=== PATIENT | female | born 1990 | race Caucasian/White ===

== ENCOUNTER → 2024-03-31 10:33 | Outpatient (BNVA) | payer BC, SELFPAY | PROVIDERS: Visit Provider Surgery ==

== ENCOUNTER 2024-04-08 07:53 | Outpatient (AMB) | payer BC, SELFPAY ==
--- OUTSIDE RECORDS SUMMARY | 2024-04-08 07:55 | XMS_ITS | Continuity of Care Document ---
Author Organization [facility] [employer]. Address [address] [place] [address] Phone Allergies, Adverse Reactions, Alerts No known allergies Social History Smoking Status Status Start Date End Date Date of Observa tion Never smoked tobacco (finding) January 25, 2024 4:49pm Observation Status Observation Response Date of Response Patient Sex Female February 06, 2024 12:57pm Assigned Sex Female December 12 1 Status Not July 30, 024 Family History Relationship Condition Age at Onset Recorded Date/T jamilah Not Specified Arthritis Unknown Not Specified Anxiety Unknown Intellectual disability Unknown Asthma Unknown Malignant neoplasm of colon Unknown Not Specified Anxiety Unknown Asthma Unknown Not Specified Malignant neoplasm of breast Unknown Not Specified History of malignant neoplasm of cervix Unknown Problems Active Problems Medical Problem Onset Date Status Comments Obstructive sleep apnea syndrome Active Neoplasm of uncertain behavior of skin Ac tive Cervical dysplasia Active Flu-like symptoms Active Calculus of kidney Active x2 H/O LEEP Active Cervical high risk HPV (idris n papillomavirus) test positive Active Obesity Active Remove/insert IUD Active ParaGard Inactive/Resolved Problems Medical Problem Onset Date Status Comments Insomnia Resolved History of induced Resolved Encounter for insertion of m kalpesh IUD Resolved Fatigue Resolved Shortness of breath Resolved Irregular menstrual cycle Resolved Nervousness Resolved 3 Resolved Para 1, having 1 living children, aborta 1 including 1 miscarriage(s) and including 1 elective (s), vag, 9#1 Anxiety Resolved Depression Resolved Diarrhea Resolved Dysmenorrhea Resolved History of surgical removal of lesion Resolved History of third molar tooth extraction Resolved Menarche Resolved Age 12,periods ar irregular with Mirena, bleeding occurs after sexual intercourse, no vulvar itching or burning, no pain during intercourse, no vaginal discharge. Lesion of cervix Resolved Medications Medication Status Dose Units Route Directions Qty Days St art Date Stop Date End Date Instructions Fluoxetine 10 mg capsule Discont inued MG PO 0 2019 1:00am Julua ry 2023 3:41p m PROzac 10 MG Oral Capsule Hydrochlorot hiazide 25 mg tablet Active MG PO 0 2019 1:00am hydroCHLOROth iazide 25 MG Oral Tablet Cholecalcife rol (Vitamin D3) 4,000 unit capsule Discont inued 4000 UNIT PO daily 2019 1:00am 2023 3:41p m Bupropion Hcl 75 mg tablet Discont inued 75 MG PO twice a day Octobe r 2019 12:00a m Julua ry 2023 3:40p m Fluoxetine 20 mg tablet Discont inued 50 MG PO Aprobe r 2019 12:00a m ry 2023 3:41p m Doxycycline Hyclate 100 mg capsule Discont inued 100 MG PO twice a day Aprobe r 2019 12:00a m Octob er 2019 12:02 am Bupropion Hcl (Wellbutrin Xl) 300 mg tablet extended release 24 hr Discont inued 300 MG PO every morning December 10, 2023 12:00a m January 28, 2024 11:23 am Methylphenid ate Hcl (Ritalin) 20 mg tablet Discont inued 20 MG PO every morning December 10, 2023 12:00a m January 28, 2024 11:23 am Copper (Paragard T 380a) 380 square mm intrauterine device Active 1 DEVICE INTRAU JESUS once 2023 1:00am as a single dose Fluoxetine 40 mg capsule Active 40 MG PO daily January 28, 2024 12:00a m Methylphenid ate Hcl 40 mg capsule, ER biphasic 30-70 Active 40 MG PO daily January 28, 2024 12:00a m Ondansetron 4 mg tablet,disin tegrating Discont inued 4 MG PO every 8 hr (06,14,) as needed for nausea and vomiting December 22, 2023 12:00a m January 28, 2024 11:23 am Immunizations Immunization Event Date Not Given Reason Dose Number Hardening 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 Home Phone: Payer Policy Id Coverage Id Subscriber's Name Subscriber Id Effective Date Expiration Date Tu TOVAR [id number] Mannie Romero [id number] 2017
--- OUTSIDE RECORDS SUMMARY | 2024-04-08 07:55 | XMS_ITS | Continuity of Care Document ---
Author Organization [employer] Address [address] [place], [place] [address] [address] SOCIAL HISTORY Not on file MENTAL STATUS Not on file ENCOUNTERS Reason for Visit Encounter Type Attending Provider Locatio n Date Not Specified Not Specified Vesna Toth 12/29/2023 Not Specified Not Specified Janey, Vesna 01/12/2024 Not Specified Not Specified Toth, Vesna 01/26/2024 Not Specified Not Specified Toth, Vesna 01/05/2024 Not Specified Not Specified Toth, Vesna 02/09/2024 Not Specified Not Specified Toth, Vesna 03/01/2024 Not Specified Not Specified Toth, Vesna 03/17/2024 Not Specified Not Specified Janey, Vesna 03/23/2024 Not Specified Not Specified Janey, Vesna 03/24/2024 Not Specified Not Specified Toth, Vesna 04/01/2024 FAMILY HISTORY Not on file
--- NOTE | 2024-04-08 08:04 | A.OFFVIS_ITS ---
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 Allergies pollen extracts Allergy (Intermediate, Verified 04/08/24 08:05) Itchy Eyes Medication List - Last Reconciled 04/08/24 by Ralph Pinon MD cholecalciferol (vitamin D3) 250 mcg PO DAILY fluoxetine (Prozac) 60 mg PO DAILY hydrochlorothiazide 25 mg PO DAILY losartan 25 mg PO DAILY olanzapine 7.5 mg PO DAILY HPI 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 [employer]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: Details: Start time: 8.00am, End time: 8.37am ?I spent 32 minutes speaking with the patient on the phone plus an additional 5 minutes reviewing and updating records for a total of 37 minutes HPI Comments Details: Previous weight loss efforts: Keto diet, calorie counting, exercise Wakes up: 7am, Sleeps: 10pm Breakfast: 8am (protein bar) Lunch: 12pm (soup and crackers or pasta) Dinner: 6pm (pizza, chicken with pasta, mashed potatoes) Snacks: 3-4pm (nuts), 8pm (occ crackers) Exercise: Has treadmill and elliptical and Gym daily Fluids: Coffee: none, Hot tea: daily with sugar, soda: none, juice: occasionally, ETOH: rarely PFSH Medical History (Updated 04/08/24 @ 08:09 by Ralph Pinon MD) Back pain GERD (gastroesophageal reflux disease) Anxiety Depression Obstructive sleep apnea on CPAP Hypertension Morbid obesity Surgical History (Updated 03/31/24 @ 14:09 by Daysi Hawk CMA) History of elective Hx of wisdom tooth extraction Family History (Updated 03/31/24 @ 11:23 by Daysi Hawk CMA) Paternal Grandmother Colon cancer Maternal Grandmother Breast cancer Paternal Aunt Cervical cancer Paternal Grandfather Mesothelioma Social History (Updated 03/31/24 @ 11:18 by Daysi Hawk CMA) Alcohol intake: current Alcohol intake frequency: holidays/special occasions only Alcohol type: other Patient Tobacco Use Status: Never used Tobacco Telehealth Telehealth Telehealth Platform: Telephone Location of provider rendering services: practice address Location of patient: address on file Patient Identification confirmed using: Name, : Yes Telehealth method: voice only Patient verbally consented to treatment: Yes Patient verbally consented to billing insurance company: Yes Patient informed of any privacy concerns related to visit: Yes Minutes spent on Phone/Video with Pt.: 37 Assessment & Plan Assessment & Plan (1) Morbid obesity: Code(s): E66.01 - Morbid (severe) obesity due to excess calories Category: Medical Plan: 1.? Plan for lap sleeve gastrectomy. If diaphragmatic or ventral hernias are present at time of surgery, these will be repaired laparoscopically as well. Risks and complications include possible conversion to an open procedure, anastomotic leak, bleeding requiring transfusion, small bowel obstruction, , DVT and pulmonary embolism, cardiac, or pulmonary complications, as vermin exterminator complications such as anastomotic ulcer, insufficient weight loss and vitamin deficiencies. I emphasized the importance of close follow-up, adherence to instructions and good communication. 2. You will receive a link of our software emili to generate an individualized nutritional and exercise plan specific for you. Please send me a screenshot of the plans you will generate Meal to include lean meat (beef, fish, pork, turkey, chicken), or malagasy yogurt, or egg whites, or beans with a salad with olive oil and fruits (berries, pears, apples, kiwi). Avoid salt, breads, potatoes, rice, pasta, desserts. ?3. If you choose shakes, each shake would be drunk slowly, like coffee in a period of 2 hours. ?4. If you choose bars, cut each bar in 4 pieces and eat each piece in 30min ?to make each bar last 2 hours. ?5. I emphasized the importance of measuring accurately the food portion and measure it when serving the food in plate ?6. The meal portions include a specific number of forks of meat and salad. You always eat the meat portion but you can replace up to half of salad/vegetables portion with rice, potatoes or pasta, or a fruit ?if you like. The less you do it the better weight loss will be. ?7. One full-size fork is what it can be scooped on the fork without falling aside and not what can be bit with the fork. Use regular forks like those you find in a typical restaurant. ?8.? Please send me weight measurements as soon as possible and then once a week. Always include your diet and exercise plan. ?9.?It is important of avoiding and for at least 18 months postoperatively and has been discussed at the infosession. ?10. Goal is to lose at least 1.5-2lbs per week ?11. Goal to lose 10% of your weight before surgery, which is about 32lbs. Ultimate weight goal: 289lbs before surgery 12. Please follow the diet plan exactly without any change. If you don't like something about the plan or you feel hungry you need to communicate with me so I can help you revise the plan. You should not change the plan yourself. 13. To be scheduled for EGD due to assess the stomach's anatomy. The possibility of biopsies was discussed. Patient needs to avoid use of NSAIDs and aspirin for 1 week prior to EGD. Risks of perforation and bleeding was discussed with the patient. This will be an outpatient procedure with IV sedation. Orders: Orders Insulin Today E66.01 - Morbid (severe) obesity due to excess calories, G47.33 - Obstructive sleep apnea (adult) (pediatric), I10 - Essential (primary) hypertension, K21.9 - Gastro-esophageal reflux disease without esophagitis H Pylori Breath Test Today E66.01 - Morbid (severe) obesity due to excess calories, G47.33 - Obstructive sleep apnea (adult) (pediatric), I10 - Essential (primary) hypertension, K21.9 - Gastro-esophageal reflux disease without esophagitis Lipid Panel Today E66.01 - Morbid (severe) obesity due to excess calories, G47.33 - Obstructive sleep apnea (adult) (pediatric), I10 - Essential (primary) hypertension, K21.9 - Gastro-esophageal reflux disease without esophagitis IRON PROFILE Today E66.01 - Morbid (severe) obesity due to excess calories, G47.33 - Obstructive sleep apnea (adult) (pediatric), I10 - Essential (primary) hypertension, K21.9 - Gastro-esophageal reflux disease without esophagitis Zinc Today E66.01 - Morbid (severe) obesity due to excess calories, G47.33 - Obstructive sleep apnea (adult) (pediatric), I10 - Essential (primary) hypertension, K21.9 - Gastro-esophageal reflux disease without esophagitis Vitamin B1 Today E66.01 - Morbid (severe) obesity due to excess calories, G47.33 - Obstructive sleep apnea (adult) (pediatric), I10 - Essential (primary) hypertension, K21.9 - Gastro-esophageal reflux disease without esophagitis Vitamin A Today E66.01 - Morbid (severe) obesity due to excess calories, G47.33 - Obstructive sleep apnea (adult) (pediatric), I10 - Essential (primary) hypertension, K21.9 - Gastro-esophageal reflux disease without esophagitis Ferritin Today E66.01 - Morbid (severe) obesity due to excess calories, G47.33 - Obstructive sleep apnea (adult) (pediatric), I10 - Essential (primary) hypertension, K21.9 - Gastro-esophageal reflux disease without esophagitis US abdomen comp w elastography Today E66.01 - Morbid (severe) obesity due to excess calories, G47.33 - Obstructive sleep apnea (adult) (pediatric), I10 - Essential (primary) hypertension, K21.9 - Gastro-esophageal reflux disease without esophagitis XR chest 2V Today E66.01 - Morbid (severe) obesity due to excess calories, G47.33 - Obstructive sleep apnea (adult) (pediatric), I10 - Essential (primary) hypertension, K21.9 - Gastro-esophageal reflux disease without esophagitis FL upper GI w air Today E66.01 - Morbid (severe) obesity due to excess calories, G47.33 - Obstructive sleep apnea (adult) (pediatric), I10 - Essential (primary) hypertension, K21.9 - Gastro-esophageal reflux disease without esophagitis Hemoglobin A1c Today E66.01 - Morbid (severe) obesity due to excess calories, G47.33 - Obstructive sleep apnea (adult) (pediatric), I10 - Essential (primary) hypertension, K21.9 - Gastro-esophageal reflux disease without esophagitis Complete Blood Count Auto Diff Today E66.01 - Morbid (severe) obesity due to excess calories, G47.33 - Obstructive sleep apnea (adult) (pediatric), I10 - Essential (primary) hypertension, K21.9 - Gastro-esophageal reflux disease w ithout esophagitis Comprehensive Met. Panel Today E66.01 - Morbid (severe) obesity due to excess calories, G47.33 - Obstructive sleep apnea (adult) (pediatric), I10 - Essential (primary) hypertension, K21.9 - Gastro-esophageal reflux disease without esophagitis Vitamin B12 and Folate Today E66.01 - Morbid (severe) obesity due to excess calories, G47.33 - Obstructive sleep apnea (adult) (pediatric), I10 - Essential (primary) hypertension, K21.9 - Gastro-esophageal reflux disease without esophagitis C Reactive Protein Today E66.01 - Morbid (severe) obesity due to excess calories, G47.33 - Obstructive sleep apnea (adult) (pediatric), I10 - Essential (primary) hypertension, K21.9 - Gastro-esophageal reflux disease without esophagitis TSH reflex Free T4 Today E66.01 - Morbid (severe) obesity due to excess calories, G47.33 - Obstructive sleep apnea (adult) (pediatric), I10 - Essential (primary) hypertension, K21.9 - Gastro-esophageal reflux disease without esophagitis Vitamin D 25-OH Total Today E66.01 - Morbid (severe) obesity due to excess calories, G47.33 - Obstructive sleep apnea (adult) (pediatric), I10 - Essential (primary) hypertension, K21.9 - Gastro-esophageal reflux disease without esophagitis ECG 12 lead EKG Today E66.01 - Morbid (severe) obesity due to excess calories, G47.33 - Obstructive sleep apnea (adult) (pediatric), I10 - Essential (primary) hypertension, K21.9 - Gastro-esophageal reflux disease without esophagitis Referrals Behavioral Health Referral E66.01 - Morbid (severe) obesity due to excess calories, G47.33 - Obstructive sleep apnea (adult) (pediatric), I10 - Essential (primary) hypertension, K21.9 - Gastro-esophageal reflux disease without esophagitis Nutrition/Dietitian Referral E66.01 - Morbid (severe) obesity due to excess calories, G47.33 - Obstructive sleep apnea (adult) (pediatric), I10 - Essential (primary) hypertension, K21.9 - Gastro-esophageal reflux disease without esophagitis
[2024-04-08 08:15] VITALS: BMI 52.1
== END 2024-04-08 08:37 | disposition home or self-care (01) ==
LOC: HO.HBS 07:53
PROVIDERS: PCP Family Medicine; Visit Provider Surgery
DX: E66.01 Morbid (severe) obesity due to excess calories (principal); Z68.43 Body mass index [BMI] 50.0-59.9, adult
CPT/HCPCS: 99443

== ENCOUNTER → 2024-04-08 07:53 | Outpatient (BNVA) | payer BC, SELFPAY | PROVIDERS: PCP Family Medicine; Visit Provider Surgery ==

== ENCOUNTER 2024-04-14 11:18 | Outpatient (REF) | payer BC, SELFPAY ==
--- NOTE | ~2024-04-14 | XR_ITS ---
EXAMINATION: XR CHEST 3 VIEWS CLINICAL INFORMATION: Morbid (severe) obesity due to excess calories E66.01. Patient states no symptoms and part of the weight loss management program. COMPARISON: None available TECHNIQUE: 3 views of the chest were obtained. FINDINGS: No significant abnormality is noted involving the heart, lungs, mediastinum, bony thorax or soft tissues. XR/XR chest 2V IMPRESSION: Unremarkable examination. Electronically signed by: Elina Kahn MD 06/22/2024 03:13 PM MATHEW
--- NOTE | 2024-04-14 11:27 | ECG_ITS ---
Test Reason : E66.01 Blood Pressure : / mmHG Vent. Rate : 065 BPM Atrial Rate : 065 BPM P-R Int : 156 ms QRS Dur : 086 ms QT Int : 428 ms P-R-T Axes : 021 024 029 degrees QTc Int : 445 ms Normal sinus rhythm Normal ECG No previous ECGs available Referred By: Ralph Pinon Electronically Signed By:BULMARO DARNELL
[2024-04-14 11:47] LABS: MANUAL DIFF FLAG NO
[2024-04-14 11:59] LABS: Basophils Percent Auto 0.3 % (0-2); Eosinophils Absolute Auto 0.2 X10*3/uL (0.0-0.4); Eosinophils Percent Auto 2.4 % (0-4); Hematocrit 38.9 % (37.0-47.0); Hemoglobin 12.3 g/dl (12.0-16.0); Imm Gran Abs Auto 0.02 X10*3/uL (0.00-0.03); Imm Gran Pct Auto 0.2 % (0.0-0.4); Lymphocytes Absolute Auto 2.3 X10*3/uL (1.2-4.9); Lymphocytes Percent Auto 25.7 % (20-40); Mean Corpuscular HGB Conc 31.6 g/dl (31.0-35.0); Mean Corpuscular Hemoglobin 28.7 pg (27.0-33.0); Mean Corpuscular Volume 90.7 fL (80.0-98.0); Mean Platelet Volume 9.9 fL (9.4-12.3); Monocytes Absolute Auto 0.6 X10*3/uL (0.1-1.2); Monocytes Percent Auto 6.9 % (2-11); Neutrophils Absolute Auto 5.9 x10*3/uL (2.0-8.3); Neutrophils Percent Auto 64.5 % (45-73); Platelet Count 337 X10*3/uL (160-400); Red Blood Count 4.29 X10*6/uL (4.20-5.50); Red Cell Distribution Width 13.3 % (11.0-16.0); White Blood Count 9.1 X10*3/uL (4.8-10.8)
[2024-04-14 12:08] LABS: Estimated Average Glucose 97 mg/dL; Hemoglobin A1C 99.4183 umol/L; Total Hemoglobin (HGBA1C) 3172.9579 umol/L
[2024-04-14 12:30] LABS: Alanine Aminotransferase 23 U/L (0-31); Alkaline Phosphatase 90 U/L (39-117); Anion Gap 11 (12-20); Aspartate Amino Transferase 24 U/L (5-31); Bilirubin Total 0.6 mg/dL (0.0-1.0); Blood Urea Nitrogen 11 mg/dL (9-16); C Reactive Protein 1.46 mg/dL (< or = 0.50); Calcium 9.9 mg/dL (8.4-10.2); Carbon Dioxide 26 mmol/L (22-29); Chloride 106 mmol/L (96-108); Cholesterol 163 mg/dL (<200); Estimated Glomerular Filt Rate > 60; Glucose Random 90 mg/dL (60-115); HDL Cholesterol 54 mg/dL (>40); Iron 36 mcg/dL (30-160); LDL Cholesterol Calculated 96 mg/dL (<100); Percent Iron Saturation 13 % (15-50); Sodium 139 mmol/L (135-145); Total Iron Binding Capacity 276 mcg/dL (228-428); Total Protein 7.8 g/dL (6.5-8.0); Triglycerides 66 mg/dL (<150); Unsaturated Iron Binding 240 ug/dL
[2024-04-14 12:49] LABS: Ferritin 45 ng/mL (10-122); Insulin 7 uU/mL (2-29); TSH reflex Free T4 0.84 uIU/mL (0.32-4.0)
[2024-04-14 12:52] LABS: Folate 10.7 ng/mL (> or = 4.0); Vitamin B12 1025 pg/mL (200-900)
[2024-04-18 17:44] LABS: Zinc 103 mcg/dL (60-130)
[2024-04-19 22:59] LABS: Vitamin A 32 mcg/dL (38-98)
[2024-04-21 16:43] LABS: Vitamin B1 8 nmol/L (8-30)
== END 2024-04-14 11:19 | disposition home or self-care (01) ==
LOC: HO.LAB 11:18
PROVIDERS: Visit Provider Surgery
DX: E66.01 Morbid (severe) obesity due to excess calories (principal); I10 Essential (primary) hypertension; G47.33 Obstructive sleep apnea (adult) (pediatric); K21.9 Gastro-esophageal reflux disease without esophagitis
CPT/HCPCS: 36415; 71046; 80053; 80061; 82306; 82607; 82728; 82746; 83036; 83525; 83540; 84425; 84443; 84590; 84630; 85025; 86140; 93005

== ENCOUNTER → 2024-04-19 13:14 | Outpatient (BNVA) | payer BC, SELFPAY | PROVIDERS: Visit Provider Counselor Mental Health ==

== ENCOUNTER → 2024-04-19 13:14 | Outpatient (AMB) | payer BC, SELFPAY ==
--- NOTE | 2024-04-19 13:05 | A.OFFWM_ITS ---
Intake Intake Visit Reasons: VIDEO Intake Allergies pollen extracts Allergy (Intermediate, Verified 04/08/24 08:05) Itchy Eyes PFSH Medical History (Updated 04/08/24 @ 08:09 by Ralph Pionn MD) Back pain GERD (gastroesophageal reflux disease) Anxiety Depression Obstructive sleep apnea on CPAP Hypertension Morbid obesity Surgical History (Updated 03/31/24 @ 14:09 by Daysi Hawk CMA) History of elective Hx of wisdom tooth extraction Family History (Updated 03/31/24 @ 11:23 by Daysi Hawk CMA) Paternal Grandmother Colon cancer Maternal Grandmother Breast cancer Paternal Aunt Cervical cancer Paternal Grandfather Mesothelioma Social History (Updated 03/31/24 @ 11:18 by Daysi Hawk CMA) Alcohol intake: current Alcohol intake frequency: holidays/special occasions only Alcohol type: other Patient Tobacco Use Status: Never used Tobacco Behavioral Health Assessment Weight Management Therapy Therapy Notes Details PT is a 33 years old female, [facility]. Presenting Concerns Referral Source [facility] provider. Reason for referral Completion of behavioral health assessment as part of process for weight-loss surgery. Precipitating Event Obesity and other medical issues. Living Situation Current Living Situation Own At risk of losing current housing? No Satisfied with current living situation? Yes Comments PT lives with her , 12 y/o daughter and 4 pets (2 cats and 2 dogs) Food/Weight/Diet Expectations of change Initial Goal to lose 10% of her weight before surgery, which is about 32lbs. Ultimate weight goal: 289lbs before surgery PT wants to be at a point she won't need her HBP medications and CPAP machine. PT is implementing the following: Current meal plan: 2 shakes, 1 bar and 1 meal. Exercise plan: attending the gym daily day, burning 285 calories each day. she does the treadmill and step machine. History/Relationship with food PT reports food is linked to a way to connect family. There is a history of using food as a reward when having a good day or a bad day. Slovak fries when having a rough day. Growing up it was expected to have seconds for dinner. Considers a picky eater, have had issues with textures. Eating meat or some veggies causes her to gag and loss appetite. Example of meals before starting the program: Breakfast: Coffee or tea with sugar most of the time or a toast with peanut butter. Lunch: soup or rice Dinner: mash potatoes/pasta/pizza. Usually carb heavy. Dessert: a few times at week ice cream Snacks: mostly after dinner and would be chips, crackers, candy. Drinks/Liquids: 2 cups of Coffee, energy drinks every other day, half a littler of water at day. History/Relationship with weight PT reports she has been overweight since she can remember. And has been steadily increasing as she ages. Most of her family are big. In the last 10 years, the patient's Lowest weight was 260Lbs and highest 325Lbs History/Relationship with dieting Diet/exercise, Ketto diet, intermittent fast. Binge Eating Do you frequently eat large amounts of food in short periods of time, not feeling physically hungry? Yes Do you feel out of control when you eat a large amount of food in a short period of time? No Do you eat large amounts of food rapidly and typically alone? No Night Eating Do you wake up at least once during the night to eat? No If you wake up in the night, do you find that it is necessary to eat something in order to fall back asleep? No Do you have little or no appetite in the morning and feel very hungry in the evening, often overeating between dinner and when you go to bed? Yes Social History Family history and relationship PT has been for 9 years and has a daughter. She has 2 younger siblings, parents alive. She's close to her mother. PT reports she has ok family relationships but they're not that close. 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 Developmental history and status Currently diagnosed with ADD. Social support and daughter. 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 Anglican/Spirituality None. Cultural/Ethnic information . Legal Involvement and History Current or historical involvement with the legal system? None reported. Education Highest grade completed 2 Masters degree Preferred learning style Learn by doing Currently enrolled in educational program? Yes Interested in further educational program? Yes Educational Interests/Skills PT has a masters degree in Psychology and another in clinical psychology. Enrolled in a PHD program for clinical psychology. She is interested in neuropsychology. 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 ) Wants help to find employment? No Meaningful activities Reading, micro legos, family time. Financial Situation Describe current financial situation Comfortable Financial assistance? None Service Service? No Mental Health and Addiction Treatment Psychiatric history PT attends therapy on a weekly basis Suni Davis LCSW at [facility] [employer]. Diagnosed with ADHD, depression and anxiety. Pain Screening Current pain? No Pain in the last few months? Yes Comments Lower back and right knee pain. Medications Is the patient compliant with medications? Yes Does the patient have Christopher Guardian in place? Not applicable Does the patient use complimentary health approaches? Yes (Massages once in a while. ) Questionnaires PHQ-9 Over the last 2 weeks, how often have you been bothered by any of the following problems? 1. Little interest or pleasure in doing things: more than half the days 2. Feeling down, depressed, or hopeless: more than half the days 3. Trouble falling or staying asleep, or sleeping too much: nearly every day 4. Feeling tired or having little energy: nearly every day 5. Poor appetite or overeating: nearly every day 6. Feeling bad about yourself - or that you are a failure or have let yourself or your family down: several days 7. Trouble concentrating on things, such as reading the newspaper or watching television: nearly every day 8. Moving or speaking so slowly that other people could have noticed. Or the opposite - being so fidgety or restless that you have been moving around a lot more than usual: not at all 9. Thoughts that you would be better off or of hurting yourself in some way: several days Total score: 18 Depression Screening Interpretation: Positive Depression Screening Follow-up: Existing condition Depression Screening Done: Yes Source: Developed by Drs. Mannie Ny, Berenice Adams, Jose D Borrego and colleagues, with an educational usama from [employer]. Binge Eating Scale Group 1 A. I don't feel self-conscious about my wt. or body size when I'm with others. B. I feel concerned about how I look to others, but it normally does not make me fell disappointed with myself C. I do get self-conscious about my appearance and wt. which makes me feel disappointed in myself. D. I feel very self-conscious about my wt. and frequently I feel intense shame and disgust for myself. I try to avoid social contacts because of my self- consciousness. Response Group 1: D Group 2 A. I don't have any difficulty eating slowly in the proper manner. B. Although I seem to gobble down foods, I don't end up feeling stuffed because of eating to much. C. At times, I tend to eat quickly and then, I feel uncomfortably full afterwards. D. I have the habit of bolting down my food, without really chewing it. When this happens I usually feel uncomfortably stuffed because I've eaten to much. Response Group 2: B Group 3 A. I feel capable to control my eating urges when I want to. B. I feel like I have failed to control my eating more than the average person. C. I feel utterly helpless when it comes to feeling in control of my eating urges. D. Because I feel so helpless about controlling my eating I have become very desperate about trying to get control. Response Group 3: B Group 4 A. I don't have the habit of eating when I'm bored. B. I sometimes eat when I'm bored, but often I'm able to get busy and get my mind off food. C. I have a regular habit of eating when I'm bored, but occasionally, I can use some other activity to get my mind off eating. D. I have a strong habit of eating when I'm bored. Nothing seems to help me breath the habit. Response Group 4: C Group 5 A. I'm usually physically hungry when I eat something. B. Occasionally, I eat something on impulse even though I really am not hungry. C. I have the regular habit of eating foods, that I might not really enjoy, to satisfy a hungry feeling even though physically, I don't need the food. D. Although I'm not physically hungry, I get a hungry feeling in my mouth that only seems to be satisfied when I eat a food, like sandwich, that fills my mouth. Sometimes, when I eat the food to satisfy my mouth hunger, I then spit the food out so I won't gain weight. Response Group 5: C Group 6 A. I don't feel any guilt or self-hate after I overeat. B. After I overeat, occasionally I feel guilt or self-hate. C. Almost all the time I experience strong guilt or self-hate after I overeat. Response Group 6: C Group 7 A. I don't lose total control of my eating when dieting even after periods when I overeat. B. Sometimes when I eat a forbidden food on a diet, I feel like I blew it and eat even more. C. Frequently, I have the habit of saying to myself, I've blown it now, why not go all the way, when I overeat on a diet. When that happens I eat more. D. I have a regular habit of starting a strict diets for myself but I break the diets by going on an eating binge. My life seems to be either a feast or famine. Response Group 7: A Group 8 A. I rarely eat so much food that I feel uncomfortably stuffed afterwards. B. Usually about once a month, I each such a quantity of food, I end up feeling very stuffed. C. I have regular periods during the month when I eat large amounts of food, either at mealtime or at snacks. D. I eat so much food that I regularly feel quite uncomfortable after eating and sometimes a bit nauseous. Response Group 8: A Group 9 A. My level of calorie intake does not go up very high or go down very low on a regular basis. B. Sometimes after I overeat, I will try to reduce my caloric intake to almost nothing to compensate for the excess calories I've eaten. C. I have a regular habit of overeating during the night. It seems that my routine is not to be hungry in the morning but overeat in the evening. D. In my adult years, I have had week-long periods where I practically starve myself. This follows periods when I overeat. It seems I live a life of either feast or famine. Response Group 9: A Group 10 A. I usually am able to stop eating when I want to. I know when enough is enough. B. Every so often, I experience a compulsion to eat which I can't seem to control. C. Frequently, I experience strong urges to eat which I seem unable to control, but at other times I can control my eating urges. D. I feel incapable of controlling urges to eat. I have a fear of not being able to stop eating voluntarily. Response Group 10: C Group 11 A. I don't have any problem stopping eating when I feel full. B. I usually can stop eating when I feel full but occasionally overeat leaving me feeling uncomfortably stuffed. C. I have a problem stopping eating once I start and usually I feel uncomfortably stuffed after I eat a meal. D. Because I have a problem not being able to stop eating when I want, I sometimes have to induce vomiting to relieve my stuffed feeling. Response Group 11: B Group 12 A. I seem to eat just as much when I'm with others, Family social gatherings as when I'm by myself. B. Sometimes, when I'm with other persons, I don't eat as much as I want to eat because I'm self-conscious about my eating. C. Frequently, I eat only a small amount of food when others are present, because I'm very embarrassed about my eating. D. I feel so ashamed about overeating that I pick times to overeat when I know no one will see me. I feel like a closet eater. Response Group 12: A Group 13 A. I eat three meals a day with only an occasional between meal snack. B. I eat 3 meals a day, but I also normally snack between meals. C. When I am snacking heavily, I get in the habit of skipping regular meals. D. There are regular periods when I seem to be continually eating, with no planned meals. Response Group 13: B Group 14 A. I don't think much about trying to control unwanted eating urges. B. At least some of the time, I feel my thoughts are pre-occupied with trying to control my eating urges. C. I feel that frequently I spend much time thinking about how much I ate or about trying not to eat anymore. D. It seems to me that most of my waking hours are pre-occupied by thoughts about eating or not eating. I feel like I'm constantly struggling not to eat. Response Group 14: B Group 15 A. I don't think about food a great deal. B. I have strong craving for food but they last only for brief periods of time. C. I have days when I can't seem to think about anything else but food. D. Most of my days seem to be pre-occupied with thoughts about food. I feel like I live to eat. Response Group 15: B Group 16 A. I usually know whether or not I'm physically hungry. I take the right portion of food to satisfy me. B. Occasionally, I feel uncertain about knowing whether or not I'm physically hungry. A these times it's hard to know how much food I should take to satisfy me. C. Even though I might know how many calories I should eat, I don't have any idea what is a normal amount of food for me. Response Group 16: B Binge Eating Score: 18 Score less than 17 Minimal Risk Score between 18-26 Moderate Risk Score between 27-46 High Risk Assessment & Plan Assessment & Plan (1) Depression: Code(s): F32.A - Depression, unspecified (2) Anxiety: Code(s): F41.9 - Anxiety disorder, unspecified Plan PT not cleared today, will return on 05/10/24 to complete assessment. At next visit, PHQ-9 will be administered again. Coding Level of Care Code New Pt Tele Psy Diag [place] (63222) Patient Type New Diagnoses Depression F32.A Anxiety F41.9 Time Spent (min) 50
== END ==
LOC: HO.HBST 13:14
PROVIDERS: Visit Provider Counselor Mental Health
DX: F32.A Depression, unspecified (principal); F41.9 Anxiety disorder, unspecified
CPT/HCPCS: 90791

== ENCOUNTER 2024-04-20 08:40 | Outpatient (REF) | payer BC, SELFPAY ==
--- NOTE | ~2024-04-20 | US_ITS ---
EXAMINATION: US COMPLETE ABDOMEN WITH LIVER ELASTOGRAPHY CLINICAL INFORMATION: Morbid obesity. COMPARISON: None available. TECHNIQUE: Real-time imaging of the abdominal viscera. Noninvasive ultrasound liver fibrosis assessment is performed using Natasha ElastPQ point quantification shear wave elastography (pSWE) with a C5-2 MHz transducer. Multiple elastography samples are obtained. FINDINGS: PANCREAS: Normal. The visualized pancreatic head and body are normal in appearance. The remainder of the pancreas is obscured from visualization by the overlying bowel gas. ABDOMINAL AORTA: The proximal, middle, and distal aortic segments are normal in caliber. INFERIOR VENA CAVA: Visualized portions are normal. LIVER: The liver demonstrates normal size and contour but with increased echogenicity consistent with hepatic steatosis. No focal lesion or intrahepatic biliary duct dilatation. The right lobe measures 15.3 cm in length. The left lobe measures 10.5 cm in length. Portal flow is towards the liver (hepatopetal). Shear wave liver elastography median stiffness is 1.69 m/s (reference: normal median stiffness is 1.3 m/s or less). IQR/median stiffness to assess sampling precision is 0.12 (reference: good quality data set is IQR/median stiffness of 0.15 or less). GALLBLADDER: Normal. The gallbladder is physiologically distended without evidence of stones, sludge, polyps, wall thickening or pericholecystic fluid. COMMON BILE DUCT: Normal in caliber measuring 0.4 cm in diameter. RIGHT KIDNEY: Normal. No hydronephrosis. No renal calculi or focal parenchymal lesions. The kidney measures 12.3 cm in maximum dimension. LEFT KIDNEY: Normal. No hydronephrosis. No renal calculi or focal parenchymal lesions. The kidney measures 12.7 cm in maximum dimension. SPLEEN: The spleen measures 12.3 cm in maximum dimension. FREE FLUID: None. US/US abdomen comp w elastography IMPRESSION: 1. Hepatic steatosis. 2. Liver elastography: In the absence of other known clinical signs, measurements rule out compensated advanced chronic liver disease. If there are known clinical signs, further testing may be needed for confirmation. REFERENCE: Society of Radiologists in Ultrasound Liver Stiffness Thresholds (2020): LIVER STIFFNESS THRESHOLDS: *Liver Stiffness equal or less than 1.3 m/s: High probability of being normal. *Liver Stiffness less than 1.7 m/s: In the absence of other known clinical signs, rules out compensated advanced chronic liver disease. *Liver Stiffness 1.7-2.1 m/s: Suggestive of compensated advanced chronic liver disease but need further test for confirmation. *Liver Stiffness over 2.1 m/s: Rules in compensated advanced chronic liver disease. *Liver Stiffness over 2.4 m/s: Suggestive of clinically significant portal hypertension. QUALITY OF DATA SET: *IQR/Median value equal or less than 0.15 implies a quality data set. *IQR/Median value over 0.15 implies a poor quality data set. SIGNIFICANT CHANGE FROM PRIOR EXAM: Significant change if liver stiffness measurement is 10% or greater from prior exam. OTHER CONSIDERATIONS: The stage of liver fibrosis may be overestimated in the setting of acute hepatitis, liver inflammation, elevated liver function tests, hepatic vascular congestion, obstructive cholestasis, non-fasting state, and infiltrative diseases such as amyloidosis and lymphoma. In some patients with NAFLD, the liver stiffness thresholds for compensated advanced chronic liver disease may be lower. In causes other than viral hepatitis and NAFLD, liver stiffness thresholds are not well established. Electronically signed by: Candelario Sharma MD 06/23/2024 11:51 AM MATHEW
== END 2024-04-20 08:41 | disposition home or self-care (01) ==
LOC: HO.US 08:40
PROVIDERS: PCP Family Medicine; Visit Provider Surgery
DX: E66.01 Morbid (severe) obesity due to excess calories (principal); K21.9 Gastro-esophageal reflux disease without esophagitis; I10 Essential (primary) hypertension; G47.33 Obstructive sleep apnea (adult) (pediatric)
CPT/HCPCS: 76700; 76981

== ENCOUNTER 2024-05-04 08:43 | Day surgery (SDC) | payer BC, SELFPAY ==
[2024-05-02 13:22] VITALS: BMI 52.1
--- NOTE | 2024-05-03 08:29 | HO.ANESPROP2 ---
Documented by User: Melanie Crespo NP 05/03/24 08:29 HPI - Anesthesia Eval Consult details Narrative: 33yo F for Upper Endoscopy PMFSH Active Problems Active Problems: All Active Problems Vitamin A deficiency (Acute) Back pain (Acute) GERD (gastroesophageal reflux disease) (Acute) Anxiety (Acute) Depression (Acute) Obstructive sleep apnea on CPAP (Acute) Hypertension (Acute) Morbid obesity (Acute) Past Medical History Medical History Back pain GERD (gastroesophageal reflux disease) Anxiety Depression Obstructive sleep apnea on CPAP Hypertension Morbid obesity Family History Family History Paternal Grandmother Colon cancer Maternal Grandmother Breast cancer Paternal Aunt Cervical cancer Paternal Grandfather Mesothelioma Surgical History Surgical History History of elective Hx of wisdom tooth extraction Social History Social History Alcohol intake: current Alcohol intake frequency: holidays/special occasions only Alcohol type: other Patient Tobacco Use Status: Never used Tobacco Meds Allergies Allergy/AdvReac Type Severity Reaction Status Date / Time pollen extracts Allergy Intermediate Itchy Eyes Verified 05/04/24 09:10 Home Medications ?Medication ?Instructions ?Recorded ?Confirmed ?Last Taken ?Type fluoxetine 20 mg capsule (Prozac) 60 mg PO DAILY 03/31/24 05/04/24 Unknown History hydrochlorothiazide 25 mg tablet 25 mg PO DAILY 03/31/24 05/04/24 Unknown History losartan 25 mg tablet 25 mg PO DAILY 03/31/24 05/04/24 Unknown History olanzapine 7.5 mg tablet 7.5 mg PO DAILY 03/31/24 05/04/24 Unknown History cholecalciferol (vitamin D3) 250 250 mcg PO DAILY 04/08/24 05/04/24 Unknown History mcg (10,000 unit) capsule Exam Height,Weight and Vital Signs: Height 5 ft 6 in Weight 146.51 kg Assessment and Plan Assessment Anesthesia Assessment: Chart Reviewed Documented by User: Rosaline Arredondo MD 05/04/24 12:08 [facility] Past Medical History Medical History Back pain GERD (gastroesophageal reflux disease) Anxiety Depression Obstructive sleep apnea on CPAP Hypertension Morbid obesity Family History Family History Paternal Grandmother Colon cancer Maternal Grandmother Breast cancer Paternal Aunt Cervical cancer Paternal Grandfather Mesothelioma Family history of problems with anesthesia: No Surgical History Surgical History History of elective Hx of wisdom tooth extraction History of Problems with Anesthesia: No Social History Social History Alcohol intake: current Alcohol intake frequency: holidays/special occasions only Alcohol type: other Patient Tobacco Use Status: Never used Tobacco Meds Allergies Allergy/AdvReac Type Severity Reaction Status Date / Time pollen extracts Allergy Intermediate Itchy Eyes Verified 05/04/24 09:10 Home Medications ?Medication ?Instructions ?Recorded ?Confirmed ?Last Taken ?Type fluoxetine 20 mg capsule (Prozac) 60 mg PO DAILY 03/31/24 05/04/24 Unknown History hydrochlorothiazide 25 mg tablet 25 mg PO DAILY 03/31/24 05/04/24 Unknown History losartan 25 mg tablet 25 mg PO DAILY 03/31/24 05/04/24 Unknown History olanzapine 7.5 mg tablet 7.5 mg PO DAILY 03/31/24 05/04/24 Unknown History cholecalciferol (vitamin D3) 250 250 mcg PO DAILY 04/08/24 05/04/24 Unknown History mcg (10,000 unit) capsule Exam Height,Weight and Vital Signs: Height 5 ft 6 in Weight 146.51 kg Vital Signs Temp Pulse Resp BP Pulse Ox O2 Del Method 98.0 F 70 16 141/94 H 96 Room Air 05/04/24 09:25 05/04/24 09:25 05/04/24 09:25 05/04/24 09:25 05/04/24 09:25 05/04/24 09:25 Pertinent Lab Results Pertinent Lab Results: Lab Results 05/04/24 Range/Units 09:05 Urine Test NEGATIVE (NEGATIVE) Airway Mallampati Class: II TM Dist: >3cm Neck ROM: Full Loose/Missing/Broken Teeth: No Heart: RRR Lungs: CTAB Assessment and Plan Assessment Anesthesia Assessment: Anesthesia Plan Discussed and Chart Reviewed Final Anesthetic Review Family History of Problems with Anesthesia: No History of Problems with Anesthesia: No NPO: Yes ASA Class: III Final Preanesthetic Review: No Changes in Pt Med Stat, Meds/Allgs Chart Reviewed, Consent Obtained/Reviewed and Anes Risks/Benef Reviewed Patient Risk: Intermediate Procedure Risk: Low Assessment/Block/Sedation in SS: Assess/Block/Sedation-SS Anesthetic Plan Anesthetic Plan: TIVA Disposition: Standard PACU
[2024-05-04 09:13] VITALS: BMI 49.2
[2024-05-04 09:22] LABS: UPreg QC Valid YES; Urine Pregnancy NEGATIVE (NEGATIVE)
[2024-05-04 09:25] VITALS: BP 141/94; PULSE 70; RESP 16; TEMP 36.7; O2SAT 96
[2024-05-04] MEDS: Lactated Ringers 1,000 ML 80 ML IVCONT (09:38)
--- NOTE | 2024-05-04 10:39 | P.HPSUR_ITS ---
Pre-Procedural Eval Section A - 24 Hr Update-Section A only Date of Service: 05/04/24 The patient is an INPATIENT: No The patient has been examined within 24 hours of the surgical procedure. The History & Physical has been completed within 30 days and I have reviewed it.: Yes Section B - Complete if H&P > 30 days Chief Complaint: Morbid (severe) obesity due to excess calories Details of Present Illness: GERD Relevant Family History (Specify if Yes): No Relevant Social History: None Present Medications: None Medical History: No relevant PMH History of Previous Operations: No relevant previous surgery Allergies: Allergies Allergy/AdvReac Type Severity Reaction Status Date / Time pollen extracts Allergy Intermediate Itchy Eyes Verified 05/04/24 09:10 Review of Systems Sugical H&P ROS: Negative: Constitution, Cardiovascular, Respiratory, Neurological, Psychiatric, Hem-Onc, Allergic/Immunologic, Gastrointestinal, Genitourinary, Musculoskeletal, Integumentary, Endocrine and Eyes/E ars/Nose/Throat Exam Surgical H&P Exam: Normal: HEENT, Normal: Heart, Normal: Lungs, Normal: Extremities, Normal: Abdomen, Normal: Skin and Normal: Neurological Plan Diagnosis/Plan: Unchanged (EGD to assess etiology of GERD. Risks of bleeding and perforation were discussed with the patient and she is in agreement with the plan.) I have reviewed the history and physical and performed a pertinent physical examination on my patient. No changes have occurred unless specified. Time Spent With Patient Time: Total time managing care of this patient today ____ minutes.
--- NOTE | 2024-05-04 11:21 | P.BOP_ITS ---
Brief Operative Note Date of Service: 05/04/24 Pre-op diagnosis: GERD Post-op diagnosis: same (Inability to advance the scope to distal esophagus) Procedure: PROCEDURE DATE: 05/04/2024 PREOPERATIVE DIAGNOSIS: GERD POSTOPERATIVE DIAGNOSIS: ?Same as above. 1) Inability to advance the scope to distal esophagus PROCEDURE: Esophagoscopy Surgeon: ?Norbert Pinon M.D.. Ph.D. Wool Fleece Sorter: None ? Anesthesia: IV sedation Estimated blood loss: ?Minimal FINDINGS AND PROCEDURE: ? OPERATIVE INDICATIONS: ?The patient is a 33 year old female known to me who is interested in bariatric surgery. The patient has GERD. Based on this information I recommended an upper endoscopy to evaluate the patient's symptoms. Risks and complications of the surgery were discussed with the patient in advance particularly the possibility of perforation or bleeding that may require surgical intervention. The patient understood the risks and was in agreement with the plan. ? PROCEDURE: After informed consent was obtained by the patient, the patient was ?transferred to the Operating Room and was placed in the supine position.? After successful induction of IV sedation, a mouth block was inserted and the patient was placed in the left lateral decubitus position. An upper endoscopy was performed next, the oropharynx and the upper esophagus appeared within the normal limits. However 2-3 inches after getting into the esophagus, the scope could not be advanced distally. I tried several times and adding more lubrication to the scope but it could not be advanced. Therefore the distal esophagus, stomach and duodenum could not be examined. Before further attempts with a smaller caliber scope, I will perform the UGI first. At that point the esophagus was decompressed and the scope was withdrawn from the patient's mouth. The patient extubated and was transferred in stable condition to the Recovery Room for further care. I was present and performed all steps of the procedure. There were no residents to assist with this case. Norbert Pinon M.D., Ph.D. Surgeon: Ralph Pinon MD Anesthesia: MAC Was an Wool Fleece Sorter used for this Procedure?: No Estimated blood loss (mL): 0 IV fluids (mL): 400 Urine output (mL): 0 (No Velazquez to record output) Pathology: none sent Condition: stable Disposition: PACU
[2024-05-04 12:05] VITALS: BP 111/69; PULSE 63; RESP 16; TEMP 36.6; O2SAT 98
[2024-05-04 12:20] VITALS: BP 133/80; PULSE 70; RESP 16; TEMP 36.3; O2SAT 98
== END 2024-05-04 12:40 | disposition home or self-care (01) ==
PROVIDERS: Nurse Practitioner; PCP Family Medicine; Visit Provider Surgery
PROC: 0DJ08ZZ Inspection of Upper Intestinal Tract, Via Natural or Artificial Opening Endoscopic (ICD-10-PCS; CPT 43235; principal; 2024-05-04 11:20)
DX: K21.9 Gastro-esophageal reflux disease without esophagitis (principal); E66.01 Morbid (severe) obesity due to excess calories; Z68.43 Body mass index [BMI] 50.0-59.9, adult; I10 Essential (primary) hypertension; F32.A Depression, unspecified; F41.9 Anxiety disorder, unspecified; G47.33 Obstructive sleep apnea (adult) (pediatric); Z99.89 Dependence on other enabling machines and devices; Z79.899 Other long term (current) drug therapy; Z98.890 Other specified postprocedural states
CPT/HCPCS: 43200; 81025; J1596; J2003; J2704

== ENCOUNTER → 2024-05-04 08:43 | Outpatient (BNV) | payer BC, SELFPAY | PROVIDERS: PCP Family Medicine; Visit Provider Surgery | DX: K21.9 Gastro-esophageal reflux disease without esophagitis (principal) | CPT/HCPCS: 43235 ==

== ENCOUNTER 2024-05-10 12:13 | Outpatient (AMB) | payer BC, SELFPAY ==
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
== END 2024-05-10 13:00 | disposition home or self-care (01) ==
LOC: HO.HBST 12:13
PROVIDERS: PCP Family Medicine; Visit Provider Counselor Mental Health
DX: F32.A Depression, unspecified (principal); F41.9 Anxiety disorder, unspecified
CPT/HCPCS: 90837

== ENCOUNTER → 2024-05-10 12:13 | Outpatient (BNVA) | payer BC, SELFPAY | PROVIDERS: PCP Family Medicine; Visit Provider Counselor Mental Health ==

== ENCOUNTER 2024-05-19 08:37 | Outpatient (REF) | payer BC, SELFPAY ==
--- NOTE | ~2024-05-19 | FL_ITS ---
EXAMINATION: XR FLUOROSCOPY UPPER GI WITH AIR CLINICAL INFORMATION: Preoperative evaluation prior to bariatric surgery . COMPARISON: None TECHNIQUE: Fluoroscopic air contrast upper GI examination was performed utilizing standard techniques with thin and thick barium and effervescent granules. Numerous spot images were obtained. FINDINGS: Dual and single contrast images of the esophagus demonstrate normal caliber, contour, and mucosal pattern. 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 No evidence of stricture, mass, or ulcerations identified. Esophageal peristalsis was normal. No evidence of hiatus hernia identified. No significant gastroesophageal reflux was seen during the course of the examination and on reflux views. Dual contrast and single contrast images of the stomach demonstrated normal contour and mucosal pattern without evidence of mass, ulceration, or other abnormality. Contrast freely passed into the gastric antrum and duodenal bulb without delay. Single and air-contrast images of the duodenal bulb demonstrate no abnormality. The duodenal sweep has a normal appearance, course, and mucosal fold appearance. The imaged proximal jejunum has a normal fold pattern and caliber. FLUOROSCOPY TIME: 3 minutes 27 seconds Number of Spot Images: 6 Number of Cine: 10 DOSE AREA PRODUCT: 2909 uGy-m2 (microgray-meter squared) FL/FL upper GI w air IMPRESSION: 1. 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 2. Otherwise normal exam. This procedure was performed by Toro Orellana PA-C, and supervised by Dr. Craig Electronically signed by: Garo Craig MD 05/20/2024 05:03 PM [facility]
== END 2024-05-19 08:38 | disposition home or self-care (01) ==
LOC: HO.XRAY 08:37
PROVIDERS: PCP Family Medicine; Visit Provider Surgery
DX: E66.01 Morbid (severe) obesity due to excess calories (principal); I10 Essential (primary) hypertension; G47.33 Obstructive sleep apnea (adult) (pediatric); K21.9 Gastro-esophageal reflux disease without esophagitis
CPT/HCPCS: 74246

== ENCOUNTER → 2024-05-19 08:38 | Outpatient (BNV) | payer BC, SELFPAY | PROVIDERS: PCP Family Medicine; Visit Provider Physician Assistant Surgical | DX: E66.01 Morbid (severe) obesity due to excess calories (principal); Z01.818 Encounter for other preprocedural examination | CPT/HCPCS: 74246 ==

== ENCOUNTER → 2024-05-24 08:12 | Outpatient (AMB) | payer BC, SELFPAY ==
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
== END ==
LOC: HO.HBST 08:12
PROVIDERS: PCP Family Medicine; Visit Provider Counselor Mental Health
DX: F31.81 Bipolar II disorder (principal)
CPT/HCPCS: 90837

== ENCOUNTER 2024-09-08 10:08 | Day surgery (SDC) | payer BC, SELFPAY ==
--- NOTE | 2024-09-07 13:36 | P.CONAN_ITS ---
Documented by User: Melanie Crespo NP 09/07/24 13:36 HPI - Anesthesia Eval Consult details Narrative: 33yo F for ?Upper Endoscopy with Dilitation PMFSH Active Problems Active Problems: All Active Problems Esophageal web (Acute) Vitamin A deficiency (Acute) Back pain (Acute) GERD (gastroesophageal reflux disease) (Acute) Anxiety (Acute) Depression (Acute) Obstructive sleep apnea on CPAP (Acute) Hypertension (Acute) Morbid obesity (Acute) Past Medical History Medical History Back pain GERD (gastroesophageal reflux disease) Anxiety Depression Obstructive sleep apnea on CPAP Hypertension Morbid obesity Family History Family History Paternal Grandmother Colon cancer Maternal Grandmother Breast cancer Paternal Aunt Cervical cancer Paternal Grandfather Mesothelioma Family history of problems with anesthesia: No Surgical History Surgical History History of elective Hx of wisdom tooth extraction History of Problems with Anesthesia: No Social History Social History Are you a primary personal care assistant to a significant other at home: No Do you presently have visiting nurse or other home services: No Alcohol intake: current Alcohol intake frequency: holidays/special occasions only Alcohol type: other Patient Tobacco Use Status: Never used Tobacco Use of substances other than those prescribed or required for medical reasons: No Have you been hit, kicked, punched, or otherwise hurt by someone within the past year? If so, by whom?: No Are you DNR?: No Advance Directives: No Advance Directives Information Provided: Yes Advance Directives on File: No Recently lost weight without trying: No Nutrition Risks: No Nutritional Risk Patient : No FDLMP: 08/20/2024 Meds Allergies Allergy/AdvReac Type Severity Reaction Status Date / Time pollen extracts Allergy Intermediate Itchy Eyes Verified 09/08/24 10:29 Home Medications ?Medication ?Instructions ?Recorded ?Confirmed ?Last Taken ?Type fluoxetine 20 mg capsule (Prozac) 80 mg PO DAILY 03/31/24 05/04/24 09/07/24 History hydrochlorothiazide 25 mg tablet 25 mg PO DAILY 03/31/24 05/04/24 09/07/24 History losartan 25 mg tablet 25 mg PO DAILY 03/31/24 05/04/24 09/07/24 History cholecalciferol (vitamin D3) 250 250 mcg PO DAILY 04/08/24 05/04/24 09/07/24 History mcg (10,000 unit) capsule atomoxetine 18 mg capsule 36 mg PO DAILY 09/08/24 09/08/24 09/07/24 History lurasidone 40 mg tablet 40 mg PO DAILY 09/08/24 09/08/24 09/07/24 History trazodone 50 mg tablet 50 mg PO BEDTIME PRN insomnia 09/08/24 09/08/24 Unknown History Assessment and Plan Assessment Anesthesia Assessment: Chart Reviewed Final Anesthetic Review Family History of Problems with Anesthesia: No History of Problems with Anesthesia: No Documented by User: Lavinia Rausch MD 09/08/24 11:40 [facility] Past Medical History Medical History Back pain GERD (gastroesophageal reflux disease) Anxiety Depression Obstructive sleep apnea on CPAP Hypertension Morbid obesity Family History Family History Paternal Grandmother Colon cancer Maternal Grandmother Breast cancer Paternal Aunt Cervical cancer Paternal Grandfather Mesothelioma Surgical History Surgical History History of elective Hx of wisdom tooth extraction Social History Social History Are you a primary personal care assistant to a significant other at home: No Do you presently have visiting nurse or other home services: No Alcohol intake: current Alcohol intake frequency: holidays/special occasions only Alcohol type: other Patient Tobacco Use Status: Never used Tobacco Use of substances other than those prescribed or required for medical reasons: No Have you been hit, kicked, punched, or otherwise hurt by someone within the past year? If so, by whom?: No Are you DNR?: No Advance Directives: No Advance Directives Information Provided: Yes Advance Directives on File: No Recently lost weight without trying: No Nutrition Risks: No Nutritional Risk Patient : No FDLMP: 08/20/2024 Meds Allergies Allergy/AdvReac Type Severity Reaction Status Date / Time pollen extracts Allergy Intermediate Itchy Eyes Verified 09/08/24 10:29 Home Medications ?Medication ?Instructions ?Recorded ?Confirmed ?Last Taken ?Type fluoxetine 20 mg capsule (Prozac) 80 mg PO DAILY 03/31/24 05/04/24 09/07/24 History hydrochlorothiazide 25 mg tablet 25 mg PO DAILY 03/31/24 05/04/24 09/07/24 History losartan 25 mg tablet 25 mg PO DAILY 03/31/24 05/04/24 09/07/24 History cholecalciferol (vitamin D3) 250 250 mcg PO DAILY 04/08/24 05/04/24 09/07/24 History mcg (10,000 unit) capsule atomoxetine 18 mg capsule 36 mg PO DAILY 09/08/24 09/08/24 09/07/24 History lurasidone 40 mg tablet 40 mg PO DAILY 09/08/24 09/08/24 09/07/24 History trazodone 50 mg tablet 50 mg PO BEDTIME PRN insomnia 09/08/24 09/08/24 Unknown History Exam Airway Mallampati Class: II TM Dist: >3cm Neck ROM: Full Heart: rrrcta Assessment and Plan Assessment Anesthesia Assessment: Anesthesia Plan Discussed Final Anesthetic Review NPO: Yes ASA Class: III Final Preanesthetic Review: No Changes in Pt Med Stat, Meds/Allgs Chart Reviewed, Consent Obtained/Reviewed and Anes Risks/Benef Reviewed Patient Risk: Intermediate Procedure Risk: Low Anesthetic Plan Anesthetic Plan: MAC: Disposition: Standard PACU
[2024-09-08 10:42] VITALS: BP 126/83; PULSE 71; RESP 14; TEMP 36.4; O2SAT 98; BMI 39.5
[2024-09-08 10:42] LABS: UPreg QC Valid YES; Urine Pregnancy NEGATIVE (NEGATIVE)
[2024-09-08] MEDS: Lactated Ringers 1,000 ML 100 ML IVCONT (10:54)
--- NOTE | 2024-09-08 11:37 | MHC.SHP ---
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 Here for luminal evaluation and possible dilation. PMH: Back pain GERD (gastroesophageal reflux disease) Anxiety Depression Obstructive sleep apnea on CPAP Hypertension Morbid obesity Present Medications: see Short Stay Collaborative assessment Allergies: Allergies Allergy/AdvReac Type Severity Reaction Status Date / Time pollen extracts Allergy Intermediate Itchy Eyes Verified 09/08/24 10:29 Review of Systems Review of Systems Comment: Ten point ROS negative Exam Exam Comment: Gen appear: No acute distress HEENT: no icterus Chest: No overt resp distress Abd: soft, nontender, nondistended Psych: Stable affect, answering questions appropriately Neuro: A/Ox3 noted to move all extremities spontaneously Ext: no peripheral edema Plan Diagnosis/Plan: Unchanged I have reviewed the history and physical and performed a pertinent physical examination on my patient. No changes have occurred unless specified. Time Spent With Patient Time: Total time managing care of this patient today ____ minutes.
--- NOTE | 2024-09-08 11:38 | P.OP_ITS ---
Operative Note Operative Note Date of Service: 09/08/24 Narrative: Procedure: Esophagogastroduodenoscopy Endoscopist: Martina Garibay MD Indication: Dysphagia, esophageal web Anesthesia Provider: Lavinia Daniel MD Anesthesia Type: MAC Equipment: [id number] ?? EGD Procedure:?? The procedure, indications, preparation and potential complications were reviewed with the patient, who indicated understanding and gave written informed consent to proceed. A physical exam was performed. The endoscope was introduced through the mouth, and advanced to the second part of duodenum. The mucosa was carefully examined on slow withdrawal of the endoscope. The patient tolerated the procedure well. There were no immediate complications.? ? EGD Findings:? * Esophagus:? 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 Normal mucosa noted in the entire esophagus. The Z line was at 40 cm. * Stomach:? Linear ulcer noted in the antrum at 5 o clock position. Pediatric cold forceps biopsies were taken from the edge of the ulcer for histology. Retroflexion was performed in the cardia. * Duodenum:? Erythema and edema noted in the bulb of the duodenum. Normal mucosa noted in the remaining duodenum. Pediatric cold forceps biopsies were taken from the duodenal bulb and second portion of the duodenum to r/o celiac sprue. Additional intervention: Soft tipped Savary wire was introduced through the biopsy channel of the gastroscope and advanced to the antrum. The gastroscope was then backed out. Savary Floyd bougie was advanced over the guidewire and the esophagus was incrementally dilated from 8 mm to 11 mm. On relook, the web appeared disrupted with scant heme confirming successful dilation. ? ? EGD Impressions:? * Esophageal web (dilation) * Healing gastric ulcer (biopsy) * Bulbar duodenitis (biopsy) ?? Recommendations:?? * Follow biopsy results. Our office will call or send a letter with results within 7-10 days. * Swish and swallow magic mouth wash TID x 2-3 days for discomfort if needed * If H pylori +, patient will be prescribed eradication therapy followed by test of cure. * Avoid NSAIDs. * Repeat EGD for updilation to be booked in a few weeks Above has been reviewed with the patient.
[2024-09-08 12:24] VITALS: BP 110/63; PULSE 89; RESP 12; TEMP 36.4; O2SAT 95
[2024-09-08] MEDS: Mag&Al/Sim/Diphenhyd/Lidocaine 10 ML ORAL.SUSP PO (12:39)
[2024-09-08 12:40] VITALS: BP 140/89; PULSE 71; RESP 16; O2SAT 98
[2024-09-08 12:58] VITALS: BP 134/80; PULSE 65; RESP 16; TEMP 36.3; O2SAT 99
== END 2024-09-08 13:59 | disposition home or self-care (01) ==
PROVIDERS: Nurse Practitioner; PCP Family Medicine; Visit Provider Internal Medicine
PROC: (CPT 43248; principal; 2024-09-08 11:50)
DX: K25.9 Gastric ulcer, unspecified as acute or chronic, without hemorrhage or perforation (principal); K29.80 Duodenitis without bleeding; K31.A0 Gastric intestinal metaplasia, unspecified; Q39.4 Esophageal web; K21.9 Gastro-esophageal reflux disease without esophagitis; I10 Essential (primary) hypertension; E66.01 Morbid (severe) obesity due to excess calories; Z68.43 Body mass index [BMI] 50.0-59.9, adult; G47.33 Obstructive sleep apnea (adult) (pediatric); Z99.89 Dependence on other enabling machines and devices; Z79.899 Other long term (current) drug therapy
CPT/HCPCS: 43248; 43239; 81025; 88305; 88313; 88342; C1769; J1100; J2003; J2250; J2704; J3010

== ENCOUNTER → 2024-09-08 10:08 | Outpatient (BNV) | payer BC, SELFPAY | PROVIDERS: PCP Family Medicine; Visit Provider Internal Medicine | DX: R13.10 Dysphagia, unspecified (principal); Q39.4 Esophageal web; K25.9 Gastric ulcer, unspecified as acute or chronic, without hemorrhage or perforation; K29.80 Duodenitis without bleeding | CPT/HCPCS: 43239; 43248 ==

== ENCOUNTER 2024-10-13 10:42 | Day surgery (SDC) | payer BC, SELFPAY ==
[2024-10-11 14:50] VITALS: BMI 39.5
--- NOTE | 2024-10-12 08:35 | P.CONAN_ITS ---
Documented by User: Melanie Crespo NP 10/12/24 08:35 HPI - Anesthesia Eval Consult details Narrative: 33yo F for ?Upper Endoscopy with Dilitation s/p same 08/2024 with TIVA PMFSH Active Problems Active Problems: All Active Problems Esophageal web (Acute) Vitamin A deficiency (Acute) Back pain (Acute) GERD (gastroesophageal reflux disease) (Acute) Anxiety (Acute) Depression (Acute) Obstructive sleep apnea on CPAP (Acute) Hypertension (Acute) Morbid obesity (Acute) Past Medical History Medical History Back pain GERD (gastroesophageal reflux disease) Anxiety Depression Obstructive sleep apnea on CPAP Hypertension Morbid obesity Family History Family History Paternal Grandmother Colon cancer Maternal Grandmother Breast cancer Paternal Aunt Cervical cancer Paternal Grandfather Mesothelioma Family history of problems with anesthesia: No Surgical History Surgical History History of esophagogastroduodenoscopy (EGD) History of elective Hx of wisdom tooth extraction History of Problems with Anesthesia: No Social History Social History Are you a primary home care and home health aides teacher to a significant other at home: No Do you presently have visiting nurse or other home services: No Alcohol intake: current Alcohol intake frequency: holidays/special occasions only Alcohol type: other Patient Tobacco Use Status: Never used Tobacco Use of substances other than those prescribed or required for medical reasons: No Are you DNR?: No Advance Directives: No Advance Directives Information Provided: Yes Meds Allergies Allergy/AdvReac Type Severity Reaction Status Date / Time pollen extracts Allergy Intermediate Itchy Eyes Verified 10/13/24 10:52 Home Medications ?Medication ?Instructions ?Recorded ?Confirmed ?Last Taken ?Type fluoxetine 20 mg capsule (Prozac) 80 mg PO DAILY 03/31/24 10/13/24 09/07/24 History hydrochlorothiazide 25 mg tablet 25 mg PO DAILY 03/31/24 10/13/24 09/07/24 History losartan 25 mg tablet 25 mg PO DAILY 03/31/24 10/13/24 09/07/24 History cholecalciferol (vitamin D3) 250 250 mcg PO DAILY 04/08/24 10/13/24 09/07/24 History mcg (10,000 unit) capsule atomoxetine 18 mg capsule 36 mg PO DAILY 09/08/24 10/13/24 09/07/24 History lurasidone 40 mg tablet 40 mg PO DAILY 09/08/24 10/13/24 09/07/24 History trazodone 50 mg tablet 75 mg PO BEDTIME PRN insomnia 10/13/24 10/13/24 Unknown History Exam Height,Weight and Vital Signs: Height 5 ft 6 in Weight 111 kg Assessment and Plan Assessment Anesthesia Assessment: Chart Reviewed Final Anesthetic Review Family History of Problems with Anesthesia: No History of Problems with Anesthesia: No Documented by User: Juan Albert MD 10/13/24 12:08 [facility] Past Medical History Medical History Back pain GERD (gastroesophageal reflux disease) Anxiety Depression Obstructive sleep apnea on CPAP Hypertension Morbid obesity Family History Family History Paternal Grandmother Colon cancer Maternal Grandmother Breast cancer Paternal Aunt Cervical cancer Paternal Grandfather Mesothelioma Surgical History Surgical History History of esophagogastroduodenoscopy (EGD) History of elective Hx of wisdom tooth extraction Social History Social History Are you a primary home care and home health aides teacher to a significant other at home: No Do you presently have visiting nurse or other home services: No Alcohol intake: current Alcohol intake frequency: holidays/special occasions only Alcohol type: other Patient Tobacco Use Status: Never used Tobacco Use of substances other than those prescribed or required for medical reasons: No Are you DNR?: No Advance Directives: No Advance Directives Information Provided: Yes Meds Allergies Allergy/AdvReac Type Severity Reaction Status Date / Time pollen extracts Allergy Intermediate Itchy Eyes Verified 10/13/24 10:52 Home Medications ?Medication ?Instructions ?Recorded ?Confirmed ?Last Taken ?Type fluoxetine 20 mg capsule (Prozac) 80 mg PO DAILY 03/31/24 10/13/24 09/07/24 History hydrochlorothiazide 25 mg tablet 25 mg PO DAILY 03/31/24 10/13/24 09/07/24 History losartan 25 mg tablet 25 mg PO DAILY 03/31/24 10/13/24 09/07/24 History cholecalciferol (vitamin D3) 250 250 mcg PO DAILY 04/08/24 10/13/24 09/07/24 History mcg (10,000 unit) capsule atomoxetine 18 mg capsule 36 mg PO DAILY 09/08/24 10/13/24 09/07/24 History lurasidone 40 mg tablet 40 mg PO DAILY 09/08/24 10/13/24 09/07/24 History trazodone 50 mg tablet 75 mg PO BEDTIME PRN insomnia 10/13/24 10/13/24 Unknown History Exam Airway Mallampati Class: II TM Dist: >3cm Neck ROM: Full Assessment and Plan Assessment Anesthesia Assessment: Anesthesia Plan Discussed Final Anesthetic Review NPO: Yes ASA Class: III Final Preanesthetic Review: No Changes in Pt Med Stat, Meds/Allgs Chart Reviewed, Consent Obtained/Reviewed and Anes Risks/Benef Reviewed Patient Risk: Intermediate Procedure Risk: Low Anesthetic Plan Anesthetic Plan: TIVA Disposition: Standard PACU
[2024-10-13 10:52] VITALS: BMI 36.8
--- NOTE | 2024-10-13 10:52 | MHC.SHP ---
Pre-Procedural Eval Section A - 24 Hr Update-Section A only Date of Service: 10/13/24 Section B - Complete if H&P > 30 days Chief Complaint: Esophageal web, dysphagia Details of Present Illness: Reports marked improvement in swallowing after last EGD. PMH: Back pain GERD (gastroesophageal reflux disease) Anxiety Depression Obstructive sleep apnea on CPAP Hypertension Morbid obesity Present Medications: see Short Stay Collaborative assessment Allergies: Allergies Allergy/AdvReac Type Severity Reaction Status Date / Time pollen extracts Allergy Intermediate Itchy Eyes Verified 10/13/24 10:52 Review of Systems Review of Systems Comment: Ten point ROS negative Exam Exam Comment: Gen appear: No acute distress HEENT: no icterus Chest: No overt resp distress Abd: soft, nontender, nondistended Psych: Stable affect, answering questions appropriately Neuro: A/Ox3 noted to move all extremities spontaneously Ext: no peripheral edema Plan Diagnosis/Plan: Unchanged I have reviewed the history and physical and performed a pertinent physical examination on my patient. No changes have occurred unless specified. Time Spent With Patient Time: Total time managing care of this patient today ____ minutes.
[2024-10-13 11:08] LABS: UPreg QC Valid YES; Urine Pregnancy NEGATIVE (NEGATIVE)
[2024-10-13 11:20] VITALS: BP 126/85; PULSE 80; RESP 15; TEMP 36.5; O2SAT 97
[2024-10-13] MEDS: Lactated Ringers 1,000 ML 100 ML IVCONT (11:21)
--- NOTE | 2024-10-13 12:04 | P.OP_ITS ---
Operative Note Operative Note Date of Service: 10/13/24 Narrative: Procedure: Esophagogastroduodenoscopy Endoscopist: Martina Garibay MD Indication: Dysphagia, esophageal web Anesthesia Provider: Dr Juan Albert Anesthesia Type: MAC Equipment: [id number] ?? EGD Procedure:?? The procedure, indications, preparation and potential complications were reviewed with the patient, who indicated understanding and gave written informed consent to proceed. A physical exam was performed. The endoscope was introduced through the mouth, and advanced to the second part of duodenum. The mucosa was carefully examined on slow withdrawal of the endoscope. The patient tolerated the procedure well. There were no immediate complications.? ? EGD Findings:? * Esophagus:? There was a partial web at the level of cricopharyngeus at 16 cm from the incisors. The gastroscope easily traversed past this. Normal mucosa noted in the entire esophagus. The Z line was at 39 cm. * Stomach:? Mild erythema noted in the fundus of the stomach. Biopsies were recently done, therefore not repeated today. Retroflexion was performed in the cardia. * Duodenum:? Normal mucosa noted in the duodenum. Additional intervention: Soft tipped Savary wire was introduced through the biopsy channel of the gastroscope and advanced to the antrum. The gastroscope was then backed out. Savary Floyd bougie was advanced over the guidewire and the esophagus was incrementally dilated from 12.8 mm to 15 mm. On relook, the web was disrupted with superficial tear and scant heme confirming successful dilation. ? ? EGD Impressions:? * Esophageal web (dilation) * Gastritis * Normal duodenum ?? Recommendations:?? * Swish and swallow magic mouth wash TID x 2-3 days for discomfort if needed * Use of omeprazole again reinforced with the pt * Avoid NSAIDs. * Repeat EGD for up-dilation to goal 18 mm be booked in 4-8 weeks Above has been reviewed with the patient.
[2024-10-13 12:34] VITALS: BP 119/76; PULSE 66; RESP 15; TEMP 36.2; O2SAT 98
[2024-10-13] MEDS: Mag&Al/Sim/Diphenhyd/Lidocaine 10 ML ORAL.SUSP PO (12:46)
[2024-10-13 12:49] VITALS: BP 140/88; PULSE 64; RESP 16; O2SAT 99
[2024-10-13 13:02] VITALS: BP 140/88; PULSE 61; RESP 16; TEMP 36.2; O2SAT 99
== END 2024-10-13 13:12 | disposition home or self-care (01) ==
PROVIDERS: Nurse Practitioner; PCP Family Medicine; Visit Provider Internal Medicine
PROC: (CPT 43248; principal; 2024-10-13 13:00)
DX: Q39.4 Esophageal web (principal); K29.70 Gastritis, unspecified, without bleeding; K21.9 Gastro-esophageal reflux disease without esophagitis; R13.10 Dysphagia, unspecified; E66.01 Morbid (severe) obesity due to excess calories; Z68.43 Body mass index [BMI] 50.0-59.9, adult; I10 Essential (primary) hypertension; G47.33 Obstructive sleep apnea (adult) (pediatric); Z99.89 Dependence on other enabling machines and devices; Z79.899 Other long term (current) drug therapy
CPT/HCPCS: 43248; 81025; C1769; J2003; J2704

== ENCOUNTER → 2024-10-13 10:42 | Outpatient (BNV) | payer BC, SELFPAY | PROVIDERS: PCP Family Medicine; Visit Provider Internal Medicine | DX: R13.10 Dysphagia, unspecified (principal); Q39.4 Esophageal web; K29.70 Gastritis, unspecified, without bleeding | CPT/HCPCS: 43248 ==

== ENCOUNTER 2024-10-28 08:10 | Outpatient (AMB) | payer BC, SELFPAY ==
--- OUTSIDE RECORDS SUMMARY | 2024-10-28 08:30 | XMS_ITS | Data Portability ---
Author Organization [facility], DOT Address [address] [place] [address] Assessment No assessment recorded. Plan of Treatment Reminders Order Date Submit Date Provider Last Modified By Organization Details Last Modified Time Details Appointments FOLLOW UP 15 2024 08:30A M Gavin Thomson MD Not available Not available Not available Lab None recorded. Referral None recorded. Procedures None recorded. Surgeries None recorded. Imaging None recorded. Medication Orders Zepbound 2.5 mg/0.5 mL subcutane ous pen injector 2024 025 [facility], [address] [place], [address], 08/30/2024 14:55:27 losartan 25 mg tablet 2023 024 [facility], [address] [place] [address], [address], 02/23/2024 09:15:15 Patient TargetsNo targets recorded. Patient InstructionsNo instructions recorded. Reason for Referral None Reported. Results Created Date Observation Date Name Description Value Unit Range Abnormal Flag Note LastModifiedBy Organization Detail LastModifiedTime 02/02/20 24 02/02/2024 COMPL ETE BLOOD COUNT W/ DIFF white blood count 12.4 K/mm3 4.0-11 .0 high Not Available [facility] [address] [place], [address], 02/02/2024 11:27:43 02/02/20 24 02/02/2024 COMPL ETE BLOOD COUNT W/ DIFF red blood count 4.76 M/uL 4.00-5 .50 normal Not Available [address], [address], 02/02/2024 11:27:43 02/02/20 24 02/02/2024 COMPL ETE BLOOD COUNT W/ DIFF hemoglobin 13.6 gm/dL 12.0-1 6.0 normal Not Available [address], [address], 02/02/2024 11:27:43 02/02/20 24 02/02/2024 COMPL ETE BLOOD COUNT W/ DIFF hematocrit 43.8 % 37.0-4 7.0 normal Not Available [address], [address], 02/02/2024 11:27:43 02/02/20 24 02/02/2024 COMPL ETE BLOOD COUNT W/ DIFF mean corpuscular volume 92.0 fL 80.0-1 00.0 normal Not Available [address], [address], 02/02/2024 11:27:43 02/02/20 24 02/02/2024 COMPL ETE BLOOD COUNT W/ DIFF MCHC 31.1 % 32-37 low Not Available [address], [address], 02/02/2024 11:27:43 02/02/20 24 02/02/2024 COMPL ETE BLOOD COUNT W/ DIFF red cell distribution width 13.6 % 11.5-1 6.0 normal Not Available [address], [address], 02/02/2024 11:27:43 02/02/20 24 02/02/2024 COMPL ETE BLOOD COUNT W/ DIFF platelet count 398 K/uL 140-40 0 normal Not Available [address], [address], 02/02/2024 11:27:43 02/02/20 24 02/02/2024 COMPL ETE BLOOD COUNT W/ DIFF mean platelet volume 10.1 fL 8.6-12 .5 normal Not Available [address], [address], 02/02/2024 11:27:43 02/02/20 24 02/02/2024 COMPL ETE BLOOD COUNT W/ DIFF %nucleated RBC auto 0.0 % 0.0-0. 7 normal Not Available [address], [address], 02/02/2024 11:27:43 02/02/20 24 02/02/2024 COMPL ETE BLOOD COUNT W/ DIFF %neutrophils auto 65.3 % Not Available [address], [address], 02/02/2024 11:27:43 02/02/20 24 02/02/2024 COMPL ETE BLOOD COUNT W/ DIFF %lymphocytes auto 27.6 % Not Available [address], [address], 02/02/2024 11:27:43 02/02/20 24 02/02/2024 COMPL ETE BLOOD COUNT W/ DIFF %monocytes auto 5.1 % Not Available [address], [address], 02/02/2024 11:27:43 02/02/20 24 02/02/2024 COMPL ETE BLOOD COUNT W/ DIFF %eosinophils auto 1.4 % Not Available [address], [address], 02/02/2024 11:27:43 02/02/20 24 02/02/2024 COMPL ETE BLOOD COUNT W/ DIFF %basophils auto 0.3 % Not Available [address], [address], 02/02/2024 11:27:43 02/02/20 24 02/02/2024 COMPL ETE BLOOD COUNT W/ DIFF %immature granulocytes auto 0.3 % Not Available [address], [address], 02/02/2024 11:27:43 02/02/20 24 02/02/2024 COMPL ETE BLOOD COUNT W/ DIFF #neutrophils auto 8.11 K/uL 1.50-7 .50 high Not Available [address], [address], 02/02/2024 11:27:43 02/02/20 24 02/02/2024 COMPL ETE BLOOD COUNT W/ DIFF #lymphocytes auto 3.42 K/uL 1.00-4 .50 normal Not Available [address], [address], 02/02/2024 11:27:43 02/02/20 24 02/02/2024 COMPL ETE BLOOD COUNT W/ DIFF #monocytes auto 0.63 K/uL 0.00-0 .80 normal Not Available [address], [address], 02/02/2024 11:27:43 02/02/20 24 02/02/2024 COMPL ETE BLOOD COUNT W/ DIFF #eosinophils auto 0.17 K/uL 0.00-0 .40 normal Not Available [address], [address], 02/02/2024 11:27:43 02/02/20 24 02/02/2024 COMPL ETE BLOOD COUNT W/ DIFF #basophils auto 0.04 K/uL 0.00-0 .20 normal Not Available [address], [address], 02/02/2024 11:27:43 02/02/20 24 02/02/2024 COMPL ETE BLOOD COUNT W/ DIFF #immature granulocytes auto 0.04 K/uL 0.00-0 .10 normal Not Available [address], [address], 02/02/2024 11:27:43 02/02/20 24 02/02/2024 COMPR EHENS JAMILAH METAB OLIC PANEL sodium 139 mEq/L 133-14 5 normal Not Available [address], [address], 02/02/2024 12:33:35 02/02/20 24 02/02/2024 COMPR EHENS JAMILAH METAB OLIC PANEL potassium 4.5 mEq/L 3.5-5. 1 normal Not Available [address], [address], 02/02/2024 12:33:35 02/02/20 24 02/02/2024 COMPR EHENS JAMILAH METAB OLIC PANEL chloride 104 mEq/L 98-112 normal Pleas e note new refer ence range . Not Available [address], [address], 02/02/2024 12:33:35 02/02/20 24 02/02/2024 COMPR EHENS JAMILAH METAB OLIC PANEL carbon dioxide 27 mEq/L 22-31 normal Not Available [address], [address], 02/02/2024 12:33:35 02/02/20 24 02/02/2024 COMPR EHENS JAMILAH METAB OLIC PANEL anion gap 8 mEq/L 5-15 normal Not Available [address], [address], 02/02/2024 12:33:35 02/02/20 24 02/02/2024 COMPR EHENS JAMILAH METAB OLIC PANEL blood urea nitrogen (BUN) 8 mg/dL 7-19 normal Not Available [address], [address], 02/02/2024 12:33:35 02/02/20 24 02/02/2024 COMPR EHENS JAMILAH METAB OLIC PANEL creatinine 0.84 mg/dL 0.50-1 .02 normal Not Available [address], [address], 02/02/2024 12:33:35 02/02/20 24 02/02/2024 COMPR EHENS JAMILAH METAB OLIC PANEL est.glomerul ar filtration rate > 60 Units : mL/mi n/1.7 3 m2 Estim ated GFR (eGFR ) shoul d not be used for patie nts with acute kidne y injur y or ESRD (crea tinin e shoul d be at stead y state and stabl e to use). eGFR is calcu lated using the Natio nal Kidne y Found ation 2020 CKD-E PI creat inine equat ion, which is now the recom brandon d equat ion to estim ate GFR based on creat inine per lates t KDIGO (Kidn ey Disea se Impro ving Globa l Outco mes) Guide lines . KDIGO recom mends CKD now be class ified based on cause , GFR categ ory, and album inuri a categ ory. GFR categ ories will not be repor anthony by the lab for G1 or G2 (eGFR >60). GFR categ ories shoul d be assig renea as: eGFR 45-59 = G3a (mild ly to moder ately decre ased) , eGFR 30-44 = G3b (mode ratel y to sever berlin decre ased) , eGFR 15-29 G4 (rancho rely decre ased) , eGFR< 15 G5 (kidn ey failu re). Not Available [address], [address], 02/02/2024 12:33:35 02/02/20 24 02/02/2024 COMPR EHENS JAMILAH METAB OLIC PANEL glucose 82 mg/dL 70-100 normal Fasti ng Refer ence Inter norma: 70-10 0mg/d L Non-f astin g Refer ence Inter norma: 70-14 0mg/d L Not Available [address], [address], 02/02/2024 12:33:35 02/02/20 24 02/02/2024 COMPR EHENS JAMILAH METAB OLIC PANEL calcium 9.2 mg/dL 8.4-10 .4 normal Not Available [address], [address], 02/02/2024 12:33:35 02/02/20 24 02/02/2024 COMPR EHENS JAMILAH METAB OLIC PANEL bilirubin total 0.8 mg/dL 0.2-1. 2 normal Not Available [address], [address], 02/02/2024 12:33:35 02/02/20 24 02/02/2024 COMPR EHENS JAMILAH METAB OLIC PANEL aspartate amino transferase 22 IU/L 5-34 normal Not Available [address], [address], 02/02/2024 12:33:35 02/02/20 24 02/02/2024 COMPR EHENS JAMILAH METAB OLIC PANEL alanine aminotransfe rase 26 IU/L 0-55 normal Not Available [address], [address], 02/02/2024 12:33:35 02/02/20 24 02/02/2024 COMPR EHENS JAMILAH METAB OLIC PANEL total protein 7.2 g/dL 6.0-8. 3 normal Not Available [address], [address], 02/02/2024 12:33:35 02/02/20 24 02/02/2024 COMPR EHENS JAMILAH METAB OLIC PANEL albumin 3.3 g/dL 2.8-5. 4 normal Not Available [address], [address], 02/02/2024 12:33:35 02/02/20 24 02/02/2024 COMPR EHENS JAMILAH METAB OLIC PANEL alkaline phosphatase 105 IU/L 40-150 normal Not Available [address], [address], 02/02/2024 12:33:35 02/02/20 24 02/02/2024 LIPID PANEL triglyceride s 77 mg/dL normal Debra l <=150 Debra l 150-1 99 Borde rline High 200-4 99 High >=500 Very High Not Available [address], [address], 02/02/2024 12:33:35 02/02/20 24 02/02/2024 LIPID PANEL cholesterol 168 mg/dL normal Edu able <200 Edu able 200-2 39 Borde rline High >=240 High Not Available [address], [address], 02/02/2024 12:33:35 02/02/20 24 02/02/2024 LIPID PANEL LDL cholesterol calculated 106 mg/dL normal Near Optim al <100 Optim al 100-1 29 Near optim al 130-1 59 Borde rline High 160-1 89 High >=190 Very High Not Available [address], [address], 02/02/2024 12:33:35 02/02/20 24 02/02/2024 LIPID PANEL HDL cholesterol 47 mg/dL 40- Not Available [address], [address], 02/02/2024 12:33:35 02/02/20 24 02/02/2024 THYRO ID STIMU LATIN G HORMO NE thyroid stimulating hormone 1.58 uIU/m L 0.35-4 .94 normal Not Available [address], [address], 02/02/2024 12:33:36 Result Notes None recorded. Problems Name Problem SNOMED Code Status Onset Date Resolution Date Notes Provider Name and Address Organization Details Recorded Time Allergic rhinitis 18715278 Active 2019 Gavin Thomson MD [address] [place] [address], [place], [address], [place] - P[facility]/WIP 0 12:02:22 Obesity 519845457 Active 2022 Gavin Thomson MD [address] [place] [address], [place], [address], [place] [facility] 3 09:03:19 Attention deficit hyperactivity disorder 483820248 Active 2023 Gavin Thomson MD [address] [place] [address], [place], [address], [place] [facility]IP 4 11:08:11 Essential hypertension 70303582 Active 2018 Gavin Thomson MD [address] [place] [address], [facility] [address], [place], [address], [place] - PMA/WIP 9 14:42:20 Depressive disorder 81503150 Active 2018 Gavin Thomson MD [address] [place] [address], [place], [address], [place] [facility]IP 9 14:42:45 Anxiety 54889093 Active 2018 Gavin Thomson MD [address] [place] [address], [place], [address], [place] [facility]IP 9 14:42:52 Vitamin D deficiency 41638147 Active 2018 Gavin Thomson MD [address] [place] [address], [place], [address], [place] [facility]IP 9 14:43:13 Obstructive sleep apnea syndrome 75265297 Active 2018 on CPAP Gavin Thomson MD [address] [place] [address], [place], [address], [place] P[facility]/WIP 9 14:43:42 Notes:Some problems listed i n Document: #[id number] could not be added to this patient's chart. Please review this document and add these problems to the patient's chart manually as needed. Problem Notes None recorded. Medical Equipment None Reported. Allergies No known drug allergies Medications Name Sig Start Date Stop Date Status Note LastModified by Organization Details LastModified Time contrave starter kit Contrave Starter Kit 08/09 completed Not Available Not Available Not Available fluoxetine 40 mg capsule TAKE 2 CAPSULES BY MOUTH ONCE DAILY active Not Available Not Available No t Available amoxicillin 500 mg capsule 08/30 completed Not Available Not Available Not Available medroxyprog esterone 10 mg tablet TAKE 1 TABLET BY MOUTH ONCE DAILY FOR 10 DAYS 08/30 completed Not Available Not Available Not Available trazodone 50 mg tablet TAKE 1 & 1/2 (ONE & ONE-HALF) TABLETS BY MOUTH ONCE DAILY AT NIGHT AT BEDTIME NEEDED FOR SLEEP active Not Available Not Available No t Available methylpheni date 10 mg tablet 08/09 completed Not Available Not Available Not Available methylpheni date 20 mg tablet 08/30 completed Not Available Not Available Not Available dextroamphe tamine-amph etamine 10 mg tablet TAKE 1 & 1/2 (ONE & ONE-HALF) TABLETS BY MOUTH ONCE DAILY NEEDED FOR ADHD 08/09 completed Not Available Not Available Not Available spironolact one 100 mg tablet TAKE 1 TABLET BY MOUTH ONCE DAILY 12/05 completed Not Available Not Available Not Available olanzapine 5 mg tablet 08/09 completed Not Available Not Available Not Available Wellbutrin SR 150 mg tablet, 12 hr sustained-r elease Take 1 tablet every day by oral route. 08/19 completed Not Available Not Available Not Available olanzapine 10 mg tablet 08/09 completed Not Available Not Available Not Available tretinoin 0.05 % topical cream APPLY A THIN FILM TOPICALLY TO AFFECTED AREA ONCE DAILY IN THE EVENING active Not Available Not Available No t Available amoxicillin 500 mg tablet TAKE 1 TABLET BY MOUTH EVERY 8 HOURS FOR 7 DAYS 02/03 completed Not Available Not Available Not Available dexmethylph enidate 10 mg tablet TAKE 1 & 1/2 (ONE & ONE-HALF) TABLETS BY MOUTH TWICE DAILY NEEDED FOR ADHD 08/09 completed Not Available Not Available Not Available bupropion HCl 100 mg tablet 02/03 completed Not Available Not Available Not Available propranolol 10 mg tablet active Not Available Not Available Not Available fluoxetine 20 mg tablet TAKE 2 & 1/2 (TWO & ONE-HALF) TABLETS BY MOUTH AT BEDTIME TOTAL DOSE 50 MG 08/09 completed Not Available Not Available Not Available losartan 25 mg tablet TAKE 1 TABLET BY MOUTH ONCE DAILY active Not Available Not Available No t Available bupropion HCl 75 mg tablet TAKE 1 TABLET BY MOUTH TWICE DAILY 02/03 completed Not Available Not Available Not Available hydrochloro thiazide 25 mg tablet TAKE 1 TABLET BY MOUTH ONCE DAILY active Not Available Not Available No t Available Prozac 10 mg tablet Take 40 mg every day by oral route. 08/30 completed Not Available Not Available Not Available ondansetron 4 mg disintegrat ing tablet DISSOLVE 1 TABLET IN MOUTH EVERY 8 HOURS NEEDED FOR NAUSEA AND VOMITING 08/30 completed Not Available Not Available Not Available fluoxetine 20 mg capsule 08/09 completed Not Available Not Available Not Available spironolact one 50 mg tablet TAKE 1 TABLET BY MOUTH TWICE DAILY 12/05 completed Not Available Not Available Not Available atomoxetine 18 mg capsule TAKE 1 CAPSULE BY MOUTH ONCE DAILY active Not Available Not Available No t Available atomoxetine 60 mg capsule TAKE 1 CAPSULE BY MOUTH ONCE DAILY active Not Available Not Available No t Available lisdexamfet amine 30 mg capsule TAKE 1 CAPSULE BY MOUTH ONCE DAILY 08/30 completed Not Available Not Available Not Available lurasidone 40 mg tablet TAKE 1 TABLET BY MOUTH ONCE DAILY TAKE WITH [address] active Not Available Not Available No t Available Contrave 8 mg-90 mg tablet,exte nded release Take 1 tablet by mouth daily for 1 week then 1 tablet by mouth twice daily for 1 week then 2 tablets by mouth every morning and 1 tablet every evening 08/09 completed Not Available Not Available Not Available methylpheni date 08/09 completed Not Available Not Available Not Available Zepbound 2.5 mg/0.5 mL subcutaneou s pen injector Inject 2.5 mg every week by subcutane ous route for 28 days. active Not Available Not Available No t Available Vitals Date Recorded Body weight Oxygen saturation Oxygen saturation in Arterial blood by Pulse oximetry Heart rate Systolic blood pressure Diastolic blood pressure Provider Name and Address Organization Details Last Updated DateTime 4 909822. 52 g 97 % 97 % 102 /min 150 mm[Hg] 100 mm[Hg] Celeste Ojeda [facility] - PMA/WIP 4 10:32:20 Date Recorded Body weight Oxygen saturation Oxygen saturation in Arterial blood by Pulse oximetry Heart rate Systolic blood pressure Diastolic blood pressure Provider Name and Address Organization Details Last Updated DateTime 4 042238. 01 g 98 % 98 % 87 /min 150 mm[Hg] 102 mm[Hg] Celeste Ojeda [facility] [place] - PMA/WIP 4 08:54:31 Date Recorded Body weight Oxygen saturation Oxygen saturation in Arterial blood by Pulse oximetry Heart rate Systolic blood pressure Diastolic blood pressure Provider Name and Address Organization Details Last Updated DateTime 4 599783. 11 g 98 % 98 % 73 /min 146 mm[Hg] 92 mm[Hg] Celeste Ojeda [facility]/WIP 4 10:09:27 Date Recorded Systolic blood pressure Diastolic blood pressure Provider Name and Address Organization Details Last Updated DateTime 03/24/2024 132 mm[Hg] 80 mm[Hg] Gavin Thomson MD [address] [place] [address], [address], [place], [address], [facility] PMA/WIP 03/24/2024 10:28:47 Date Recorded Body weight Oxygen saturation Oxygen saturation in Arterial blood by Pulse oximetry Heart rate Systolic blood pressure Diastolic blood pressure Provider Name and Address Organization Details Last Updated DateTime 5 159406. 2 g 98 % 98 % 96 /min 120 mm[Hg] 80 mm[Hg] Celeste Ojeda [facility]/WIP 5 14:47:36 Date Recorded Body weight Oxygen saturation Oxygen saturation in Arterial blood by Pulse oximetry Heart rate Systolic blood pressure Diastolic blood pressure Provider Name and Address Organization Details Last Updated DateTime 5 517687. 05 g 95 % 95 % 82 /min 130 mm[Hg] 80 mm[Hg] [facility] 14:36:13 Social History Question Answer Notes LastModified by Organizat ion Details LastModified Time Tobacco Smoking Status Never Smoker Not Available [facility] 04/26/2020 03:13:01 What Is Your Level Of Alcohol Consumption? None [email or web address] Information not available 12/05/2022 What Was The Date Of Your Most Recent Tobacco Screening? 01/18/2019 [id number] Information not available 04/26/2020 Sex: Female Functional Status None recorded. Mental Status None recorded. Family History Relationship Description Onset Age of this Age Resolved Age Notes LastModified by Organization Details LastModified Time Father Arthritis [email or web address] Not availabl e 01/18/2019 14:44:14 Mother Lupus erythematosu s [email or web address] Not available 2018 14:44:38 Medical History No medical history recorded. Gynecological HistoryNo gynecological history recorded. Obstetrics History GPAL:G 0 P 0 0 0 0 Immunizations Vaccine Type Date Status Note Provider Nam e and Address Organization Details Recorded Time COVID-19, mRNA, LNP-S, PF, 100 mcg/0.5mL dose or 50 mcg/0.25mL dose 2 completed Gavin Thmoson MD [address] [place] [address], [address], [place] - [facility]/WIP 12/05/2022 08:17:49 COVID-19, mRNA, LNP-S, PF, 30 mcg/0.3 mL dose 1 completed Gavin Thomson MD [address] [place] [address], [address], [place] - [facility]/WIP 12/05/2022 08:17:49 COVID-19, mRNA, LNP-S, PF, 30 mcg/0.3 mL dose 1 completed Gavin Thomson MD [address] [place] [address], [place], [address], [place] - [facility]/WIP 12/05/2022 08:17:49 Influenza, split virus, quadrivalent, preservative 9 completed Elvia vásquez, [place] - PMA/WIP 05/30/2019 09:12:53 Past Encounters Encounter ID Performer Location Encounter Start Date Encounter Closed Date Diagnosis/Indication Diagnosis SNOMED-CT Code Diagnosis ICD10 Code Diagnosis Note [id number] MD Evelia Kochbelkys [place] [address] [place] [address] 01/18/2019 14:34:53 01/19/2019 08:15:20 Body mass index 30+ - obesity 796594085 Z68.42 diet reviewed; discussed weight loss sugery Essential hypertension 89169306 I10 hctz, diet Obstructiv e sleep apnea syndrome 37333131 G47.33 CPAP [id number] MD Sola Koch [address] [address] [place] [address] 05/30/2019 08:47:16 05/31/2019 07:30:50 Obstructive sleep apnea syndrome 54777512 G47.33 CPAP Depressive disorder 3548 9007 F32.9 f/u psych; fluoxetine Anxiety 26017488 F41.9 f/u psych; fluoxetine Essential hypertension 44948964 I10 hctz; low salt Vitamin D deficiency 347 [address]5915 E55.9 check level [id number] Gavin Thomson MD [facility] [place] [address] [place] [address] 11/24/2019 10:13:22 11/24/2019 12:59:09 Depressive disorder 48231838 F32.9 f/u psych; fluoxetine Anxiety 52228715 F41.9 f/u psych; fluoxetine Obstructiv e sleep apnea syndrome 39243030 G47.33 CPAP Essential hypertension 49058472 I10 hctz; low salt Body mass index 30+ - obesity 038686566 Z68.42 diet reviewed; discussed weight loss sugery Exposure t o SARS-CoV-2 371218689 Z20.828 [id number] Gavin Thomson MD [address] [address] 04/10/2020 07:58:12 04/11/2020 14:33:04 Obstructive sleep apnea syndrome 63701968 G47.33 CPAP Anxiety 68174018 F41.9 f/u psych; fluoxetine Depressive disorder 8 9007 F32.9 f/u psych; fluoxetine ; now with wellbutrin Essential hypertension 37043237 I10 hctz; low salt; check labs; Vitamin D deficiency 347 62352 E55.9 check level Body mass index 30+ - obesity 851847024 Z68.42 diet reviewed; discussed weight loss surgery Exposure t o SARS-CoV-2 563863169 Z20.828 [id number] Gavin Thomson MD [facility] [place] [address] [place] [address] 10/04/2020 07:53:36 10/04/2020 10:08:31 Obstructive sleep apnea syndrome 60945749 G47.33 CPAP Vitamin D deficiency 347 89691 E55.9 check level Anxiety 51359503 F41.9 f/u psych; fluoxetine Essential hypertension 00650851 I10 hctz; low salt; check labs; Depressive disorder 3548 9007 F32.9 f/u psych; fluoxetine ; now with wellbutrin Body mass index 30+ - obesity 847036367 Z68.42 diet reviewed; discussed weight loss surgery [id number] Gavin Thomson MD [address] [address] 08/19/2021 09:03:00 08/19/2021 10:18:49 Obstructive sleep apnea syndrome 61304482 G47.33 CPAP Vitamin D deficiency 347 54758 E55.9 check level Anxiety 09236777 F41.9 f/u psych; fluoxetine Depressive disorder 3548 9007 F32.9 f/u psych; fluoxetine ; now with wellbutrin Essential hypertension 77402798 I10 hctz; low salt; check labs; Allergic rhinitis 656806 04 J30.9 Impaired f asting glycemia 846841633 R73.01 [id number] Gavin Thomson MD [address] [address] 12/05/2022 08:11:00 12/05/2022 09:07:09 Obstructive sleep apnea syndrome 86732900 G47.33 CPAP Anxiety 42276338 F41.9 f/u psych; fluoxetine Depressive disorder 3548 9007 F32.9 f/u psych; fluoxetine ; now with wellbutrin Essential hypertension 23006246 I10 hctz; low salt; check labs; Vitamin D deficiency 347 47791 E55.9 check level History an d physical examination, school 81149623 Z02.0 needs he;p B SABneeds viral titres orderednee ds IGRAobes Obesity 576633802 E66.9 diet discussed [id number] Gavin Thomson MD [address] [address] 02/04/2024 10:28:43 02/04/2024 12:15:32 Obesity 807974948 E66.9 diet discussed Obstructiv e sleep apnea syndrome 14306470 G47.33 CPAP Allergic rhinitis 061551 04 J30.9 Anxiety 78434803 F41.9 f/u psych; fluoxetine Essential hypertension 25124327 I10 hctz; low salt; check labs;bp checks on methylphen idate call with results Depressive disorder 3548 9007 F32.9 f/u psych; fluoxetine ; Attention deficit hyperactivity disorder 755491157 F90.9 continue psych therapy [id number] [facility] [address] [place] [address] 02/23/2024 08:52:23 02/23/2024 09:19:34 Attention deficit hyperactivity disorder 397703674 F90.9 continue psych therapy Obstructiv e sleep apnea syndrome 82020052 G47.33 CPAP Depressive disorder 3548 9007 F32.9 f/u psych; fluoxetine ; Essential hypertension 74522200 I10 add losartan 25 mgreduce to 12.5 mg prior: hctz; low salt; check labs;bp checks on methylphen idate call with results [id number] MD Sola Koch [address] [address] [place] [address] 03/24/2024 10:05:45 03/24/2024 10:30:54 Attention deficit hyperactivity disorder 207251083 F90.9 continue psych therapy Obesity 902856922 E66.9 diet discussed Obstructiv e sleep apnea syndrome 31495636 G47.33 CPAP Anxiety 77986003 F41.9 f/u psych; fluoxetine Essential hypertension 18745611 I10 add losartan 25 mgcontinue hctz at 25 mg prior: hctz; low salt; check labs;bp checks on methylphen idate call with results [id number] MD Sola Koch [address] [address] [place] [address] 08/09/2024 14:44:59 08/11/2024 08:04:12 Attention deficit hyperactivity disorder 437825658 F90.9 continue psych therapy Obesity 187484830 E66.9 diet discussed Obstructiv e sleep apnea syndrome 78204610 G47.33 CPAP Depressive disorder 3548 9007 F32.9 f/u psych; fluoxetine ; Essential hypertension 20267721 I10 add losartan 25 mgcontinue hctz at 25 mg prior: hctz; low salt; check labs;bp checks on methylphen idate call with results [id number] MD Sola Koch [address] [place] [address] 08/30/2024 14:16:44 09/01/2024 13:10:38 Attention deficit hyperactivity disorder 009275632 F90.9 continue psych therapy Obesity 463938864 E66.9 diet discussed Obstructiv e sleep apnea syndrome 94634548 G47.33 CPAP Anxiety [id number] F41.9 f/u psych; fluoxetine Depressive disorder 3548 9007 F32.9 f/u psych; fluoxetine ; Essential hypertension [id number] I10 add losartan 25 mgcontinue hctz at 25 mg prior: hctz; low salt; check labs;bp checks on methylphen idate call with results Health Concerns Section Related Observation LastModified by Organization Detai ls LastModified Time None Recorded Concern Status LastModified by Organization Details LastModified Time None Recorded Advance Directives Directive None Recorded Payers Encounter Date Sequence Insurance Name Policy Number Policy Grewal Covered Member ID Grewal Member ID Guarantor Name 02/04/2024 1 [place] [id number] Mannie Mayo Beron [id number] Beckie Edouard 02/23/2024 1 [place] [id number] Mannie V Beron [id number] Beckie Edouard 03/24/2024 1 [place] [id number] Mannie V Beron [id number] Beckie Edouard 08/09/2024 1 [place] [id number] Mannie V Beron [id number] Beckie Edouard 08/30/2024 1 [place] [id number] Mannie V Beron [id number] Beckie Edouard 08/30/2024 2 [place] [facility] ([facility] [place] [id number] Beckie Edouard [id number] Beckie Edouard Notes Date Note Type Note Provider Name and Address Organization Details Recorded Time 02/04/2024 text/html doing well;no pr ob with meds;now on prozac 40 mg and 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 [facility];virtual psychstill on HCTZbp 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 128/70sometimes left flank pain with standing for a long time Gavin Thomson MD [address] [place] [address], [place] [address], [place], [address], [place] P[place]/W[place] 02/04/2024 11:09:16 02/23/2024 text/html was doing well; but bp has been up;140's /90used to be lower;stopped taking 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;mood is better on lexapro;on hctz 25; Gavin Thomson MD [address] [place] [address], [place], [address], [place] 02/23/2024 09:16:00 03/24/2024 text/html doing well; no p razia with meds;on losartan 25 mg hctz 25 mgbp at home 125/72now on zyprexa 7.5fluoxetine 60 mg Gavin Thomson MD [address] [place] [address], [place], [address], [place] 03/24/2024 10:29:10 08/09/2024 text/html doing ok2 pets d ied this month;tried concerta but choked on tabletsaw gi and had endoscopy for esophageal webbiopsy will have dilation done;had LEEP procedure done;start strattera tomorrow Gavin Thomson MD [address] [place] [address], [place], [address], [place]/WIP 08/09/2024 15:18:49 08/30/2024 text/html wanting to lose weighthas been prescribed zepbound before but too expensivenow has new insuranceis considering bariatric surgeryhas lost 76 lbs through diet and exercise but weight loss has stopped Gavin Thomson MD [address] [place] [address], [facility], [place], [address], [place] 09/01/2024 13:06:39 OBGyn Episode No OBEpisode recorded.
--- NOTE | 2024-10-28 08:33 | A.OFFVIS_ITS ---
VS Expanded 10/28/24 08:43 Height 5 ft 6 in Weight 224 lb 9 oz BMI 36.2 Body Fat % 452 Body Fat Mass 101.6 Fat Free Mass 123.1 Visceral Fat Rating 17 Body Water % 37.5 Body Water Mass 84.3 Basal Metabolic Rate/Score 1,762 Intake Visit Reasons: TV Pre Op LSG 11/10/24 Allergies pollen extracts Allergy (Intermediate, Verified 10/28/24 08:33) Itchy Eyes Medication List - Last Reconciled 10/28/24 by Ralph Pinon MD atomoxetine 60 mg PO DAILY cholecalciferol (vitamin D3) 250 mcg PO DAILY fluoxetine (Prozac) 80 mg PO BEDTIME hydrochlorothiazide 12.5 mg PO DAILY losartan 25 mg PO DAILY lurasidone 40 mg PO BEDTIME omeprazole 20 mg PO BID 90 days ondansetron 4 mg PO Q12H pantoprazole 40 mg PO DAILY polyethylene glycol 3350 17 grams PO DAILY propranolol 10 mg PO TID PRN sucralfate 10 mL PO BID trazodone 75 mg PO BEDTIME PRN HPI HPI TV Pre Op LSG 11/10/24: Details: Start time: 8.23am, End time: 8.53am ?I spent 25 minutes speaking with the patient on the phone plus an additional 5 minutes reviewing and updating records for a total of 30 minutes HPI Comments Details: Overall weight loss:98.1lbs, or 30.4% TBWL Is doing 2 30gr Atkins Plus shakes and 3 16gr Atkins shakes per day Exercise: Gym daily doing treadmill for 1000 calories PFS Medical History (Updated 10/28/24 @ 08:39 by Ralph Pinon MD) Gastritis Bipolar 1 disorder Kidney stone Peptic ulcer Back pain GERD (gastroesophageal reflux disease) Anxiety Depression Obstructive sleep apnea on CPAP Hypertension Morbid obesity Surgical History (Updated 10/27/24 @ 12:14 by Deena Orta RN) History of esophagogastroduodenoscopy (EGD) History of elective Hx of wisdom tooth extraction Family History Paternal Grandmother Colon cancer Maternal Grandmother Breast cancer Paternal Aunt Cervical cancer Paternal Grandfather Mesothelioma Social History Are you a primary childcare worker to a significant other at home: No Do you presently have visiting nurse or other home services: No Alcohol intake: current Alcohol intake frequency: holidays/special occasions only Alcohol type: other Patient Tobacco Use Status: Never used Tobacco Telehealth Telehealth Telehealth Platform: Telephone Location of provider rendering services: practice address Location of patient: address on file Patient Identification confirmed using: Name, : Yes Telehealth method: voice only Patient verbally consented to treatment: Yes Patient verbally consented to billing insurance company: Yes Patient informed of any privacy concerns related to visit: Yes Minutes spent on Phone/Video with Pt.: 30 Assessment & Plan Assessment & Plan (1) Obesity: Code(s): E66.9 - Obesity, unspecified Category: Medical Qualifiers: Obesity type: due to excess calories Obesity classification: adult class 2 (BMI 35 - 39.9) Serious obesity comorbidity presence: with serious comorbidity Body mass index: BMI 36.0-36.9 Qualified Code(s): E66.812 - Obesity, class 2; E66.01 - Morbid (severe) obesity due to excess calories; Z68.36 - Body mass index [BMI] 36.0-36.9, adult Plan: 1. Plan for lap sleeve gastrectomy including upper GI endoscopy. All tests has been completed and reviewed and the patient is cleared for the surgery. ?If diaphragmatic or ventral hernias are present at time of surgery, these will be repaired laparoscopically as well. Risks and complications were discussed in detail including possible conversion to an open procedure, anastomotic leak, bleeding requiring transfusion, small bowel obstruction, , DVT and pulmonary embolism, cardiac, or pulmonary complications, as half-way complications such as anastomotic ulcer, insufficient weight loss and vitamin deficiencies. I emphasized the importance of close follow-up, adherence to instructions and good communication. So far she has proven to be an excellent communicator and very compliant with all our directions accomplishing a great weight loss. I believe that she is an excellent candidate and she is ready. 2. Preop prescriptions were provided and explained the purpose of each one. Need to be purchased preop. Start Pantoprazole now as you get it from the pharmacy, 1 pill per day. Sucralfate and Zofran are for after surgery as needed. 3. Bowel prep: please do 7 packets ?of Miralax mixing each one with a an 8oz glass of water, crystal light, gatorade zero, or propel ?on 11/07/24 and the same amount on 11/09/24. The Miralax you begin with one packet at a time in 8oz water or crystal light, gatorade zero, or propel ?as early in the day as you can and you do them back to back until you finish them. Continue the protein shakes during ?the bowel prep. 4. Needs to purchase 1oz medicine cups . 5. Needs to purchase Children's liquid Tylenol for postop pain control. 6. She needs to stop the Propranolol as of today 10/28/24. Avoid aspirin, motrin, Advil, Aleve, Meloxicam, Excedrin, Ibuprofen, Naproxyn. Tylenol is OK. 7. She needs to purchase the Celebrate multivitamins from the hospital's gift shop, chewable or pills whatever you prefer. 8. Will do basic preop blood work-up any day between Thursday10/31/24 and Thursday11/04/24 fasting for 12 hours and is scheduled to see the Anesthesiologist prior to the day of surgery. 9. Importance of adherence to postop folllow-up and recommendations was underscored and she understands that. 10. Continue to avoid food and bars and continue with 4 Atkins premade protein shakes at 6am-8am, 9am-11am, 12pm-2pm, and 3pm-5pm and one more Atkins PLUS premade protein shake at 6pm-8pm 11. No soups, broths or V8 12. The patient's?medical?history has been reviewed and they are considered low risk for post op DVT and therefore DVT prophylaxis is not considered necessary. Travel after surgery was reviewed. The patient has not disclosed any travel plans during the first 30 days after surgery and they have been advised that within the first 30 days after surgery any bus, plane, train or car travel over 2 hours in duration is contraindicated due to the possibility of developing blood clots from immobility. Any travel, needs to include periods of ambulation of 10 minutes in duration every 2 hours.? Patient was instructed to discuss any plans for travel during this period with their bariatric surgeon.? 13. Use your CPAP daily and bring it to the hospital with your mask 14. As of tomorrow, please check your blood pressure daily in the morning. If your blood pressure is: Below 120/70: do not take the Losartan or Hydrochlorothiazide 121/71 to 135/85: take HALF Losartan and HALF pill Hydrochlorothiazide Over 136/86: take the whole Losartan and the whole pill Hydrochlorothiazide 15. Please take at the day of surgery the following medications: ONLY the Losartan if the blood pressure that day is high enough to justify it based on the parameters at the previous bullet point. 16. Stop any control pills and don't use them for one month after surgery 17. Absolutely no smoking or vaping, or marijuana until the surgery and for at least the first 4 weeks. Only nicotine patches are allowed. 18. Send me weight measurements on Thursday11/04/24 and then on 11/10/24, the day of surgery before you go to the hospital. 19. Avoid any steroids by mouth for any reason. Let me know if someone prescribes them to you 20. These instructions supersede anything else you read in the handbook, anything you watched in videos or classes or you were told by any other provider. If there is any conflict, you follow the above instructions and nothing else. Orders: Orders Comprehensive Met. Panel Today E66.9 - Obesity, unspecified, I10 - Essential (primary) hypertension, Z68.36 - Body mass index [BMI] 36.0-36.9, adult Type and Screen Today E66.9 - Obesity, unspecified, I10 - Essential (primary) hypertension, Z68.36 - Body mass index [BMI] 36.0-36.9, adult Lipid Panel Today E66.9 - Obesity, unspecified, I10 - Essential (primary) hypertension, Z68.36 - Body mass index [BMI] 36.0-36.9, adult TSH reflex Free T4 Today E66.9 - Obesity, unspecified, I10 - Essential (primary) hypertension, Z68.36 - Body mass index [BMI] 36.0-36.9, adult Prothrombin Time INR Today E66.9 - Obesity, unspecified, I10 - Essential (primary) hypertension, Z68.36 - Body mass index [BMI] 36.0-36.9, adult Partial Thromboplastin Time Today E66.9 - Obesity, unspecified, I10 - Essential (primary) hypertension, Z68.36 - Body mass index [BMI] 36.0-36.9, adult C Reactive Protein Today E66.9 - Obesity, unspecified, I10 - Essential (primary) hypertension, Z68.36 - Body mass index [BMI] 36.0-36.9, adult Hemoglobin A1c Today E66.9 - Obesity, unspecified, I10 - Essential (primary) hypertension, Z68.36 - Body mass index [BMI] 36.0-36.9, adult Complete Blood Count Auto Diff Today E66.9 - Obesity, unspecified, I10 - Essential (primary) hypertension, Z68.36 - Body mass index [BMI] 36.0-36.9, adult Insulin Today E66.9 - Obesity, unspecified, I10 - Essential (primary) hypertension, Z68.36 - Body mass index [BMI] 36.0-36.9, adult Medications: New pantoprazole 40 mg PO DAILY 90 tabs 0RF K21.9 - Gastro-esophageal reflux disease without esophagitis sucralfate 10 mL PO BID 600 mL 2RF K21.9 - Gastro-esophageal reflux disease without esophagitis ondansetron Only take one every 12 hours as needed if you have nausea 4 mg PO Q12H 20 tabs 0RF nausea and vomiting R11.0 - Nausea polyethylene glycol 3350 Mix each measuring cup with 8oz of water, Crystal light, or Gatorade zero, or Propel and do 7 measuring cups on 11/08/24 and another 7 measuring cups on 11/09/24 17 grams PO DAILY 238 grams 0RF Z01.818 - Encounter for other preprocedural examination
[2024-10-28 08:43] VITALS: BMI 36.2
== END 2024-10-28 08:54 | disposition home or self-care (01) ==
LOC: HO.HBS 08:10
PROVIDERS: PCP Family Medicine; Visit Provider Surgery
DX: E66.01 Morbid (severe) obesity due to excess calories (principal); E66.812 Obesity, class 2; Z68.36 Body mass index [BMI] 36.0-36.9, adult
CPT/HCPCS: 99499

== ENCOUNTER → 2024-10-28 08:10 | Outpatient (BNVA) | payer BC, SELFPAY | PROVIDERS: PCP Family Medicine; Visit Provider Surgery ==

== ENCOUNTER 2024-11-10 07:03 | Inpatient (IN) | payer BC, SELFPAY ==
[2024-10-27 12:20] VITALS: BMI 36.3
[2024-11-02 08:59] LABS: MANUAL DIFF FLAG NO
[2024-11-02 09:45] LABS: Basophils Percent Auto 0.3 % (0-2); Eosinophils Absolute Auto 0.1 X10*3/uL (0.0-0.4); Eosinophils Percent Auto 1.5 % (0-4); Hematocrit 40.8 % (37.0-47.0); Hemoglobin 13.3 g/dl (12.0-16.0); Imm Gran Abs Auto 0.02 X10*3/uL (0.00-0.03); Imm Gran Pct Auto 0.3 % (0.0-0.4); Lymphocytes Absolute Auto 2.2 X10*3/uL (1.2-4.9); Lymphocytes Percent Auto 30.3 % (20-40); Mean Corpuscular HGB Conc 32.6 g/dl (31.0-35.0); Mean Corpuscular Hemoglobin 29.8 pg (27.0-33.0); Mean Corpuscular Volume 91.5 fL (80.0-98.0); Mean Platelet Volume 11.1 fL (9.4-12.3); Monocytes Absolute Auto 0.4 X10*3/uL (0.1-1.2); Monocytes Percent Auto 5.3 % (2-11); Neutrophils Absolute Auto 4.5 x10*3/uL (2.0-8.3); Neutrophils Percent Auto 62.3 % (45-73); Platelet Count 285 X10*3/uL (160-400); Red Blood Count 4.46 X10*6/uL (4.20-5.50); Red Cell Distribution Width 14.4 % (11.0-16.0); White Blood Count 7.1 X10*3/uL (4.8-10.8)
[2024-11-02 09:53] LABS: INTERNATIONAL NORM RATIO 1.1 (0.9-1.1); Prothrombin Time 12.9 SEC (10.9-12.4)
[2024-11-02 10:26] LABS: Anion Gap 14 (12-20)
[2024-11-02 10:32] LABS: Alanine Aminotransferase 14 U/L (0-31); Aspartate Amino Transferase 17 U/L (5-31); Bilirubin Total 0.7 mg/dL (0.0-1.0); Blood Urea Nitrogen 12 mg/dL (9-16); C Reactive Protein 0.62 mg/dL (< or = 0.50); Calcium 9.5 mg/dL (8.4-10.2); Carbon Dioxide 23 mmol/L (22-29); Chloride 106 mmol/L (96-108); Cholesterol 153 mg/dL (<200); Creatinine Clr Calc Pharmacy 146.2; Estimated Glomerular Filt Rate > 60; Glucose Random 73 mg/dL (60-115); HDL Cholesterol 42 mg/dL (>40); LDL Cholesterol Calculated 100 mg/dL (<100); Potassium 3.8 mmol/L (3.3-5.1); Sodium 139 mmol/L (135-145); Total Protein 7.4 g/dL (6.5-8.0); Triglycerides 59 mg/dL (<150)
[2024-11-02 10:49] LABS: Alkaline Phosphatase 81 U/L (39-117)
[2024-11-02 10:51] LABS: Insulin 4 uU/mL (2-29); TSH reflex Free T4 0.97 uIU/mL (0.32-4.0)
[2024-11-02 11:02] LABS: Estimated Average Glucose 97 mg/dL; Hemoglobin A1C 109.7811 umol/L; Total Hemoglobin (HGBA1C) 3546.3048 umol/L
--- NOTE | 2024-11-08 13:56 | P.CONAN_ITS ---
Documented by User: Melanie Crespo NP 11/08/24 13:58 HPI - Anesthesia Eval Consult details Narrative: 33yo F for Gastrectomy Sleeve - EGD, possible diaphragmatic hernia, possible ventral hernia, possible open PMFSH Active Problems Active Problems: All Active Problems BMI 36.0-36.9,adult (Acute) Obesity (Acute) Esophageal web (Acute) Vitamin A deficiency (Acute) Back pain (Acute) GERD (gastroesophageal reflux disease) (Acute) Anxiety (Acute) Depression (Acute) Obstructive sleep apnea on CPAP (Acute) Hypertension (Acute) Morbid obesity (Acute) Past Medical History Medical History Gastritis Bipolar 1 disorder Kidney stone Peptic ulcer Back pain GERD (gastroesophageal reflux disease) Anxiety Depression Obstructive sleep apnea on CPAP Hypertension Morbid obesity Family History Family History Paternal Grandmother Colon cancer Maternal Grandmother Breast cancer Paternal Aunt Cervical cancer Paternal Grandfather Mesothelioma Family history of problems with anesthesia: No Surgical History Surgical History History of esophagogastroduodenoscopy (EGD) History of elective Hx of wisdom tooth extraction History of Problems with Anesthesia: No Social History Social History Are you a primary property caretaker to a significant other at home: No Do you presently have visiting nurse or other home services: No Alcohol intake: current Alcohol intake frequency: holidays/special occasions only Alcohol type: other Patient Tobacco Use Status: Never used Tobacco Use of substances other than those prescribed or required for medical reasons: No Have you been hit, kicked, punched, or otherwise hurt by someone within the past year? If so, by whom?: No Are you DNR?: No Advance Directives: No Advance Directives Information Provided: Yes Advance Directives on File: No Patient : No : No Poor oral hygiene: Yes Meds Allergies Allergy/AdvReac Type Severity Reaction Status Date / Time pollen extracts Allergy Intermediate Itchy Eyes Verified 11/10/24 06:15 Home Medications ?Medication ?Instructions ?Recorded ?Confirmed ?Last Taken ?Type fluoxetine 20 mg capsule (Prozac) 80 mg PO BEDTIME 03/31/24 10/28/24 11/09/24 History hydrochlorothiazide 25 mg tablet 12.5 mg PO DAILY 03/31/24 10/28/24 11/08/24 History losartan 25 mg tablet 25 mg PO DAILY 03/31/24 10/28/24 11/08/24 History cholecalciferol (vitamin D3) 250 250 mcg PO DAILY 04/08/24 10/28/24 11/09/24 History mcg (10,000 unit) capsule lurasidone 40 mg tablet 40 mg PO BEDTIME 09/08/24 10/28/24 11/09/24 History trazodone 50 mg tablet 75 mg PO BEDTIME PRN insomnia 10/13/24 10/28/24 11/09/24 History atomoxetine 60 mg capsule 60 mg PO DAILY 10/27/24 10/28/24 11/09/24 History propranolol 10 mg tablet 10 mg PO TID PRN Anxiety 10/27/24 10/28/24 Unknown History Exam Height,Weight and Vital Signs: Height 5 ft 6 in Weight 102.058 kg Pertinent Lab Results Pertinent Lab Results: Laboratory Tests 11/02/24 11/02/24 08:55 08:57 WBC 7.1 RBC 4.46 Hgb 13.3 Hct 40.8 MCV 91.5 MCH 29.8 MCHC 32.6 RDW 14.4 Plt Count 285 MPV 11.1 Immature Gran % (Auto) 0.3 Neut % (Auto) 62.3 Lymph % (Auto) 30.3 [place] % (Auto) 5.3 Eos % (Auto) 1.5 Baso % (Auto) 0.3 Lymph # (Auto) 2.2 [place] # (Auto) 0.4 Eos # (Auto) 0.1 Baso # (Auto) 0.0 Abs Immat Gran (auto) 0.02 Absolute Neuts (auto) 4.5 Absolute Nucleated RBC 0.000 Nucleated RBC % (auto) 0.0 PT 12.9 H INR 1.1 APTT 36.0 Sodium 139 Potassium 3.8 Chloride 106 Carbon Dioxide 23 Anion Gap 14 BUN 12 Creatinine 0.66 Estim Creat Clear Calc 146.2 Estimated GFR > 60 Random Glucose 73 Estimat Average Glucose 97 Hemoglobin A1c % 5.0 Insulin Level 4 Calcium 9.5 Total Bilirubin 0.7 AST 17 ALT 14 Alkaline Phosphatase 81 C-Reactive Protein 0.62 H Total Protein 7.4 Albumin 4.0 Triglycerides 59 Cholesterol 153 LDL Cholesterol, Calc 100 H HDL Cholesterol 42 TSH 0.97 Blood Type A Positive Antibody Screen NEGATIVE Narrative Narrative: EKG 2023 Vent. Rate : 065 BPM Atrial Rate : 065 BPM P-R Int : 156 ms QRS Dur : 086 ms QT Int : 428 ms P-R-T Axes : 021 024 029 degrees QTc Int : 445 ms Normal sinus rhythm Normal ECG No previous ECGs available Assessment and Plan Assessment Anesthesia Assessment: Chart Reviewed Final Anesthetic Review Family History of Problems with Anesthesia: No History of Problems with Anesthesia: No Documented by User: Rosaline Arredondo MD 11/10/24 08:44 HPI - Anesthesia Eval Consult details Narrative: 33yo F for EGD, Laparoscopic Sleeve Gastrectomy, possible diaphragmatic hernia repair, possible ventral hernia repair, possible open PMFSH Active Problems Active Problems: All Active Problems BMI 36.0-36.9,adult (Acute) Obesity (Acute) Esophageal web (Acute) Vitamin A deficiency (Acute) Back pain (Acute) GERD (gastroesophageal reflux disease) (Acute) Anxiety (Acute) Depression (Acute) Obstructive sleep apnea on CPAP (Acute) Hypertension (Acute)- uses anti-hypertensives intermittently - only as needed Morbid obesity (Acute) BMI 36.3 Past Medical History Medical History Gastritis Bipolar 1 disorder Kidney stone Peptic ulcer Back pain GERD (gastroesophageal reflux disease) Anxiety Depression Obstructive sleep apnea on CPAP Hypertension Morbid obesity Family History Family History Paternal Grandmother Colon cancer Maternal Grandmother Breast cancer Paternal Aunt Cervical cancer Paternal Grandfather Mesothelioma Family history of problems with anesthesia: No Surgical History Surgical History History of esophagogastroduodenoscopy (EGD) History of elective Hx of wisdom tooth extraction History of Problems with Anesthesia: No Social History Social History Are you a primary property caretaker to a significant other at home: No Do you presently have visiting nurse or other home services: No Alcohol intake: current Alcohol intake frequency: holidays/special occasions only Alcohol type: other Patient Tobacco Use Status: Never used Tobacco Use of substances other than those prescribed or required for medical reasons: No Have you been hit, kicked, punched, or otherwise hurt by someone within the past year? If so, by whom?: No Are you DNR?: No Advance Directives: No Advance Directives Information Provided: Yes Advance Directives on File: No Patient : No : No Poor oral hygiene: Yes Meds Allergies Allergy/AdvReac Type Severity Reaction Status Date / Time pollen extracts Allergy Intermediate Itchy Eyes Verified 11/10/24 06:15 Home Medications ?Medication ?Instructions ?Recorded ?Confirmed ?Last Taken ?Type fluoxetine 20 mg capsule (Prozac) 80 mg PO BEDTIME 03/31/24 10/28/24 11/09/24 History hydrochlorothiazide 25 mg tablet 12.5 mg PO DAILY 03/31/24 10/28/24 11/08/24 History losartan 25 mg tablet 25 mg PO DAILY 03/31/24 10/28/24 11/08/24 History cholecalciferol (vitamin D3) 250 250 mcg PO DAILY 04/08/24 10/28/24 11/09/24 History mcg (10,000 unit) capsule lurasidone 40 mg tablet 40 mg PO BEDTIME 09/08/24 10/28/24 11/09/24 History trazodone 50 mg tablet 75 mg PO BEDTIME PRN insomnia 10/13/24 10/28/24 11/09/24 History atomoxetine 60 mg capsule 60 mg PO DAILY 10/27/24 10/28/24 11/09/24 History propranolol 10 mg tablet 10 mg PO TID PRN Anxiety 10/27/24 10/28/24 Unknown History Exam Height,Weight and Vital Signs: Height 5 ft 6 in Weight 102.058 kg Vital Signs Temp Pulse Resp BP Pulse Ox O2 Del Method 11/10/24 06:41 97.5 F 74 15 139/93 H 98 Room Air Pertinent Lab Results Pertinent Lab Results: Laboratory Tests 11/02/24 11/02/24 08:55 08:57 WBC 7.1 RBC 4.46 Hgb 13.3 Hct 40.8 MCV 91.5 MCH 29.8 MCHC 32.6 RDW 14.4 Plt Count 285 MPV 11.1 Immature Gran % (Auto) 0.3 Neut % (Auto) 62.3 Lymph % (Auto) 30.3 [place] % (Auto) 5.3 Eos % (Auto) 1.5 Baso % (Auto) 0.3 Lymph # (Auto) 2.2 [place] # (Auto) 0.4 Eos # (Auto) 0.1 Baso # (Auto) 0.0 Abs Immat Gran (auto) 0.02 Absolute Neuts (auto) 4.5 Absolute Nucleated RBC 0.000 Nucleated RBC % (auto) 0.0 PT 12.9 H INR 1.1 APTT 36.0 Sodium 139 Potassium 3.8 Chloride 106 Carbon Dioxide 23 Anion Gap 14 BUN 12 Creatinine 0.66 Estim Creat Clear Calc 146.2 Estimated GFR > 60 Random Glucose 73 Estimat Average Glucose 97 Hemoglobin A1c % 5.0 Insulin Level 4 Calcium 9.5 Total Bilirubin 0.7 AST 17 ALT 14 Alkaline Phosphatase 81 C-Reactive Protein 0.62 H Total Protein 7.4 Albumin 4.0 Triglycerides 59 Cholesterol 153 LDL Cholesterol, Calc 100 H HDL Cholesterol 42 TSH 0.97 Blood Type A Positive Antibody Screen NEGATIVE Laboratory Results - last 24 hr 11/10/24 06:15 Urine Test NEGATIVE Airway Mallampati Class: II TM Dist: >3cm Neck ROM: Full Loose/Missing/Broken Teeth: Yes ([place] teeth extracted. Denies broken or loose teeth) Heart: RRR Lungs: CTAB Assessment and Plan Assessment Anesthesia Assessment: Anesthesia Plan Discussed and Chart Reviewed Final Anesthetic Review Family History of Problems with Anesthesia: No History of Problems with Anesthesia: No NPO: Yes ASA Class: III Final Preanesthetic Review: No Changes in Pt Med Stat, Meds/Allgs Chart Reviewed, Consent Obtained/Reviewed and Anes Risks/Benef Reviewed Patient Risk: Intermediate Procedure Risk: Intermediate Assessment/Block/Sedation in SS: Assess/Block/Sedation- Anesthetic Plan Anesthetic Plan: GA Disposition: Standard PACU and Inp. Admit - Standard Bed
[2024-11-10] VITALS (10 sets, daily range): BP systolic 118–143; BP diastolic 70–93; PULSE 59–92; RESP 12–18; TEMP 35.7–36.7; O2SAT 95–98
[2024-11-10 06:33] LABS: UPreg QC Valid YES; Urine Pregnancy NEGATIVE (NEGATIVE)
[2024-11-10] MEDS: Lactated Ringers 1,000 ML 999 ML IV (06:50)
[2024-11-10] MEDS: Aprepitant 32 MG/4.4 ML VIAL IVPUSH (06:51)
--- OUTSIDE RECORDS SUMMARY | 2024-11-10 07:07 | XMS_ITS | Data Portability ---
Author Organization CATHERINE BUSBY/SHASHANK, DOT Address [address] [place] [address] Assessment No assessment recorded. Plan of Treatment [...] mL subcutane ous pen injector 2024 025 [facility], [address] [place], [address], 08/30/2024 14:55:27 losartan 25 mg tablet 2023 024 [facility] [address], [address] [place] [address], [address], 02/23/2024 09:15:15 Patient TargetsNo targets recorded. Patient InstructionsNo instructions recorded. Reason for Referral None Reported. Results Created Date Observation Date Name Description Value Unit Range Abnormal Flag Note LastModifiedBy Organization Detail LastModifiedTime 02/02/20 24 02/02/2024 COMPL ETE BLOOD COUNT W/ DIFF white blood count 12.4 K/mm3 4.0-11 .0 high Not Available [facility] [address] [place], [address], 02/02/2024 11:27:43 02/02/20 24 02/02/2024 COMPL ETE BLOOD COUNT W/ DIFF red blood count 4.76 M/uL 4.00-5 .50 normal Not Available [address], [address], 02/02/2024 11:27:43 02/02/20 24 02/02/2024 COMPL ETE BLOOD COUNT W/ DIFF hemoglobin 13.6 gm/dL 12.0-1 6.0 normal Not Available [address], [address], 02/02/2024 11:27:43 02/02/20 24 02/02/2024 COMPL ETE BLOOD COUNT W/ DIFF hematocrit 43.8 % 37.0-4 7.0 normal Not Available [address], [address], 02/02/2024 11:27:43 02/02/20 24 02/02/2024 COMPL ETE BLOOD COUNT W/ DIFF mean corpuscular volume 92.0 fL 80.0-1 00.0 normal Not Available [address], [address], 02/02/2024 11:27:43 02/02/20 24 02/02/2024 COMPL ETE BLOOD COUNT W/ DIFF MCHC 31.1 % 32-37 low Not Available [address], [address], 02/02/2024 11:27:43 02/02/20 24 02/02/2024 COMPL ETE BLOOD COUNT W/ DIFF red cell distribution width 13.6 % 11.5-1 6.0 normal Not Available [address], [address], 02/02/2024 11:27:43 02/02/20 24 02/02/2024 COMPL ETE BLOOD COUNT W/ DIFF platelet count 398 K/uL 140-40 0 normal Not Available [address], [address], 02/02/2024 11:27:43 02/02/20 24 02/02/2024 COMPL ETE BLOOD COUNT W/ DIFF mean platelet volume 10.1 fL 8.6-12 .5 normal Not Available [address], [address], 02/02/2024 11:27:43 02/02/20 24 02/02/2024 COMPL ETE BLOOD COUNT W/ DIFF %nucleated RBC auto 0.0 % 0.0-0. 7 normal Not Available [address], [address], 02/02/2024 11:27:43 02/02/20 24 02/02/2024 COMPL ETE BLOOD COUNT W/ DIFF %neutrophils auto 65.3 % Not Available [address], [address], 02/02/2024 11:27:43 02/02/20 24 02/02/2024 COMPL ETE BLOOD COUNT W/ DIFF %lymphocytes auto 27.6 % Not Available [address], [address], 02/02/2024 11:27:43 02/02/20 24 02/02/2024 COMPL ETE BLOOD COUNT W/ DIFF %monocytes auto 5.1 % Not Available [address], [address], 02/02/2024 11:27:43 02/02/20 24 02/02/2024 COMPL ETE BLOOD COUNT W/ DIFF %eosinophils auto 1.4 % Not Available [address], [address], 02/02/2024 11:27:43 02/02/20 24 02/02/2024 COMPL ETE BLOOD COUNT W/ DIFF %basophils auto 0.3 % Not Available [address], [address], 02/02/2024 11:27:43 02/02/20 24 02/02/2024 COMPL ETE BLOOD COUNT W/ DIFF %immature granulocytes auto 0.3 % Not Available [address], [address], 02/02/2024 11:27:43 02/02/20 24 02/02/2024 COMPL ETE BLOOD COUNT W/ DIFF #neutrophils auto 8.11 K/uL 1.50-7 .50 high Not Available [address], [address], 02/02/2024 11:27:43 02/02/20 24 02/02/2024 COMPL ETE BLOOD COUNT W/ DIFF #lymphocytes auto 3.42 K/uL 1.00-4 .50 normal Not Available [address], [address], 02/02/2024 11:27:43 02/02/20 24 02/02/2024 COMPL ETE BLOOD COUNT W/ DIFF #monocytes auto 0.63 K/uL 0.00-0 .80 normal Not Available [address], [address], 02/02/2024 11:27:43 02/02/20 24 02/02/2024 COMPL ETE BLOOD COUNT W/ DIFF #eosinophils auto 0.17 K/uL 0.00-0 .40 normal Not Available [address], [address], 02/02/2024 11:27:43 02/02/20 24 02/02/2024 COMPL ETE BLOOD COUNT W/ DIFF #basophils auto 0.04 K/uL 0.00-0 .20 normal Not Available [address], [address], 02/02/2024 11:27:43 02/02/20 24 02/02/2024 COMPL ETE BLOOD COUNT W/ DIFF #immature granulocytes auto 0.04 K/uL 0.00-0 .10 normal Not Available [address], [address], 02/02/2024 11:27:43 02/02/20 24 02/02/2024 COMPR EHENS JAMILAH METAB OLIC PANEL sodium 139 mEq/L 133-14 5 normal Not Available [address], [address], 02/02/2024 12:33:35 02/02/20 24 02/02/2024 COMPR EHENS JAMILAH METAB OLIC PANEL potassium 4.5 mEq/L 3.5-5. 1 normal Not Available [address], [address], 02/02/2024 12:33:35 02/02/20 24 02/02/2024 COMPR EHENS JAMILAH METAB OLIC PANEL chloride 104 mEq/L 98-112 normal Pleas e note new refer ence range . Not Available [address], [address], 02/02/2024 12:33:35 02/02/20 24 02/02/2024 COMPR EHENS JAMILAH METAB OLIC PANEL carbon dioxide 27 mEq/L 22-31 normal Not Available [address], [address], 02/02/2024 12:33:35 02/02/20 24 02/02/2024 COMPR EHENS JAMILAH METAB OLIC PANEL anion gap 8 mEq/L 5-15 normal Not Available [address], [address], 02/02/2024 12:33:35 02/02/20 24 02/02/2024 COMPR EHENS JAMILAH METAB OLIC PANEL blood urea nitrogen (BUN) 8 mg/dL 7-19 normal Not Available [address], [address], 02/02/2024 12:33:35 02/02/20 24 02/02/2024 COMPR EHENS JAMILAH METAB OLIC PANEL creatinine 0.84 mg/dL 0.50-1 .02 normal Not Available [address], [address], 02/02/2024 12:33:35 02/02/20 24 02/02/2024 COMPR EHENS [...] G5 (kidn ey failu re). Not Available [address], [address], 02/02/2024 12:33:35 02/02/20 24 02/02/2024 COMPR EHENS JAMILAH METAB OLIC PANEL glucose 82 mg/dL 70-100 normal Fasti ng Refer ence Inter norma: 70-10 0mg/d L Non-f astin g Refer ence Inter norma: 70-14 0mg/d L Not Available [address], [address], 02/02/2024 12:33:35 02/02/20 24 02/02/2024 COMPR EHENS JAMILAH METAB OLIC PANEL calcium 9.2 mg/dL 8.4-10 .4 normal Not Available [address], [address], 02/02/2024 12:33:35 02/02/20 24 02/02/2024 COMPR EHENS JAMILAH METAB OLIC PANEL bilirubin total 0.8 mg/dL 0.2-1. 2 normal Not Available [address], [address], 02/02/2024 12:33:35 02/02/20 24 02/02/2024 COMPR EHENS JAMILAH METAB OLIC PANEL aspartate amino transferase 22 IU/L 5-34 normal Not Available [address], [address], 02/02/2024 12:33:35 02/02/20 24 02/02/2024 COMPR EHENS JAMILAH METAB OLIC PANEL alanine aminotransfe rase 26 IU/L 0-55 normal Not Available [address], [address], 02/02/2024 12:33:35 02/02/20 24 02/02/2024 COMPR EHENS JAMILAH METAB OLIC PANEL total protein 7.2 g/dL 6.0-8. 3 normal Not Available [address], [address], 02/02/2024 12:33:35 02/02/20 24 02/02/2024 COMPR EHENS JAMILAH METAB OLIC PANEL albumin 3.3 g/dL 2.8-5. 4 normal Not Available [address], [address], 02/02/2024 12:33:35 02/02/20 24 02/02/2024 COMPR EHENS JAMILAH METAB OLIC PANEL alkaline phosphatase 105 IU/L 40-150 normal Not Available [address], [address], 02/02/2024 12:33:35 02/02/20 24 02/02/2024 LIPID PANEL triglyceride s 77 mg/dL normal Debra l <=150 Debra l 150-1 99 Borde rline High 200-4 99 High >=500 Very High Not Available [address], [address], 02/02/2024 12:33:35 02/02/20 24 02/02/2024 LIPID PANEL cholesterol 168 mg/dL normal Edu able <200 Edu able 200-2 39 Borde rline High >=240 High Not Available [address], [address], 02/02/2024 12:33:35 02/02/20 24 02/02/2024 LIPID PANEL LDL cholesterol calculated 106 mg/dL normal Near Optim al <100 Optim al 100-1 29 Near optim al 130-1 59 Borde rline High 160-1 89 High >=190 Very High Not Available [address], [address], 02/02/2024 12:33:35 02/02/20 24 02/02/2024 LIPID PANEL HDL cholesterol 47 mg/dL 40- Not Available [address], [address], 02/02/2024 12:33:35 02/02/20 24 02/02/2024 THYRO ID STIMU LATIN G HORMO NE thyroid stimulating hormone 1.58 uIU/m L 0.35-4 .94 normal Not Available [address], [address], 02/02/2024 12:33:36 Result Notes None recorded. Problems Name Problem SNOMED Code Status Onset Date Resolution Date Notes Provider Name and Address Organization Details Recorded Time Allergic rhinitis 71045361 Active 2019 Gavin Thomson MD [address] [place] [address], [place], [address], [place] - PMA/WIP 0 12:02:22 Obesity 249594555 Active 2022 Gavin Thomson MD [address] [place] [address], [place], [address], [place] - PMA/WIP 3 09:03:19 Attention deficit hyperactivity disorder 482210008 Active 2023 Gavin Thomson MD [address] [place] [address], [place], [address], [place] PMA/WIP 4 11:08:11 Essential hypertension 54249579 Active 2018 Gavin Thomson MD [address] [place] [address], [facility] [address], [place], [address], [place] - PMA/WIP 9 14:42:20 Depressive disorder 58845755 Active 2018 Gavin Thomson MD [address] [place] [address], [place], [address], [place] - PMA/WIP 9 14:42:45 Anxiety 14923998 Active 2018 Gavin Thomson MD [address] [place] [address], [place], [address], [place] - PMA/WIP 9 14:42:52 Vitamin D deficiency 92928502 Active 2018 Gavin Thomson MD [address] [place] [address], [place], [address], [place] PMA/WIP 9 14:43:13 Obstructive sleep apnea syndrome 08029779 Active 2018 on CPAP Gavin Thomson MD [address] [place] [address], [place], [address], [place] - PMA/WIP 9 14:43:42 Notes:Some problems listed i n Document: #[id number] could not be added to this patient's [...] Address Organization Details Last Updated DateTime 4 771084. 52 g 97 % 97 % 102 /min 150 mm[Hg] 100 mm[Hg] Celeste Ojeda [facility] - PMA/WIP 4 10:32:20 Date Recorded Body weight Oxygen saturation Oxygen saturation in Arterial blood by Pulse oximetry Heart rate Systolic blood pressure Diastolic blood pressure Provider Name and Address Organization Details Last Updated DateTime 4 496402. 01 g 98 % 98 % 87 /min 150 mm[Hg] 102 mm[Hg] Celeste Ojeda [facility] [place] - PMA/WIP 4 08:54:31 Date Recorded Body weight Oxygen saturation Oxygen saturation in Arterial blood by Pulse oximetry Heart rate Systolic blood pressure Diastolic blood pressure Provider Name and Address Organization Details Last Updated DateTime 4 884050. 11 g 98 % 98 % 73 /min 146 mm[Hg] 92 mm[Hg] Celeste Ojeda [facility]/WIP 4 10:09:27 Date Recorded Systolic blood pressure Diastolic blood pressure Provider Name and Address Organization Details Last Updated DateTime 03/24/2024 132 mm[Hg] 80 mm[Hg] Gavin Thomson MD [address] [place] [address], [address], [place], [address], [facility] PMA/WIP 03/24/2024 10:28:47 Date Recorded Body weight Oxygen saturation Oxygen saturation in Arterial blood by Pulse oximetry Heart rate Systolic blood pressure Diastolic blood pressure Provider Name and Address Organization Details Last Updated DateTime 5 007396. 2 g 98 % 98 % 96 /min 120 mm[Hg] 80 mm[Hg] Celeste Ojeda [facility]/WIP 5 14:47:36 Date Recorded Body weight Oxygen saturation Oxygen saturation in Arterial blood by Pulse oximetry Heart rate Systolic blood pressure Diastolic blood pressure Provider Name and Address Organization Details Last Updated DateTime 5 103013. 05 g 95 % 95 % 82 /min 130 mm[Hg] 80 mm[Hg] [facility] 14:36:13 Social History Question Answer Notes LastModified by Organizat ion Details LastModified Time Tobacco Smoking Status Never Smoker Not Available [facility] 04/26/2020 03:13:01 What Is Your Level Of Alcohol Consumption? None [email or web address] Information not available 12/05/2022 What Was The Date Of Your Most Recent Tobacco Screening? 01/18/2019 [id number] Information not available 04/26/2020 Sex: Female Functional [...] or 50 mcg/0.25mL dose 2 completed Gavin Thomson MD [address] [place] [address], [address], [place] - PMA/WIP 12/05/2022 08:17:49 COVID-19, mRNA, LNP-S, PF, 30 mcg/0.3 mL dose 1 completed Gavin Thomson MD [address] [place] [address], [address], [place] - PMA/WIP 12/05/2022 08:17:49 COVID-19, mRNA, LNP-S, PF, 30 mcg/0.3 mL dose 1 completed Gavin Thomson MD [address] [place] [address], [place], [address], [place] - PMA/WIP 12/05/2022 08:17:49 Influenza, split virus, quadrivalent, preservative 9 completed Elvia vásquez, [place] - PMA/WIP 05/30/2019 09:12:53 Past Encounters Encounter ID Performer Location Encounter Start Date Encounter Closed Date Diagnosis/Indication Diagnosis SNOMED-CT Code Diagnosis ICD10 Code Diagnosis Note [id number] MD Evelia Kochbelkys [place] [address] [place] [address] 01/18/2019 14:34:53 01/19/2019 08:15:20 Body mass index 30+ - obesity 866965635 Z68.42 diet reviewed; discussed weight loss sugery Essential hypertension 95909709 I10 hctz, diet Obstructiv e sleep apnea syndrome 16442796 G47.33 CPAP [id number] MD Sola Koch [place] [address] [place] [address] 05/30/2019 08:47:16 05/31/2019 07:30:50 Obstructive sleep apnea syndrome 17069854 G47.33 CPAP Depressive disorder 3548 9007 F32.9 f/u psych; fluoxetine Anxiety 13027615 F41.9 f/u psych; fluoxetine Essential hypertension 10695978 I10 hctz; low salt Vitamin D deficiency 347 63007 E55.9 check level [id number] Gavin Thomson MD [facility] [place] [address] [place] [address] 11/24/2019 10:13:22 11/24/2019 12:59:09 Depressive disorder 36704902 F32.9 f/u psych; fluoxetine Anxiety 51684003 F41.9 f/u psych; fluoxetine Obstructiv e sleep apnea syndrome 49634072 G47.33 CPAP Essential hypertension 81619787 I10 hctz; low salt Body mass index 30+ - obesity 764310831 Z68.42 diet reviewed; discussed weight loss sugery Exposure t o SARS-CoV-2 222626300 Z20.828 [id number] Gavin Thomson MD [address] [address] 04/10/2020 07:58:12 04/11/2020 14:33:04 Obstructive sleep apnea syndrome 67828089 G47.33 CPAP Anxiety 96833872 F41.9 f/u psych; fluoxetine Depressive disorder 8 9007 F32.9 f/u psych; fluoxetine ; now with wellbutrin Essential hypertension 48285407 I10 hctz; low salt; check labs; Vitamin D deficiency 347 62988 E55.9 check level Body mass index 30+ - obesity 379811073 Z68.42 diet reviewed; discussed weight loss surgery Exposure t o SARS-CoV-2 447012263 Z20.828 [id number] Gavin Thomson MD [facility] [place] [address] [place] [address] 10/04/2020 07:53:36 10/04/2020 10:08:31 Obstructive sleep apnea syndrome 63724553 G47.33 CPAP Vitamin D deficiency 347 18291 E55.9 check level Anxiety 84887050 F41.9 f/u psych; fluoxetine Essential hypertension 08477322 I10 hctz; low salt; check labs; Depressive disorder 3548 9007 F32.9 f/u psych; fluoxetine ; now with wellbutrin Body mass index 30+ - obesity 630089390 Z68.42 diet reviewed; discussed weight loss surgery [id number] Gavin Thomson MD [address] [address] 08/19/2021 09:03:00 08/19/2021 10:18:49 Obstructive sleep apnea syndrome 35369797 G47.33 CPAP Vitamin D deficiency 347 16090 E55.9 check level Anxiety 67920598 F41.9 f/u psych; fluoxetine Depressive disorder 3548 9007 F32.9 f/u psych; fluoxetine ; now with wellbutrin Essential hypertension 27583413 I10 hctz; low salt; check labs; Allergic rhinitis 940200 04 J30.9 Impaired f asting glycemia 650243592 R73.01 [id number] Gavin Thomson MD [address] [address] 12/05/2022 08:11:00 12/05/2022 09:07:09 Obstructive sleep apnea syndrome 67327819 G47.33 CPAP Anxiety 83196362 F41.9 f/u psych; fluoxetine Depressive disorder 3548 9007 F32.9 f/u psych; fluoxetine ; now with wellbutrin Essential hypertension 67972585 I10 hctz; low salt; check labs; Vitamin D deficiency 347 78554 E55.9 check level History an d physical examination, school 79661639 Z02.0 needs he;p B SABneeds viral titres orderednee ds IGRAobes Obesity 871531177 E66.9 diet discussed [id number] Gavin Thomson MD [address] [address] 02/04/2024 10:28:43 02/04/2024 12:15:32 Obesity 023623736 E66.9 diet discussed Obstructiv e sleep apnea syndrome 20963964 G47.33 CPAP Allergic rhinitis 424746 04 J30.9 Anxiety 83335560 F41.9 f/u psych; fluoxetine Essential hypertension 81660265 I10 hctz; low salt; check labs;bp checks on methylphen idate call with results Depressive disorder 3548 9007 F32.9 f/u psych; fluoxetine ; Attention deficit hyperactivity disorder 011224083 F90.9 continue psych therapy [id number] [facility] [place] [address] 02/23/2024 08:52:23 02/23/2024 09:19:34 Attention deficit hyperactivity disorder 038681753 F90.9 continue psych therapy Obstructiv e sleep apnea syndrome 93553566 G47.33 CPAP Depressive disorder 3548 9007 F32.9 f/u psych; fluoxetine ; Essential hypertension 39942264 I10 add losartan 25 mgreduce to 12.5 mg prior: hctz; low salt; check labs;bp checks on methylphen idate call with results [id number] MD Sola Koch [address] [address] [place] [address] 03/24/2024 10:05:45 03/24/2024 10:30:54 Attention deficit hyperactivity disorder 005375009 F90.9 continue psych therapy Obesity 282469361 E66.9 diet discussed Obstructiv e sleep apnea syndrome 57066682 G47.33 CPAP Anxiety 01316052 F41.9 f/u psych; fluoxetine Essential hypertension 05935723 I10 add losartan 25 mgcontinue hctz at 25 mg prior: hctz; low salt; check labs;bp checks on methylphen idate call with results [id number] MD Sola Koch [address] [address] [place] [address] 08/09/2024 14:44:59 08/11/2024 08:04:12 Attention deficit hyperactivity disorder 673701666 F90.9 continue psych therapy Obesity 222016792 E66.9 diet discussed Obstructiv e sleep apnea syndrome 75031405 G47.33 CPAP Depressive disorder 3548 9007 F32.9 f/u psych; fluoxetine ; Essential hypertension 82062798 I10 add losartan 25 mgcontinue hctz at 25 mg prior: hctz; low salt; check labs;bp checks on methylphen idate call with results [id number] MD Sola Koch [address] [place] [address] 08/30/2024 14:16:44 09/01/2024 13:10:38 Attention deficit hyperactivity disorder 924148489 F90.9 continue psych therapy Obesity 941449418 E66.9 diet discussed Obstructiv e sleep apnea syndrome 48628153 G47.33 CPAP Anxiety 75289913 F41.9 f/u psych; fluoxetine Depressive disorder 3548 9007 F32.9 f/u psych; fluoxetine ; Essential hypertension 69603532 I10 add losartan 25 mgcontinue hctz at [...] Name 02/04/2024 1 [place] [id number] Mannie Mayo [place] [id number] 837 Beckie Edouard 02/23/2024 1 [place] [id number] Mannie V Beron [id number] 837 Beckie Edouard 03/24/2024 1 [place] [id number] Mannie V Beron [id number] 837 Beckie Edouard 08/09/2024 1 [place] [id number] Mannie V Beron [id number] 837 Beckie Edouard 08/30/2024 1 [place] [id number] Mannie V [place] [id number] 837 Beckie Edouard 08/30/2024 2 [place] [facility] [place] [id number] Beckie Edouard [id number] 962 Beckie Edouard Notes Date Note Type Note Provider Name and Address Organization Details Recorded Time 02/04/2024 text/html doing well;no pr ob with meds;now on prozac 40 mg and 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 [facility];virtual psychstill on HCTZbp 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 128/70sometimes left flank pain with standing for a long time Gavin Thomson MD [address] [place] [address], [place] [address], [place], [address], [place] - PMA/WIP 02/04/2024 11:09:16 02/23/2024 text/html was doing well; but bp has been up;140's /90used to be lower;stopped taking 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;mood is better on lexapro;on hctz 25; Gavin Thomson MD [address] [place] [address], [place], [address], [place] - PMA/WIP 02/23/2024 09:16:00 03/24/2024 text/html doing well; no p razia with meds;on losartan 25 mg hctz 25 mgbp at home 125/72now on zyprexa 7.5fluoxetine 60 mg Gavin Thomson MD [address] [place] [address], [place], [address], [place] - PMA/WIP 03/24/2024 10:29:10 08/09/2024 text/html doing ok2 pets d ied this month;tried concerta but choked on tabletsaw gi and had endoscopy for esophageal webbiopsy will have dilation done;had LEEP procedure done;start strattera tomorrow Gavin Thomson MD [address] [place] [address], [place], [address], [place] - PMA/WIP 08/09/2024 15:18:49 08/30/2024 text/html wanting to lose weighthas been prescribed zepbound before but too expensivenow has new insuranceis considering bariatric surgeryhas lost 76 lbs through diet and exercise but weight loss has stopped Gavin Thomson MD [address] [place] [address], Suite [facility], [place], [address], [place] - PMA/WIP 09/01/2024 13:06:39 OBGyn Episode No OBEpisode recorded.
--- NOTE | 2024-11-10 07:21 | MHC.SHP ---
Pre-Procedural Eval Section A - 24 Hr Update-Section A only Date of Service: 11/10/24 The patient is an INPATIENT: Yes The patient has been examined within 24 hours of the surgical procedure. The History & Physical has been completed within 30 days and I have reviewed it.: Yes Section B - Complete if H&P > 30 days Chief Complaint: obesity Relevant Family History (Specify if Yes): No Relevant Social History: None Present Medications: None Medical History: No relevant PMH History of Previous Operations: No relevant previous surgery Allergies: Allergies Allergy/AdvReac Type Severity Reaction Status Date / Time pollen extracts Allergy Intermediate Itchy Eyes Verified 11/10/24 06:15 Review of Systems Sugical H&P ROS: Negative: Constitution, Cardiovascular, Respiratory, Neurological, Psychiatric, Hem-Onc, Allergic/Immunologic, Gastrointestinal, Genitourinary, Musculoskeletal, Integumentary, Endocrine and Eyes/Ears/Nose/Throat Exam Surgical H&P Exam: Normal: HEENT, Normal: Heart, Normal: Lungs, Normal: Extremities, Normal: Abdomen, Normal: Skin and Normal: Neurological Plan Diagnosis/Plan: Unchanged I have reviewed the history and physical and performed a pertinent physical examination on my patient. No changes have occurred unless specified. Time Spent With Patient Time: Total time managing care of this patient today ____ minutes.
--- NOTE | 2024-11-10 07:39 | P.BOP_ITS ---
Brief Operative Note Date of Service: 11/10/24 Pre-op diagnosis: Severe obesity with comorbidities (see below) Post-op diagnosis: same Procedure: INITIAL PATIENT BMI ON PRESENTATION AT OUR OFFICE: 52.5 kg/m2 LAST BMI BEFORE SURGERY: 34.8 kg/m2 COMORBIDITIES: sleep apnea on CPAP, hypertension, depression, anxiety, GERD, back pain ?The patient presented to the Weight Management Program with significant obesity that was negatively impacting the patient's comorbidities as listed above.? The program is a phased program with a special focus on preoperative medical weight management to promote substantial weight loss and prepare the patients for the second phase of the program: bariatric surgery. The patient participated in an intensive weekly lifestyle ?intervention and exercise program during which the patient ?has lost between the initial office visit and the last preoperative visit 106.2lbs, or 32.9% of initial actual body weight. It was deemed appropriate for the patient to now have bariatric surgery. In light of the current Covid-19 pandemic and the well documented strong association of obesity and increased risk of worse outcomes if infected with Covid-19 (REFERENCES: https://pubmed.ncbi.nlm.nih.gov/09370322/ ,? https://pubmed.ncbi.nlm.nih.gov/02107276/ ), any delay in undergoing bariatric surgery may lead to the patient's worsening health condition and increased?risk of more severe Covid-19 disease if infected. In addition a recent?study from [facility] published in [facility] Surgery on 07/08/2021 ([email or web address]) found that, among patients with obesity, substantial weight loss achieved with surgery was associated with improved outcomes of COVID-19 infection. The findings suggest that obesity can be a modifiable risk factor for the severity of COVID-19 infection. In addition, the patient met the BMI-criteria for bariatric surgery based on the BMI on initial presentation. The patient should not be penalized for achieving such weight loss because ?it is not sustainable long-term without surgical intervention and it was achieved in preparation for bariatric surgery ?under my direction and based on my published research ([email or web address]).[email or web address] and? https://www.soard.org/article/[email or web address](41)92427-X/pdf ) ?that a 10% preop erative weight loss improves long-term weight loss after surgery and reduces perioperative complications.? Insurance carriers such as [facility] have endorsed my recommendations ?and have included in their policies criteria to include a 10% preoperative weight loss requirement. PROCEDURE: Esophago-gastroscopy, laparoscopic lysis of adhesions, laparoscopic sleeve gastrectomy and laparoscopic gastropexy INDICATIONS: This is a 33 year-old female who was electively scheduled for laparoscopic, possibly open sleeve gastrectomy. The risks and complications of the procedure were discussed with the patient in advance, particularly the possibility of ; pulmonary embolism; staple line leak; bleeding; GERD; cardiac, pulmonary, or renal complications; as well as long-term problems such as insufficient weight loss, vitamin deficiency, strictures, or ulcers. The patient understood all the risks, and was in agreement to proceed with surgery. DESCRIPTION OF PROCEDURE: After informed consent was obtained from the patient, the patient was given preoperative antibiotics, and was transferred to the operating room. After successful induction of general anesthesia, pneumatic compression devices were placed on both lower extremities. An upper endoscopy was performed next. The oropharynx and esophagus appeared to be within normal limits. There was no diaphragmatic hernia present. The stomach was entered. Then after all fluid and air were suctioned and the stomach was fully decompressed, the scope was withdrawn and secured in the mid esophagus. The patient was then prepped and draped in the usual sterile manner, and abdominal access was established at the right upper quadrant with the Cedrick technique. A 12 mm blunt port was inserted, and the abdomen was insufflated with CO2 to a pressure of 15 mmHg. Under direct visualization, additional ports were placed, specifically two 5 mm Versi-step ports to the left upper quadrant, and a 5 mm Versi-Step port to the right upper quadrant. 1% lidocaine plain was used to infiltrate all port sites as well as all fascia defects. Following that, the patient was placed in a steep reverse Trendelenburg position. An additional 5 mm port was placed to the right flank for the Mediflex retractor that was used to retract the left lobe of the liver. The gastro-esophageal fat pad was opened with the ultrasonic device (Thunderbeat, Olympus) and the anterior esophagus and hiatus were exposed. The angle of His was opened with the ultrasonic device the fundus of the stomach from any diaphragmatic and splenic attachments. I then opened the gastrocolic ligament between the transverse colon and the greater curvature of the stomach with the ultrasonic device to enter the lesser sac and facilitate the ligation of the short gastric vessels. I started at a mid-point along the greater curvature and using the Thunderbeat, all short gastric vessels were divided all the way to the angle of His until the left manjeet was completely dissected at its entirety. I then divided the gastro-colic ligament distally to a distance of about 3-4 cm proximal to the pylorus. There were extensive congenital adhesions between the pancreas and posterior gastric wall as well as very large and multiple posterior gastric vessels very close to speen that made the dissection very difficult. Those were lysed completely with the ultrasonic device. Adhesiolysis took approximately 45 min to complete. The stomach was then divided transversely with three Endo ROSALIE-45 purple and three ROSALIE-60 articulating purple loads using the ADOR stapler and loads. Every effort was made that the gastric sleeve had a tubular shape and an even caliber throughout. Once the sleeve resection was completed, the staple line of the gastric sleeve was reinforced with Hemoclips. The resected stomach was retrieved without difficulty from the Cedrick port. A gastropexy was then performed in order to prevent postoperative GERD and partial gastric volvulus. Several interrupted 2.0 Surgidac sutures were placed between the sleeve's staple line and the previously divided greater omentum and gastro-colic ligament using the Endo-Stitch device. ?An upper endoscopy was performed. There was no narrowing at the GE junction. The scope was easily advanced all the way to the pylorus which was clearly visualized. There was no narrowing anywhere and the sleeve's caliber was even throughout. The sleeve's staple line was inspected and there was no evidence of ischemia, bleeding or dehiscence. At that point the gastroscope was withdrawn from the patient?s mouth while we were decompressing the bowel and the stomach from any remaining air. I looked into the lesser sac to see how the sleeve was situating and it was situating well. There was no bleeding from the staple line, spleen, or short gastric vessels. The Mediflex retractor was removed, and the undersurface of the liver was inspected and there was no bleeding. The patient was placed in supine position. I closed the fascial defect of the 12 mm port site with a figure of eight #1 Polysorb suture. Then 30cc Ropivacaine plain with 10 mg of Dexamethasone were used to infiltrate the fascial closure as well as all skin incisions. At this point, the abdomen was deflated, all ports were removed under direct vision, and no bleeding was noted from any of the port sites. The skin incisions were irrigated with saline and were closed with 4-0 absorbable monofilament sutures. Steri-Strips and OpSites were used to cover all incisions. The patient was extubated and was transferred in stable condition to the recovery room for fu rther care. I was present and performed all kovacs parts of the procedure. Ms. Oliveira was the store assistant. There were no residents to assist with this case. Norbert Pinon MD, PhD, FACS Surgeon: Ralph Pinon MD Anesthesia: GETA, local and other (TAP block) Was an Retail Business Analyst used for this Procedure?: Yes Retail Business Analyst: Shilpa Oliveira Estimated blood loss (mL): 10 IV fluids (mL): 1,800 Urine output (mL): 0 (No Velazquez to record output) Pathology: other (1) Stomach, 2) Gastro-esophageal fat pad) Condition: stable Disposition: PACU
--- NOTE | 2024-11-10 07:41 | P.PNGS_ITS ---
Subjective Subjective Date of Service: 11/11/24 Interval history: Feels well. Mild incisional pain. She is tolerating phase 1 bariatric diet Physical Exam 2 Vital Signs: Vital Signs: Last Vital Signs Temp 97.5 F 11/10/24 06:41 Pulse 74 11/10/24 06:41 Resp 15 11/10/24 06:41 BP 139/93 H 11/10/24 06:41 Pulse Ox 98 11/10/24 06:41 O2 Del Method Room Air 11/10/24 06:41 BMI result Body Mass Index 36.3 GI: Inspection: Yes normal to inspection, Yes incision (clean, dry and intact) and Yes obesity Palpation (GI): Soft to palpation Extrem: Right lower extremity: normal to inspection (no calf tenderness) L eft lower extremity: normal to inspection (no calf tenderness) Objective Data Active Medications Lactated Ringer's (Lr) 1,000 mls @ 100 mls/hr IVCONT .Q10H JOYCELYN Lactated Ringer's (Lr) 1,000 mls @ 999 mls/hr IV .Q1H1M JOYCELYN Stop: 11/10/24 08:15 Last Admin: 11/10/24 06:50 Dose: 999 mls/hr Documented By: OLENA Labs 11/11/24 05:49 11/11/24 05:49 Labs: Laboratory Results - last 24 hr 11/10/24 06:15 Urine Test NEGATIVE Procedures Date of Service Date of Service: 11/11/24 Progress Note: A&P Assessment and plan (1) Obesity: Status: Acute Assessment and Plan: s/p laparoscopic sleeve gastrectomy, lysis of adhesions and gastropexy Doing well Will check am labs and if OK the patient will be discharged home (2) BMI 34.0-34.9,adult: Status: Acute (3) Hypertension: Status: Acute (4) GERD (gastroesophageal reflux disease): Status: Acute (5) Back pain: Status: Acute (6) Obstructive sleep apnea on CPAP: Status: Acute (7) Depression: Status: Acute (8) Anxiety: Status: Acute (9) S/P laparoscopic sleeve gastrectomy: Status: Acute (10) Congenital intra-abdominal adhesions: Status: Acute Time Spent With Patient Time: Total time managing care of this patient today ____ minutes. Quality Stroke Does the patient have a stroke diagnosis?: No VTE Prior VTE?: No VTE Risk Level:: Surgical - moderate VTE Device Contraindication: N/A - Device Ordered VTE Drug Contraindication: Treatment Not Indicated
[2024-11-10] MEDS: ceFAZolin Sodium/Dextrose,Iso 2 GM/50 ML PIGGYBACK IV ×2 (07:50→13:21)
--- NOTE | 2024-11-10 10:10 | PM.DS ---
DS: Providers Provider Date of Service: 11/11/24 Date of admission: 11/10/24 07:03 Date of discharge: 11/11/24 Primary care physician: Zahra Schwab MD DS: Diagnosis Discharge Diagnosis (1) Obesity: Status: Acute (2) BMI 34.0-34.9,adult: Status: Acute (3) Hypertension: Status: Acute (4) GERD (gastroesophageal reflux disease): Status: Acute (5) Back pain: Status: Acute (6) Obstructive sleep apnea on CPAP: Status: Acute (7) Depression: Status: Acute (8) Anxiety: Status: Acute DS: Summary Hospital Course Hospital Course: ADMITTING DIAGNOSIS: morbid obesity,?esophageal web, back pain, GERD, anxiety, depression, GUERA on CPAP, HTN ? DISCHARGE DIAGNOSIS: same, s/p laparoscopic sleeve gastrectomy and gastropexy ? PAST SURGICAL HISTORY:?History of esophagogastroduodenoscopy (EGD), History of elective , Hx of wisdom tooth extraction ? PROCEDURE: upper endoscopy, laparoscopic sleeve gastrectomy and gastropexy ? DISCHARGE SUMMARY: ? History of Present Illness: ? The patient is a? 33? year-old woman with a BMI of? ?36.3 ? kg/m2 and associated co-morbidities as described above. The patient had extensive work-up, lost? 98? lbs preoperatively and was electively scheduled for laparoscopic, possible open sleeve gastrectomy and gastropexy. Risks and complications of the surgery were discussed with the patient in advance, particularly the possibility of , pulmonary embolism, anastomotic leak, bleeding, bowel injury, GERD, cardiac, renal or pulmonary complications. The patient understood all the risks and was in agreement with the surgical plan. ? Hospital Course: ? The patient underwent an uneventful laparoscopic sleeve gastrectomy with gastropexy on the day of admission. Postoperatively, the patient was transferred to the surgical floor. The patient received IV Acetaminophen and IV dilaudid for pain control. Patient was started on bariatric phase 1 diet POD #0. On postoperative day one, the patient was feeling well without nausea, vomiting, fevers, or tachycardia. The patient had some mild incisional pain and the abdomen was soft.? ? On the morning of postoperative day one, the patient was continued on 1 ounce of water or ice every half hour. During the day, the patient did fairly well, having some incisional pain, but able to ambulate adequately and to tolerate liquids well. ? Since the patient is doing well, we decided that the patient was ready to be discharged. The patient was given instructions to follow-up with me next week and to call my office for any fever over 101, persistent abdominal pain, nausea, vomiting, GERD, symptoms of DVT such as calf tenderness, or leg swelling, or pulmonary embolism such as chest pain or shortness of breath.? The patient was also instructed to drink 40-60 ounces of liquids per day using the 1-ounce cups. The patient had been given prescriptions for Tylenol for pain, Zofran prn for nausea, and pantoprazole and carafate previously. The patient was encouraged to ambulate and use the incentive spirometer. The patient was allowed to shower, but no baths, and encouraged to stay active at home. All of these instructions were given to the patient personally. All questions were answered and the patient understood all instructions, the instructions were also given to the patient in print. Time Attestation Discharge Coordination Time (in mins): 30 Quality: Safe Use of Opioids Does Pt have an Active Cancer Diagnosis on the Problem List?: No Quality: Stroke Does the patient have a stroke diagnosis?: No Physical Exam Vital Signs: Vital Signs: Last Vital Signs Temp 97.7 F 11/10/24 10:00 Pulse 82 11/10/24 10:05 Resp 18 11/10/24 10:05 BP 131/79 11/10/24 10:05 Pulse Ox 98 11/10/24 10:05 O2 Del Method Nasal Cannula 11/10/24 10:05 O2 Flow Rate 2 11/10/24 10:05 BMI result Body Mass Index 36.3 DS: Data Data Completed and Pending Pending studies at discharge: Pending at discharge 11/10/24 09:24 Surgical [PTH] Routine Labs on day of discharge: Laboratory Results - last 24 hr 11/10/24 06:15 Urine Test NEGATIVE Discharge Plan Discharge Anticipated Discharge Date/Time: 11/11/24 10:00 Patient Disposition: Home, Self-Care Discharge Diagnosis: s/p laparoscopic sleeve gastrectomy with gastropexy Referrals: Zahra Schwab MD [Primary Care Provider] - 1 Week Discharge Medications: Continued trazodone 50 mg tablet 75 mg PO BEDTIME PRN (Reason: insomnia) lurasidone 40 mg tablet 40 mg PO BEDTIME atomoxetine 60 mg capsule 60 mg PO DAILY propranolol 10 mg tablet 10 mg PO TID PRN (Reason: Anxiety) pantoprazole 40 mg tablet,delayed release (DR/EC) 40 mg PO DAILY Qty: 90 0RF sucralfate 100 mg/mL suspension 10 ml PO BID Qty: 600 2RF ondansetron 4 mg tablet,disintegrating 4 mg PO Q12H Qty: 20 0RF Rx Instructions: Only take one every 12 hours as needed if you have nausea fluoxetine [Prozac] 20 mg capsule 80 mg PO BEDTIME Held hydrochlorothiazide 25 mg tablet 25 mg PO DAILY Hold Instructions: Resume on 11/11/24. Take only according to parameters given by Dr. Pinon losartan 25 mg tablet 25 mg PO DAILY Hold Instructions: Resume on 11/12/24. Check your blood pressure every morning as soon as you wake up and send it to Dr. Pinon. Do no take the blood pressure medication if the blood pressure is below 120/70. Wait every day to hear back from Dr. Pinon before you take the medication. Discontinued cholecalciferol (vitamin D3) 250 mcg (10,000 unit) capsule 250 mcg PO DAILY Discharge Orders: Discharge Order (Routine); Ordered 11/11/24 Ordered By: Ralph Pinon Activity on Discharge: As tolerated Stand Alone Forms: Patient Portal Discharge page Print Language: Paraguayan Care Plan Goals: weight loss Health Concerns: morbid obesity Plan of Treatment: No tub baths, sex or returning to work until discussed at first post op appointment. No alcohol, tobacco or illegal drug use. Continue to use incentive spirometer hourly while awake. Walk in home for 5- 10 minutes every 2 hours during the first week. Wear abdominal binder with activity. Follow all meal plan instructions from your bariatric surgeon. Review bariatric handbook and call with any questions. Discharge Instructions 1. Please call your doctor or come back to the emergency room should any new symptoms arise. 2. Activity: abstain from alcohol,? limited stair climbing, no bending, no driving, no exercise, no illicit substances, no lifting, no sex, no tub bath, no work. 4. Diet: follow your bariatric surgeon's recommendations for advancing diet. 5. Dressing Change/Wound Care: Your incisions are covered with waterproof dressings. You can shower with these and pat dry. Do not rub over dressings or incisions. If the area is tender, you may apply an ice pack for short intervals (no more than 20 minutes on, followed by at least 20 minutes off). Do not apply heat. Do not use creams, lotions, or topical antibiotics unless instructed to do so by your surgeon. 6. Call your doctor if: - Your temperature exceeds 101.5 F - You experience excessive pain or swelling - You have an unexpected reaction to medication - You have excessive bleeding - You experience continued vomiting/nausea - Your incision begins to separate - Your incision shows signs of infection such as increased redness, swelling, excessive pain, heat, or drainage (light blood or clear fluid is normal) General instructions: No lifting greater than 10 lbs for the next 6 weeks[address] driving within 24 hours of taking narcotic pain medications. If you do not move your bowels in the next 2 days, please take milk of magnesia over the counter. Please follow the post op diet and do not advance your diet until instructed by your surgeon or until you are seen in the office in about 1 week. Please walk around your home every hour or two to prevent blood clots from forming in your legs. You do not need to wake from sleeping to walk. Please sleep in a bed or couch to prevent kinking at the hips and knees. Please take your incentive spirometer (your lung metropolitan editor) home with you and use it for the next few days to prevent pneumonias. You may shower; no hot tubs, baths or swimming pools. Please make sure you are consuming 40-60 ounces of total fluids per day. Avoid all carbonation. Please call the office with any questions or concerns such as increasing abdominal pain, fever, chills, shortness of breath, chest pain, leg pain or swelling, or redness or drainage from your incisions. Do not hesitate to contact the office with any questions at . The patient's medical history has been reviewed and they are considered low risk for post op DVT and therefore DVT prophylaxis is not considered necessary. Travel after surgery was reviewed. The patient has not disclosed any travel plans during the first 30 days after surgery and they have been advised that within the first 30 days after surgery any bus, plane, train or car travel over 2 hours in duration is contraindicated due to the possibility of developing blood clots from immobility. Any travel, needs to include periods of ambulation of 10 minutes in duration every 2 hours.? The patient was instructed to discuss any plans for travel during this period with their bariatric surgeon. Assessment: s/p laparoscopic sleeve gastrectomy with gastropexy Discharge Date/Time: 11/11/24 10:47
[2024-11-10] MEDS: Lactated Ringers 1,000 ML 100 ML IVCONT ×2 (10:37→20:21)
[2024-11-10 10:50] LABS: Hematocrit 38.1 % (37.0-47.0); Hemoglobin 12.6 g/dl (12.0-16.0)
[2024-11-10 10:51] LABS: Anion Gap 18 (12-20); Blood Urea Nitrogen 10 mg/dL (9-16); Calcium 9.2 mg/dL (8.4-10.2); Carbon Dioxide 24 mmol/L (22-29); Chloride 102 mmol/L (96-108); Creatinine Clr Calc Pharmacy 155.6; Estimated Glomerular Filt Rate > 60; Glucose Random 117 mg/dL (60-115); Potassium 3.8 mmol/L (3.3-5.1); Sodium 140 mmol/L (135-145)
--- NOTE | 2024-11-10 11:47 | PHA.MEDREC ---
Pharmacy Consult ? Medication Reconciliation Pharmacy has completed the medication reconciliation. REVIEWED MED REC DONE BY NURSING
[2024-11-10] MEDS: HYDROmorphone HCl 0.5 MG/0.5 ML SYRINGE 0.25 MG IVPUSH (11:51)
[2024-11-10] MEDS: Acetaminophen 1,000 MG/100 ML PIGGYBACK 16.7 MG IV ×3 (11:54→23:47)
[2024-11-10] MEDS: FLUoxetine HCl 20 MG CAPSULE 80 MG PO (20:53)
[2024-11-10] MEDS: Famotidine/PF 20 MG/2 ML VIAL IVPUSH (20:54)
[2024-11-10] MEDS: 0.9 % Sodium Chloride Flush 3 ML SYRINGE IVFLUSH (20:55)
[2024-11-10] MEDS: traZODone HCL 25 MG HALFTAB 75 MG PO (20:58)
[2024-11-11 03:22] VITALS: BP 115/72; PULSE 64; RESP 17; TEMP 36.7; O2SAT 97
[2024-11-11] MEDS: Acetaminophen 1,000 MG/100 ML PIGGYBACK 16.7 MG IV (05:39)
[2024-11-11] MEDS: Lactated Ringers 1,000 ML 100 ML IVCONT (05:46)
[2024-11-11 06:41] LABS: MANUAL DIFF FLAG NO
[2024-11-11 06:49] LABS: Basophils Percent Auto 0.1 % (0-2); Hematocrit 41.2 % (37.0-47.0); Hemoglobin 13.7 g/dl (12.0-16.0); Imm Gran Abs Auto 0.09 X10*3/uL (0.00-0.03); Imm Gran Pct Auto 0.6 % (0.0-0.4); Lymphocytes Absolute Auto 1.9 X10*3/uL (1.2-4.9); Lymphocytes Percent Auto 11.7 % (20-40); Mean Corpuscular HGB Conc 33.3 g/dl (31.0-35.0); Mean Corpuscular Hemoglobin 30.6 pg (27.0-33.0); Mean Corpuscular Volume 92.2 fL (80.0-98.0); Monocytes Absolute Auto 0.7 X10*3/uL (0.1-1.2); Monocytes Percent Auto 4.7 % (2-11); Neutrophils Absolute Auto 13.2 x10*3/uL (2.0-8.3); Neutrophils Percent Auto 82.9 % (45-73); Platelet Count 339 X10*3/uL (160-400); Red Blood Count 4.47 X10*6/uL (4.20-5.50); Red Cell Distribution Width 14.2 % (11.0-16.0); White Blood Count 15.9 X10*3/uL (4.8-10.8)
[2024-11-11 07:00] LABS: Anion Gap 19 (12-20); Blood Urea Nitrogen 7 mg/dL (9-16); Calcium 9.4 mg/dL (8.4-10.2); Carbon Dioxide 23 mmol/L (22-29); Chloride 103 mmol/L (96-108); Creatinine Clr Calc Pharmacy 163.5; Estimated Glomerular Filt Rate > 60; Glucose Random 94 mg/dL (60-115); Sodium 141 mmol/L (135-145)
[2024-11-11] MEDS: Famotidine/PF 20 MG/2 ML VIAL IVPUSH (07:42)
[2024-11-11 08:00] VITALS: BP 128/82; PULSE 74; RESP 18; TEMP 36.3; O2SAT 94
--- NOTE | 2024-11-11 08:34 | MHC.CM.PN ---
pt dcd home self care prior to being seen by cm
--- NOTE | 2024-11-11 09:01 | HO.POSTANES ---
Post Anesthesia Evaluation Post Anesthesia Evaluation Date of Service: 11/11/24 Vital Signs: Vital Signs Temp Pulse Resp BP Pulse Ox O2 Del Method 11/11/24 08:00 97.4 F 74 18 128/82 94 Room Air 11/11/24 03:22 98.0 F 64 17 115/72 97 CPAP 11/10/24 23:27 98.0 F 71 18 118/70 98 CPAP Anesthesia: General Endotracheal-GETA Mental Status: Awake Pain Control: Satisfactory Nausea/Vomiting: None Hydration: Adequate Anesthesia-Related Issues: No Anes. Related Issues
== END 2024-11-11 10:47 | disposition home or self-care (01) | DRG 403 ==
LOC: HO.SSSA 10:08 → HO.S3 10:15
PROVIDERS: Nurse Practitioner; Physician Assistant Surgical; Admitting Provider Surgery; PCP Family Medicine; Visit Provider Surgery
PROC: 0DB64Z3 Excision of Stomach, Percutaneous Endoscopic Approach, Vertical (ICD-10-PCS; CPT 43845; principal; 2024-11-10 07:30)
DX: E66.01 Morbid (severe) obesity due to excess calories (principal); Q43.3 Congenital malformations of intestinal fixation; G47.33 Obstructive sleep apnea (adult) (pediatric); Z68.34 Body mass index [BMI] 34.0-34.9, adult; I10 Essential (primary) hypertension; F32.A Depression, unspecified; F41.9 Anxiety disorder, unspecified; K21.9 Gastro-esophageal reflux disease without esophagitis; M54.9 Dorsalgia, unspecified; Z79.899 Other long term (current) drug therapy
CPT/HCPCS: 36415; 80048; 80053; 80061; 81025; 83036; 83525; 84443; 85014; 85018; 85025; 85610; 85730; 86140; 86850; 86900; 86901; 88304; 88305; 88307; 88342; A4649; C9145; J0131; J0690; J1100; J1171; J1308; J2003; J2250; J2405; J2704; J2795; J3010; J7120

== ENCOUNTER → 2024-11-10 07:03 | Outpatient (BNV) | payer BC, SELFPAY | PROVIDERS: Admitting Provider Surgery; PCP Family Medicine; Visit Provider Surgery | DX: E66.812 Obesity, class 2 (principal); E66.01 Morbid (severe) obesity due to excess calories; Z68.36 Body mass index [BMI] 36.0-36.9, adult; Z68.34 Body mass index [BMI] 34.0-34.9, adult; I10 Essential (primary) hypertension; K21.9 Gastro-esophageal reflux disease without esophagitis; M54.9 Dorsalgia, unspecified; G47.33 Obstructive sleep apnea (adult) (pediatric); F32.A Depression, unspecified; F41.9 Anxiety disorder, unspecified; Z98.84 Bariatric surgery status; Q43.3 Congenital malformations of intestinal fixation | CPT/HCPCS: 43659; 43775; 99024 ==

== ENCOUNTER 2024-11-16 13:15 | Outpatient (AMB) | payer BC, SELFPAY ==
--- NOTE | 2024-11-16 13:05 | A.OFFWM_ITS ---
Intake Intake Visit Reasons: TV PO LSG 11/10/24 Allergies pollen extracts Allergy (Intermediate, Verified 12/06/24 13:35) Itchy Eyes PFSH Medical History (Updated 11/19/24 @ 00:02 by Nathen Razo) BMI 34.0-34.9,adult Gastritis Bipolar 1 disorder Kidney stone Peptic ulcer Back pain GERD (gastroesophageal reflux disease) Anxiety Depression Obstructive sleep apnea on CPAP Hypertension Morbid obesity Surgical History S/P laparoscopic sleeve gastrectomy History of esophagogastroduodenoscopy (EGD) History of elective Hx of wisdom tooth extraction Family History Paternal Grandmother Colon cancer Maternal Grandmother Breast cancer Paternal Aunt Cervical cancer Paternal Grandfather Mesothelioma Social History Household Members: Spouse Housing: House Are you a primary foster care worker to a significant other at home: No Do you presently have visiting nurse or other home services: No Alcohol intake: current Alcohol intake frequency: holidays/special occasions only Alcohol type: other Patient Tobacco Use Status: Never used Tobacco Behavioral Health Assessment Weight Management Therapy Therapy Notes Details Subjective: PT had weight loss surgery on 11/10/2024 Patient denies any pain or difficulties with recovery and reports she is tolerating the liquid diet well. Mood has been good but with some irritability. PT reports she continues attending weekly counseling and has been doing well in new meds she started months ago. ? Objective: The patient presents for a behavioral health post-operative follow-up visit. A guided emotional check-in was conducted to assess her current functioning, recovery, mood, and emotional state. Psychoeducation was provided on the emotional and psychological adjustments commonly experienced after bariatric surgery. We also focused on distinguishing between hunger and cravings or food thoughts, exploring possible reasons for these experiences, and strategies to work on her mindset. Emphasis was placed on becoming mindful of her physical and mental needs during these times while staying on track. The PHQ-9 was administered to screen for symptoms of depression. The importance of adhering to the Weight Management Program (WMP) providers' instructions was emphasized, including the pace of drinking and following the meal and exercise plan. Tips and recommendations for long-term success were also discussed. Program resources were provided, and the patient was invited to join our Facebook group to stay informed about ongoing events and activities. Assessment/Response: * Mental status: WNL besides some irritability noted by PT. * Risk reported/identified: None Food/Weight/Diet Expectations of change She started the program on 04/08/24 and was 323 lbs. Weight on Surgery day 11/10/2024 weight: 213.1 lbs 11/16/2024 PO weight 207 Lbs. Pt's target weight: 150 lbs. PT is implementing the following: Current meal plan: Liquid plan. 1ml per minute. The goal is 40- 50 oz per day. Exercise plan: Cleared yesterday to use the treadmill. Questionnaires PHQ-9 Over the last 2 weeks, how often have you been bothered by any of the following problems? 1. Little interest or pleasure in doing things: not at all 2. Feeling down, depressed, or hopeless: not at all 3. Trouble falling or staying asleep, or sleeping too much: several days 4. Feeling tired or having little energy: more than half the days 5. Poor appetite or overeating: not at all 6. Feeling bad about yourself - or that you are a failure or have let yourself or your family down: not at all 7. Trouble concentrating on things, such as reading the newspaper or watching television: several days 8. Moving or speaking so slowly that other people could have noticed. Or the opposite - being so fidgety or restless that you have been moving around a lot more than usual: not at all 9. Thoughts that you would be better off or of hurting yourself in some way: not at all Total score: 4 Depression Screening Interpretation: Negative Depression Screening Done: Yes 28325 - PHQ-9 Billing: Yes Source: Developed by Drs. Mannie Ny, Berenice Adams, Jose D Borrego and colleagues, with an educational usama from [email or web address]. Assessment & Plan Assessment & Plan (1) Bipolar 2 disorder: Code(s): F31.81 - Bipolar II disorder (2) Status post bariatric surgery: Code(s): Z98.84 - Bariatric surgery status Plan No safety concerns or issues were identified that would necessitate behavioral health monitoring, and she also has her own therapist to continue BH treatment. The patient is aware of the available behavioral health support if needed in the future. Telehealth Telehealth Telehealth Platform: [facility] Location of provider rendering services: other Location of patient: address on file Patient Identification confirmed using: Name, : Yes Telehealth method: voice only Patient verbally consented to treatment: Yes Patient verbally consented to billing insurance company: Yes Patient informed of any privacy concerns related to visit: Yes Minutes spent on Phone/Video with Pt.: 45 Coding Level of Care Code Established Pt Tele Psytx 45 mins (55532) Patient Type Established Diagnoses Bipolar 2 disorder F31.81 Status post bariatric surgery Z98.84 Additional Codes PHQ-9 - 54830 - PHQ-9 Billing: Yes ([id number]) Time Spent (min) 45
--- OUTSIDE RECORDS SUMMARY | 2024-11-16 14:29 | XMS_ITS | Continuity of Care Document ---
Author Organization [facility] Address [address] [address] Assessment No assessment recorded. Plan of Treatment Reminders Order Date Submit Date Provider Last Modified By Organization Details Last Modified Time Details Appointments None record ed. Lab None record ed. Referral None record ed. Procedures None record ed. Surgeries None record ed. Imaging None record ed. Medication Orders None record ed. Patient TargetsNo targets recorded. Patient InstructionsNo instructions recorded. Reason for Referral None Reported. Problems Name Problem SNOMED Code Status Onset Date Resolution Date Notes Provider Name and Address Organization Details Recorded Time Allergic rhinitis 89086462 Active 2019 Gavin Thomson MD [address] [place] [address], [place], [address], [place] - PMA/WIP 0 12:02:22 Obesity 007668116 Active 2022 Gavin Thomson MD [address] [place] [address], [place], [address], [place] - PMA/WIP 3 09:03:19 Attention deficit hyperactivity disorder 598574261 Active 2023 Gavin hTomson MD [address] [place] [address], [place], [address], [place] - PMA/WIP 4 11:08:11 Essential hypertension 75592120 Active 2018 Gavin Thomson MD [address] [place] [address], [place] [address], [place], [address], [place] - PMA/WIP 9 14:42:20 Depressive disorder 82891458 Active 2018 Gavin Thomson MD [address] [place] [address], [address], [place], [address], [place] - PMA/WIP 9 14:42:45 Anxiety 33781833 Active 2018 Gavin Thomson MD [address] [place] [address], [address], [place], [address], [place] - PMA/WIP 9 14:42:52 Vitamin D deficiency 30587377 Active 2018 Gavin Thomson MD [address] [place] [address], [address], [place], [address], [place] - PMA/WIP 9 14:43:13 Obstructive sleep apnea syndrome 14999211 Active 2018 on CPAP Gavin Thomson MD [address] [place] [address], [address], [place], [address], [place] - PMA/WIP 9 14:43:42 Notes:Some problems listed i n Document: #[id number] could not be added to this patient's [...] completed Not Available Not Available Not Available sucralfate 100 mg/mL oral suspension TAKE 10 ML BY MOUTH TWICE DAILY active Not Available Not Available No t Available dextroamphe tamine-amph etamine 10 mg tablet [...] active Not Available Not Available Not Available pantoprazol e 40 mg tablet,haile yed release TAKE 1 TABLET BY MOUTH ONCE DAILY active Not Available Not Available No t Available fluoxetine 20 mg tablet TAKE 2 [...] Not Available Not Available No t Available polyethylen e glycol 3350 17 gram/dose oral powder MIX 17 GRAMS(1 CAPFUL) WITH 8 OZ OF WATER,CRY STAL LIGHT, GATORADE ZERO,OR PROPEL AND DRINK DO IT EACH FOR TOTAL OF 7 CAPFULS ON 11/08/24 AND ANOTHER 7 CAPFULS ON 11/09 completed Not Available Not Available Not Available Prozac 10 mg tablet Take 40 mg every day by oral route. 08/30 completed Not Available Not Available Not Available ondansetron 4 mg disintegrat ing tablet DISSOLVE 1 TABLET IN MOUTH EVERY 12 HOURS FOR NAUSEA AND VOMITING ONLY TAKE NEEDED IF YOU HAVE NAUSEA active Not Available Not Available No t Available fluoxetine 20 mg capsule 08/09 completed Not Available Not Available Not Available spironolact one 50 mg tablet TAKE 1 TABLET BY MOUTH TWICE DAILY 12/05 completed Not Available Not Available Not Available atomoxetine 18 mg capsule TAKE 1 CAPSULE BY MOUTH ONCE DAILY 11/15 completed Not Available Not Available Not Available atomoxetine 60 mg capsule TAKE 1 [...] by subcutane ous route for 28 days. 11/15 completed Not Available Not Available Not Available Vitals Date Recorded Body weight Oxygen saturation Oxygen saturation in Arterial blood by Pulse oximetry Heart rate Systolic blood pressure Diastolic blood pressure Provider Name and Address Organization Details Last Updated DateTime 5 15191.5 4 g 97 % 97 % 75 /min 128 mm[Hg] 88 mm[Hg] Ian aldridge [place] - PMA/WIP 5 08:29:09 Social History Question Answer Notes LastModified by Organizat ion Details LastModified Time Tobacco Smoking Status Never Smoker Not Available [employer] 04/26/2020 03:13:01 What Is Your Level Of Alcohol Consumption? None [email or web address] Information not available 12/05/2022 What Was The Date Of Your Most Recent Tobacco Screening? 01/18/2019 [id number] Information not available 04/26/2020 Sex: Female Functional Status None recorded. Mental Status None recorded. Family History Relationship Description Onset Age of this Age Resolved Age Notes LastModified by Organization Details LastModified Time Father Arthritis [email or web address] Not availabl e 01/18/2019 14:44:14 Mother Lupus erythematosu s [email or web address] Not available 2018 14:44:38 Medical History No medical history recorded. Gynecological HistoryNo gynecological history recorded. Obstetrics History GPAL:G 0 P 0 0 0 0 Immunizations Vaccine Type Date Status Note Provider Nam e and Address Organization Details Recorded Time COVID-19, mRNA, LNP-S, PF, 100 mcg/0.5mL dose or 50 mcg/0.25mL dose 2 completed Gavin Thomson MD [address] [place] [address], [address], [address], [place] - PMA/WIP 12/05/2022 08:17:49 COVID-19, mRNA, LNP-S, PF, 30 mcg/0.3 mL dose 1 completed Gavin Thomson MD [address] [place] [address], [place], [address], [place] - PMA/WIP 12/05/2022 08:17:49 COVID-19, mRNA, LNP-S, PF, 30 mcg/0.3 mL dose 1 completed Gavin Thomson MD [address] [place] [address], [place], [address], [place] - PMA/WIP 12/05/2022 08:17:49 Influenza, split virus, quadrivalent, preservative 9 completed Elvia vásquez, [place] - PMA/WIP 05/30/2019 09:12:53 Past Encounters Encounter ID Performer Location Encounter Start Date Encounter Closed Date Diagnosis/Indication Diagnosis SNOMED-CT Code Diagnosis ICD10 Code Diagnosis Note [id number] MD Sophy Koch [place] [address] [place] [address] 11/15/2024 08:26:57 11/15/2024 12:17:49 Attention deficit hyperactivity disorder 985631350 F90.9 continue psych therapy Obesity 518008923 E66.9 s/p gastri sleevediet discussed Obstructiv e sleep apnea syndrome 52242715 G47.33 CPAP Depressive disorder 3548 9007 F32.9 f/u psych; fluoxetine ; Essential hypertension 85797375 I10 add losartan 25 mgcontinue hctz at 25 mg prior: hctz; low salt; check labs;bp checks on methylphen idate call with results Anxiety 00491376 F41.9 f/u psych; fluoxetine Health Concerns Section Related Observation LastModified by Organization Detai ls LastModified Time None Recorded Concern Status LastModified by Organization Details LastModified Time None Recorded Payers Encounter Date Sequence Insurance Name Policy Number Policy Grewal Covered Member ID Grewal Member ID Guarantor Name 11/15/2024 1 [place] [place] [id number] Mannie Romero [id number] Beckie Edouard 11/15/2024 2 [place] [facility] [place] [id number] Beckie Edouard [id number] Beckie Edouard Notes Date Note Type Note Provider Name and Address Organization Details Recorded Time 11/15/2024 text/html wanting to lose weighthas been prescribed zepbound before but too expensivenow has new insuranceis considering bariatric surgeryhas lost 76 lbs through diet and exercise but weight loss has stopped did not start zepboundhad gastric sleeve 5 days a [facility] WELLtakes 2 ml every minute of fluid while awake Gavin Thomson MD [address] [place] [address], [address], [place], [address], [place] - PMA/WIP 11/15/2024 12:12:35 OBGyn Episode No OBEpisode recorded.
--- OUTSIDE RECORDS SUMMARY | 2024-11-16 14:30 | XMS_ITS | Data Portability ---
Author Organization [facility], DOT Address [address] [place] [address] Assessment No assessment recorded. Plan of Treatment Reminders Order Date Submit Date Provider Last Modified By Organization Details Last Modified Time Details Appointments None recorded. Lab None recorded. Referral None recorded. Procedures None recorded. Surgeries None recorded. Imaging None recorded. Medication Orders Zepbound 2.5 mg/0.5 mL subcutaneou s pen injector 2024 025 [facility], [address] [place] [address], [id number], 08:43:59 losartan 25 mg tablet 2023 024 [facility], [address] [place] [address], [address], 09:15:15 Patient TargetsNo targets recorded. Patient InstructionsNo instructions recorded. Reason for Referral None Reported. Results Created Date Observation Date Name Description Value Unit Range Abnormal Flag Note LastModifiedBy Organization Detail LastModifiedTime 02/02/2002/02/2024 COMPL ETE BLOOD COUNT W/ DIFF white blood count 12.4 K/mm3 4.0-11 .0 high Not Available [address], [address], 02/02/2024 11:27:43 02/02/20 24 02/02/2024 COMPL ETE BLOOD COUNT W/ DIFF red blood count 4.76 M/uL 4.00-5 .50 normal Not Available [address], [address], 02/02/2024 11:27:43 02/02/20 24 02/02/2024 COMPL ETE BLOOD COUNT W/ DIFF hemoglobin 13.6 gm/dL 12.0-1 6.0 normal Not Available [address], [address], 02/02/2024 11:27:43 02/02/20 24 02/02/2024 COMPL ETE BLOOD COUNT W/ DIFF hematocrit 43.8 % 37.0-4 7.0 normal Not Available [address], [address], 02/02/2024 11:27:43 02/02/20 24 02/02/2024 COMPL ETE BLOOD COUNT W/ DIFF mean corpuscular volume 92.0 fL 80.0-1 00.0 normal Not Available [address], [address], 02/02/2024 11:27:43 02/02/20 24 02/02/2024 COMPL ETE BLOOD COUNT W/ DIFF MCHC 31.1 % 32-37 low Not Available [address], [address], 02/02/2024 11:27:43 02/02/20 24 02/02/2024 COMPL ETE BLOOD COUNT W/ DIFF red cell distribution width 13.6 % 11.5-1 6.0 normal Not Available [address], [address], 02/02/2024 11:27:43 02/02/20 24 02/02/2024 COMPL ETE BLOOD COUNT W/ DIFF platelet count 398 K/uL 140-40 0 normal Not Available [address], [address], 02/02/2024 11:27:43 02/02/20 24 02/02/2024 COMPL ETE BLOOD COUNT W/ DIFF mean platelet volume 10.1 fL 8.6-12 .5 normal Not Available [address] [place], [address], 02/02/2024 11:27:43 02/02/20 24 02/02/2024 COMPL ETE BLOOD COUNT W/ DIFF %nucleated RBC auto 0.0 % 0.0-0. 7 normal Not Available [address], [address], 02/02/2024 11:27:43 02/02/20 24 02/02/2024 COMPL ETE BLOOD COUNT W/ DIFF %neutrophils auto 65.3 % Not Available [address], [address], 02/02/2024 11:27:43 02/02/20 24 02/02/2024 COMPL ETE BLOOD COUNT W/ DIFF %lymphocytes auto 27.6 % Not Available [address], [address], 02/02/2024 11:27:43 02/02/20 24 02/02/2024 COMPL ETE BLOOD COUNT W/ DIFF %monocytes auto 5.1 % Not Available [address], [address], 02/02/2024 11:27:43 02/02/20 24 02/02/2024 COMPL ETE BLOOD COUNT W/ DIFF %eosinophils auto 1.4 % Not Available [address], [address], 02/02/2024 11:27:43 02/02/20 24 02/02/2024 COMPL ETE BLOOD COUNT W/ DIFF %basophils auto 0.3 % Not Available [address], [address], 02/02/2024 11:27:43 02/02/20 24 02/02/2024 COMPL ETE BLOOD COUNT W/ DIFF %immature granulocytes auto 0.3 % Not Available [address], [address], 02/02/2024 11:27:43 02/02/20 24 02/02/2024 COMPL ETE BLOOD COUNT W/ DIFF #neutrophils auto 8.11 K/uL 1.50-7 .50 high Not Available [address], [address], 02/02/2024 11:27:43 02/02/20 24 02/02/2024 COMPL ETE BLOOD COUNT W/ DIFF #lymphocytes auto 3.42 K/uL 1.00-4 .50 normal Not Available [address], [address], 02/02/2024 11:27:43 02/02/20 24 02/02/2024 COMPL ETE BLOOD COUNT W/ DIFF #monocytes auto 0.63 K/uL 0.00-0 .80 normal Not Available [address], [address], 02/02/2024 11:27:43 02/02/20 24 02/02/2024 COMPL ETE BLOOD COUNT W/ DIFF #eosinophils auto 0.17 K/uL 0.00-0 .40 normal Not Available [address], [address], 02/02/2024 11:27:43 02/02/20 24 02/02/2024 COMPL ETE BLOOD COUNT W/ DIFF #basophils auto 0.04 K/uL 0.00-0 .20 normal Not Available [address], [address], 02/02/2024 11:27:43 02/02/20 24 02/02/2024 COMPL ETE BLOOD COUNT W/ DIFF #immature granulocytes auto 0.04 K/uL 0.00-0 .10 normal Not Available [address], [address], 02/02/2024 11:27:43 02/02/20 24 02/02/2024 COMPR EHENS JAMILAH METAB OLIC PANEL sodium 139 mEq/L 133-14 5 normal Not Available [address], [address], 02/02/2024 12:33:35 02/02/20 24 02/02/2024 COMPR EHENS JAMILAH METAB OLIC PANEL potassium 4.5 mEq/L 3.5-5. 1 normal Not Available [address], [address], 02/02/2024 12:33:35 02/02/20 24 02/02/2024 COMPR EHENS JAMILAH METAB OLIC PANEL chloride 104 mEq/L 98-112 normal Pleas e note new refer ence range . Not Available [address], [address], 02/02/2024 12:33:35 02/02/20 24 02/02/2024 COMPR EHENS JAMILAH METAB OLIC PANEL carbon dioxide 27 mEq/L 22-31 normal Not Available [address], [address], 02/02/2024 12:33:35 02/02/20 24 02/02/2024 COMPR EHENS JAMILAH METAB OLIC PANEL anion gap 8 mEq/L 5-15 normal Not Available [address], [address], 02/02/2024 12:33:35 02/02/20 24 02/02/2024 COMPR EHENS JAMILAH METAB OLIC PANEL blood urea nitrogen (BUN) 8 mg/dL 7-19 normal Not Available [address], [address], 02/02/2024 12:33:35 02/02/20 24 02/02/2024 COMPR EHENS JAMILAH METAB OLIC PANEL creatinine 0.84 mg/dL 0.50-1 .02 normal Not Available [address], [address], 02/02/2024 12:33:35 02/02/20 24 02/02/2024 COMPR EHENS [...] G5 (kidn ey failu re). Not Available [address], [address], 02/02/2024 12:33:35 02/02/20 24 02/02/2024 COMPR EHENS JAMILAH METAB OLIC PANEL glucose 82 mg/dL 70-100 normal Fasti ng Refer ence Inter norma: 70-10 0mg/d L Non-f astin g Refer ence Inter norma: 70-14 0mg/d L Not Available [address], [address], 02/02/2024 12:33:35 02/02/20 24 02/02/2024 COMPR EHENS JAMILAH METAB OLIC PANEL calcium 9.2 mg/dL 8.4-10 .4 normal Not Available [address], [address], 02/02/2024 12:33:35 02/02/20 24 02/02/2024 COMPR EHENS JAMILAH METAB OLIC PANEL bilirubin total 0.8 mg/dL 0.2-1. 2 normal Not Available [address], [address], 02/02/2024 12:33:35 02/02/20 24 02/02/2024 COMPR EHENS JAMILAH METAB OLIC PANEL aspartate amino transferase 22 IU/L 5-34 normal Not Available [address], [address], 02/02/2024 12:33:35 02/02/20 24 02/02/2024 COMPR EHENS JAMILAH METAB OLIC PANEL alanine aminotransfe rase 26 IU/L 0-55 normal Not Available [address], [address], 02/02/2024 12:33:35 02/02/20 24 02/02/2024 COMPR EHENS JAMILAH METAB OLIC PANEL total protein 7.2 g/dL 6.0-8. 3 normal Not Available [address], [address], 02/02/2024 12:33:35 02/02/20 24 02/02/2024 COMPR EHENS JAMILAH METAB OLIC PANEL albumin 3.3 g/dL 2.8-5. 4 normal Not Available [address], [address], 02/02/2024 12:33:35 02/02/20 24 02/02/2024 COMPR EHENS JAMILAH METAB OLIC PANEL alkaline phosphatase 105 IU/L 40-150 normal Not Available [address], [address], 02/02/2024 12:33:35 02/02/20 24 02/02/2024 LIPID PANEL triglyceride s 77 mg/dL normal Debra l <=150 Debra l 150-1 99 Borde rline High 200-4 99 High >=500 Very High Not Available [address], [address], 02/02/2024 12:33:35 07/23/20 24 02/02/2024 LIPID PANEL cholesterol 168 mg/dL normal Edu able <200 Edu able 200-2 39 Borde rline High >=240 High Not Available [address], [address], 02/02/2024 12:33:35 02/02/20 24 02/02/2024 LIPID PANEL LDL cholesterol calculated 106 mg/dL normal Near Optim al <100 Optim al 100-1 29 Near optim al 130-1 59 Borde rline High 160-1 89 High >=190 Very High Not Available [address], [address], 02/02/2024 12:33:35 02/02/20 24 02/02/2024 LIPID PANEL HDL cholesterol 47 mg/dL 40- Not Available [address], [address], 02/02/2024 12:33:35 02/02/20 24 02/02/2024 THYRO ID STIMU LATIN G HORMO NE thyroid stimulating hormone 1.58 uIU/m L 0.35-4 .94 normal Not Available [address], [address], 02/02/2024 12:33:36 Result Notes None recorded. Problems Name Problem SNOMED Code Status Onset Date Resolution Date Notes Provider Name and Address Organization Details Recorded Time Allergic rhinitis 47318696 Active 2019 Gavin Thomson MD [address] [place] [address], [place], [address], [place] - PMA/WIP 0 12:02:22 Obesity 206236633 Active 2022 Gavin Thomson MD [address] [place] [address], [place], [address], [place] - PMA/WIP 3 09:03:19 Attention deficit hyperactivity disorder 971565809 Active 2023 Gavin Thomson MD [address] [place] [address], [place], [address], [place] - PMA/WIP 4 11:08:11 Essential hypertension 16839309 Active 2018 Gavin Thomson MD [address] [place] [address], [place] [address], [place], [address], [place] - PMA/WIP 9 14:42:20 Depressive disorder 96292658 Active 2018 Gavin Thomson MD [address] [place] [address], [place] [address], [place], [address], [place] - PMA/WIP 9 14:42:45 Anxiety 17325890 Active 2018 Gavin Thomson MD [address] [place] [address], [place] [address], [place], [address], [place] - PMA/WIP 9 14:42:52 Vitamin D deficiency 67537248 Active 2018 Gavin Thomson MD [address] [place] [address], [place] [address], [place], [address], [place] - PMA/WIP 9 14:43:13 Obstructive sleep apnea syndrome 32447727 Active 2018 on CPAP Gavin Thomson MD [address] [place] [address], [place], [address], [place] - PMA/WIP 9 14:43:42 Notes:Some problems listed i n Document: #[id number] could not be added to this patient's [...] Address Organization Details Last Updated DateTime 4 311206. 01 g 98 % 98 % 87 /min 150 mm[Hg] 102 mm[Hg] Celeste e Lou-be ach [place] - PMA/WIP 4 08:54:31 Date Recorded Body weight Oxygen saturation Oxygen saturation in Arterial blood by Pulse oximetry Heart rate Systolic blood pressure Diastolic blood pressure Provider Name and Address Organization Details Last Updated DateTime 4 986943. 11 g 98 % 98 % 73 /min 146 mm[Hg] 92 mm[Hg] Celeste hong Lou-be ach [place] - PMA/WIP 4 10:09:27 Date Recorded Systolic blood pressure Diastolic blood pressure Provider Name and Address Organization Details Last Updated DateTime 03/24/2024 132 mm[Hg] 80 mm[Hg] Gavin Thomson MD [address] [place] [address], [address], [place], [address], [place] - PMA/WIP 03/24/2024 10:28:47 Date Recorded Body weight Oxygen saturation Oxygen saturation in Arterial blood by Pulse oximetry Heart rate Systolic blood pressure Diastolic blood pressure Provider Name and Address Organization Details Last Updated DateTime 5 026540. 2 g 98 % 98 % 96 /min 120 mm[Hg] 80 mm[Hg] Celeste Benavidesles-be ach [place] - PMA/WIP 5 14:47:36 Date Recorded Body weight Oxygen saturation Oxygen saturation in Arterial blood by Pulse oximetry Heart rate Systolic blood pressure Diastolic blood pressure Provider Name and Address Organization Details Last Updated DateTime 5 790728. 05 g 95 % 95 % 82 /min 130 mm[Hg] 80 mm[Hg] Celeste Benavidesles-be ach [place] - PMA/WIP 5 14:36:13 Date Recorded Body weight Oxygen saturation Oxygen saturation in Arterial blood by Pulse oximetry Heart rate Systolic blood pressure Diastolic blood pressure Provider Name and Address Organization Details Last Updated DateTime 5 54479.5 4 g 97 % 97 % 75 /min 128 mm[Hg] 88 mm[Hg] Celeste Benavidesles-be ach [place] - PMA/WIP 5 08:29:09 Social History Question Answer Notes LastModified by Organizat ion Details LastModified Time Tobacco Smoking Status Never Smoker Not Available [facility] 04/26/2020 03:13:01 What Is Your Level Of Alcohol Consumption? None [email or web address] Information not available 12/05/2022 What Was The Date Of Your Most Recent Tobacco Screening? 01/18/2019 [id number] Information not available 04/26/2020 Sex: Female Functional [...] mcg/0.25mL dose 2 completed Gavin Thomson MD [address] [place] [address], [address], [place] - PMA/WIP 12/05/2022 08:17:49 COVID-19, mRNA, LNP-S, PF, 30 mcg/0.3 mL dose 1 completed Gavin Thomson MD [address] [place] [address], [address], [place] - PMA/WIP 12/05/2022 08:17:49 COVID-19, mRNA, LNP-S, PF, 30 mcg/0.3 mL dose 1 completed Gavin Thomson MD [address] [place] [address], [address], [place] - PMA/WIP 12/05/2022 08:17:49 Influenza, split virus, quadrivalent, preservative 9 completed Elvia vásquez, [place] - PMA/WIP 05/30/2019 09:12:53 Past Encounters Encounter ID Performer Location Encounter Start Date Encounter Closed Date Diagnosis/Indication Diagnosis SNOMED-CT Code Diagnosis ICD10 Code Diagnosis Note [id number] MD Sola Koch [place] [address] [place] [address] 01/18/2019 14:34:53 01/19/2019 08:15:20 Body mass index 30+ - obesity 541314923 Z68.42 diet reviewed; discussed weight loss sugery Essential hypertension 38154858 I10 hctz, diet Obstructiv e sleep apnea syndrome 75848931 G47.33 CPAP [id number] Gavin Thomson MD [address] [address] 05/30/2019 08:47:16 05/31/2019 07:30:50 Obstructive sleep apnea syndrome 63739153 G47.33 CPAP Depressive disorder 3548 9007 F32.9 f/u psych; fluoxetine Anxiety 38468886 F41.9 f/u psych; fluoxetine Essential hypertension 60648356 I10 hctz; low salt Vitamin D deficiency 347 31578 E55.9 check level [id number] Gavin Thomson MD [address] [address] 11/24/2019 10:13:22 11/24/2019 12:59:09 Depressive disorder 92192133 F32.9 f/u psych; fluoxetine Anxiety 88576007 F41.9 f/u psych; fluoxetine Obstructiv e sleep apnea syndrome 91589163 G47.33 CPAP Essential hypertension 84156932 I10 hctz; low salt Body mass index 30+ - obesity 045639810 Z68.42 diet reviewed; discussed weight loss sugery Exposure t o SARS-CoV-2 060502739 Z20.828 [id number] Gavin Thomson MD [address] [address] 04/10/2020 07:58:12 04/11/2020 14:33:04 Obstructive sleep apnea syndrome 72658136 G47.33 CPAP Anxiety 90258363 F41.9 f/u psych; fluoxetine Depressive disorder 3548 9007 F32.9 f/u psych; fluoxetine ; now with wellbutrin Essential hypertension 02258475 I10 hctz; low salt; check labs; Vitamin D deficiency 347 95531 E55.9 check level Body mass index 30+ - obesity 392690698 Z68.42 diet reviewed; discussed weight loss surgery Exposure t o SARS-CoV-2 545636831 Z2082 Gavin Thomson MD [place] [address] [place] [address] 10/04/2020 07:53:36 10/04/2020 10:08:31 Obstructive sleep apnea syndrome 20689753 G47.33 CPAP Vitamin D deficiency 347 41804 E55.9 check level Anxiety 43518015 F41.9 f/u psych; fluoxetine Essential hypertension 14062559 I10 hctz; low salt; check labs; Depressive disorder 3548 9007 F32.9 f/u psych; fluoxetine ; now with wellbutrin Body mass index 30+ - obesity 617171278 Z68.42 diet reviewed; discussed weight loss surgery [id number] Gavin Thomson MD [address] [place] [address] 08/19/2021 09:03:00 08/19/2021 10:18:49 Obstructive sleep apnea syndrome 62850639 G47.33 CPAP Vitamin D deficiency 347 50986 E55.9 check level Anxiety 30632365 F41.9 f/u psych; fluoxetine Depressive disorder 3548 9007 F32.9 f/u psych; fluoxetine ; now with wellbutrin Essential hypertension 60100927 I10 hctz; low salt; check labs; Allergic rhinitis 686220 04 J30.9 Impaired f asting glycemia 565359004 R73.01 [id number] Gavin Thomson MD [address] [place] [address] 12/05/2022 08:11:00 12/05/2022 09:07:09 Obstructive sleep apnea syndrome 97675730 G47.33 CPAP Anxiety 15202576 F41.9 f/u psych; fluoxetine Depressive disorder 3548 9007 F32.9 f/u psych; fluoxetine ; now with wellbutrin Essential hypertension 38084068 I10 hctz; low salt; check labs; Vitamin D deficiency 347 90705 E55.9 check level History an d physical examination, school 45236077 Z02.0 needs he;p B SABneeds viral titres orderednee ds IGRAobes Obesity 981771932 E66.9 diet discussed [id number] [facility] [place] [address] [place] [address] 02/04/2024 10:28:43 02/04/2024 12:15:32 Obesity 094236660 E66.9 diet discussed Obstructiv e sleep apnea syndrome 84544694 G47.33 CPAP Allergic rhinitis 967568 04 J30.9 Anxiety 10484505 F41.9 f/u psych; fluoxetine Essential hypertension 32101466 I10 hctz; low salt; check labs;bp checks on methylphen idate call with results Depressive disorder 3548 9007 F32.9 f/u psych; fluoxetine ; Attention deficit hyperactivity disorder 392318076 F90.9 continue psych therapy [id number] MD Sola Koch [address] [place] [address] 02/23/2024 08:52:23 02/23/2024 09:19:34 Attention deficit hyperactivity disorder 446857195 F90.9 continue psych therapy Obstructiv e sleep apnea syndrome 97896732 G47.33 CPAP Depressive disorder 3548 9007 F32.9 f/u psych; fluoxetine ; Essential hypertension 91546424 I10 add losartan 25 mgreduce to 12.5 mg prior: hctz; low salt; check labs;bp checks on methylphen idate call with results [id number] MD Sola Koch [address] [address] 03/24/2024 10:05:45 03/24/2024 10:30:54 Attention deficit hyperactivity disorder 547481482 F90.9 continue psych therapy Obesity 044673905 E66.9 diet discussed Obstructiv e sleep apnea syndrome 64682299 G47.33 CPAP Anxiety 68684128 F41.9 f/u psych; fluoxetine Essential hypertension 35652686 I10 add losartan 25 mgcontinue hctz at 25 mg prior: hctz; low salt; check labs;bp checks on methylphen idate call with results [id number] MD Sola Koch [address] [address] 08/09/2024 14:44:59 08/11/2024 08:04:12 Attention deficit hyperactivity disorder 334272139 F90.9 continue psych therapy Obesity 830701495 E66.9 diet discussed Obstructiv e sleep apnea syndrome 46772290 G47.33 CPAP Depressive disorder 3548 9007 F32.9 f/u psych; fluoxetine ; Essential hypertension 07912015 I10 add losartan 25 mgcontinue hctz at 25 mg prior: hctz; low salt; check labs;bp checks on methylphen idate call with results [id number] Gavin Thomson MD [address] [address] 08/30/2024 14:16:44 09/01/2024 13:10:38 Attention deficit hyperactivity disorder 016436616 F90.9 continue psych therapy Obesity 676460092 E66.9 diet discussed Obstructiv e sleep apnea syndrome 48959322 G47.33 CPAP Anxiety 35430657 F41.9 f/u psych; fluoxetine Depressive disorder 3548 9007 F32.9 f/u psych; fluoxetine ; Essential hypertension 57803929 I10 add losartan 25 mgcontinue hctz at 25 mg prior: hctz; low salt; check labs;bp checks on methylphen idate call with results [id number] Gavin Thomson MD [address] [address] 11/15/2024 08:26:57 11/15/2024 12:17:49 Attention deficit hyperactivity disorder 916511343 F90.9 continue psych therapy Obesity 686329960 E66.9 s/p gastri sleevediet discussed Obstructiv e sleep apnea syndrome 90928940 G47.33 CPAP Depressive disorder 3548 9007 F32.9 f/u psych; fluoxetine ; Essential hypertension 93364555 I10 add losartan 25 mgcontinue hctz at 25 mg prior: hctz; low salt; check labs;bp checks on methylphen idate call with results Anxiety 79404774 F41.9 f/u psych; fluoxetine Health Concerns Section Related Observation LastModified by Organization Detai ls LastModified Time None Recorded Concern Status LastModified by Organization Details LastModified Time None Recorded Advance Directives Directive None Recorded Payers Encounter Date Sequence Insurance Name Policy Number Policy Grewal Covered Member ID Grewal Member ID Guarantor Name 02/23/2024 1 [place] [id number] Mannie V Beron [id number] Beckie R Connorsberon 03/24/2024 1 [place] [id number] Mannie V Beron [id number] Beckie R Connorsberon 08/09/2024 1 [place] [id number] Mannie V Beron [id number] Beckie R Connorsberon 08/30/2024 1 [place] [id number] Mannie V Beron [id number] Beckie R Connorsberon 08/30/2024 2 [place] [facility] [id number] Beckie R Connorsberon [id number] Beckie R Connorsberon 11/15/2024 1 [place] [id number] Mannie V Beron [id number] Beckie R Connorsberon 11/15/2024 2 [place] [facility] [id number] Beckie R Connorsberon [id number] Beckie R Connorsberon Notes Date Note Type Note Provider Name and Address Organization Details Recorded Time 02/23/2024 text/html was doing well; but bp has been up;140's /90used to be lower;stopped taking 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;mo od is better on lexapro;on hctz 25; Gavin Thomson MD [address] [place] [address], [place], [address], [place] - PMA/WIP 02/23/2024 09:16:00 03/24/2024 text/html doing well; no prob with meds;on losartan 25 mg hctz 25 mgbp at home 125/72now on zyprexa 7.5fluoxetine 60 mg Gavin Thomson MD [address] [place] [address], [place], [address], [place] - PMA/WIP 03/24/2024 10:29:10 08/09/2024 text/html doing ok2 pets this month;tried concerta but choked on tabletsaw gi and had endoscopy for esophageal webbiopsy will have dilation done;had LEEP procedure done;start strattera tomorrow Gavin Thomson MD [address] [facility], [address], [place], [address], [place] - PMA/WIP 08/09/2024 15:18:49 08/30/2024 text/html wanting to lose weighthas been prescribed zepbound before but too expensivenow has new insuranceis considering bariatric surgeryhas lost 76 lbs through diet and exercise but weight loss has stopped Gavin Thomson MD [address] [place] [address], [address] [facility], [place], [address], [place] - PMA/WIP 09/01/2024 13:06:39 11/15/2024 text/html wanting to lose weighthas been prescribed zepbound before but too expensivenow has new insuranceis considering bariatric surgeryhas lost 76 lbs through diet and exercise but weight loss has stopped did not start zepboundhad gastric sleeve 5 days a GODOING WELLtakes 2 ml every minute of fluid while awake Gavin Thomson MD [address] [place] [address], [address], [place], [address], [place] - PMA/WIP 11/15/2024 12:12:35 OBGyn Episode No OBEpisode recorded.
== END 2024-11-16 14:14 | disposition home or self-care (01) ==
LOC: HO.HBST 13:15
PROVIDERS: PCP Family Medicine; Visit Provider Counselor Mental Health
DX: F31.81 Bipolar II disorder (principal); Z98.84 Bariatric surgery status
CPT/HCPCS: 90834

== ENCOUNTER 2024-11-17 13:15 | Outpatient (AMB) | payer BC, SELFPAY ==
--- NOTE | 2024-11-17 13:20 | MHC.OFFVISWM ---
VS Expanded 11/17/24 13:31 BP 124/74 Blood Pressure Location Rt brachial Blood Pressure Position Sitting Pulse 86 Pulse Source Pulse Oximeter Temp 97.8 F Temperature Source Temporal Artery Scan Pulse Oximetry 97 Oxygen Delivery Method Room Air Height 5 ft 6 in Weight 206 lb BMI 33.2 Body Fat % 40.4 Body Fat Mass 83.2 Fat Free Mass 122.8 Visceral Fat Rating 8.0 Body Water % 42.7 Body Water Mass 8.0 Muscle Mass/Score 116.6 Basal Metabolic Rate/Score 1,718 Intake Visit Reasons: (OV) PO LSG 11/10/24 Allergies pollen extracts Allergy (Intermediate, Verified 11/10/24 06:15) Itchy Eyes HPI Comments Details: 33-year-old female returns to the office today in follow-up. She is 7 days post sleeve gastrectomy performed on 11/10/2024. She is tolerating 3 Atkins 30 g shakes, 4 oz with 4 oz of almond milk at 10-12, 2-4, 6-8. She is taking in a proximally 50 oz of fluids She has moved her bowels. She offers no significant complaints. [facility] Medical History (Updated 11/10/24 @ 12:34 by Ralph Pinon MD) Gastritis Bipolar 1 disorder Kidney stone Peptic ulcer Back pain GERD (gastroesophageal reflux disease) Anxiety Depression Obstructive sleep apnea on CPAP Hypertension Morbid obesity Surgical History (Updated 11/17/24 @ 13:33 by Ibis Arora CMA) S/P laparoscopic sleeve gastrectomy History of esophagogastroduodenoscopy (EGD) History of elective Hx of wisdom tooth extraction Family History Paternal Grandmother Colon cancer Maternal Grandmother Breast cancer Paternal Aunt Cervical cancer Paternal Grandfather Mesothelioma Social History Household Members: Spouse Housing: House Are you a primary physician assistant primary care to a significant other at home: No Do you presently have visiting nurse or other home services: No Alcohol intake: current Alcohol intake frequency: holidays/special occasions only Alcohol type: other Patient Tobacco Use Status: Never used Tobacco Physical Exam GI Inspection: Yes incision (Clean, dry, intact.) Assessment & Plan Assessment & Plan (1) S/P laparoscopic sleeve gastrectomy: Code(s): Z98.84 - Bariatric surgery status Category: Surgical Plan: POD 7 s/p LSG on 11/10/[address] Pinon Weight loss prior to surgery was 100.6 pounds or 31.1 % TBWL. Original weight on 04/08/2024 was 323 pounds and op weight was 222.4 pounds. Be sure to text Dr Pinon exactly 1 week after surgery your weight from your home scale so he can adjust your meal plan. Continue meal plan until f/u sindi Monson in 2 weeks May shower, no submersion in bath for another week Continue abdominal binder with activity and exercise for the next 2 weeks. Exercise prior to surgery was treadmill and may resume No abdominal exercises for 6 weeks post operatively Will be emailed link to post op video for review Reminded of the pace of drinking, 2 mL per minute, 1 oz/15 min.
[2024-11-17 13:31] VITALS: BP 124/74; PULSE 86; TEMP 36.6; O2SAT 97; BMI 33.2
== END 2024-11-17 13:59 | disposition home or self-care (01) ==
PROVIDERS: PCP Internal Medicine; Visit Provider Physician Assistant Surgical
DX: Z98.84 Bariatric surgery status (principal)
CPT/HCPCS: 99024

== ENCOUNTER 2024-12-06 13:15 | Outpatient (AMB) | payer BC, SELFPAY ==
--- NOTE | 2024-12-06 13:17 | MHC.OFFVISWM ---
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 Presents for 3 week post op visit. Weight today is 198.2 pounds, with a BMI of 32. There has been a 124.8 pound weight loss,(initial weight 323 pounds) since starting the program on 04/08/2024 reflecting a 38.6 % total body weight loss and a weight loss of 23.9 pounds since surgery (operative weight 222.1 pounds) reflecting a 10.7 % TBWL since surgery. No complaints of nausea, emesis, abdominal pain or reflux. Reports infrequent but normal bowel movements every 2-3 days and uses stool softeners regularly. Improved w miralax Present meal plan includes: Atkins RTD shake 8-10 Atkins bar 11-1 shake 2-4 meal at 5 pm with 3 forks cottage chees bar 7-9 drinking 60 oz fluids Exercise routine includes: treadmill daily 400-800 ann [facility] Medical History (Updated 11/19/24 @ 00:02 by Background Daemon) BMI 34.0-34.9,adult Gastritis Bipolar 1 disorder Kidney stone Peptic ulcer Back pain GERD (gastroesophageal reflux disease) Anxiety Depression Obstructive sleep apnea on CPAP Hypertension Morbid obesity Surgical History S/P laparoscopic sleeve gastrectomy History of esophagogastroduodenoscopy (EGD) History of elective Hx of wisdom tooth extraction Family History Paternal Grandmother Colon cancer Maternal Grandmother Breast cancer Paternal Aunt Cervical cancer Paternal Grandfather Mesothelioma Social History Household Members: Spouse Housing: House Are you a primary urgent care technician to a significant other at home: No Do you presently have visiting nurse or other home services: No Alcohol intake: current Alcohol intake frequency: holidays/special occasions only Alcohol type: other Patient Tobacco Use Status: Never used Tobacco Physical Exam Const General: healthy appearing and no acute distress Resp Effort & Inspection: normal respiratory effort Auscultation: clear to auscultation bilaterally Cardio Rate: regular rate Rhythm: regular rhythm GI Auscultation: normal bowel sounds Extrem General: Yes normal to inspection Assessment & Plan Assessment & Plan (1) S/P laparoscopic sleeve gastrectomy: Code(s): Z98.84 - Bariatric surgery status Category: Surgical Plan: Patient is doing very well. She has lost over 100 lb so far. She is continuing to follow the meal plan exactly. She did however start an oral control medication without discussing with Dr. Pinon. She will text him to make him aware. Additionally, she will continue to text with him regarding her meal plan. She will continue to exercise as she has been doing. We will have her return to the office in approximately 1 month.
--- OUTSIDE RECORDS SUMMARY | 2024-12-06 13:18 | XMS_ITS | Data Portability ---
Author Organization [facility], DOT Address [address] [place] [address] Assessment No assessment recorded. Plan of Treatment Reminders Order Date Submit Date Provider Last Modified By Organization Details Last Modified Time Details Appointments None recorded. Lab None recorded. Referral None recorded. Procedures None recorded. Surgeries None recorded. Imaging None recorded. Medication Orders Zepbound 2.5 mg/0.5 mL subcutaneou s pen injector 2024 025 [facility], [address] [place] [address], [address], 08:43:59 losartan 25 mg tablet 2023 024 [facility], [address] [place] [address], [address], 09:15:15 Patient TargetsNo targets recorded. Patient InstructionsNo instructions recorded. Reason for Referral None Reported. Results Created Date Observation Date Name Description Value Unit Range Abnormal Flag Note LastModifiedBy Organization Detail LastModifiedTime 02/02/2002/02/2024 COMPL ETE BLOOD COUNT W/ DIFF white blood count 12.4 K/mm3 4.0-11 .0 high Not Available [address], [address], 02/02/2024 11:27:43 02/02/20 24 02/02/2024 COMPL ETE BLOOD COUNT W/ DIFF red blood count 4.76 M/uL 4.00-5 .50 normal Not Available [address], [address], 02/02/2024 11:27:43 02/02/20 24 02/02/2024 COMPL ETE BLOOD COUNT W/ DIFF hemoglobin 13.6 gm/dL 12.0-1 6.0 normal Not Available [address], [address], 02/02/2024 11:27:43 02/02/20 24 02/02/2024 COMPL ETE BLOOD COUNT W/ DIFF hematocrit 43.8 % 37.0-4 7.0 normal Not Available [address], [address], 02/02/2024 11:27:43 02/02/20 24 02/02/2024 COMPL ETE BLOOD COUNT W/ DIFF mean corpuscular volume 92.0 fL 80.0-1 00.0 normal Not Available [address], [address], 02/02/2024 11:27:43 02/02/20 24 02/02/2024 COMPL ETE BLOOD COUNT W/ DIFF MCHC 31.1 % 32-37 low Not Available [address], [address], 02/02/2024 11:27:43 02/02/20 24 02/02/2024 COMPL ETE BLOOD COUNT W/ DIFF red cell distribution width 13.6 % 11.5-1 6.0 normal Not Available [address], [address], 02/02/2024 11:27:43 02/02/20 24 02/02/2024 COMPL ETE BLOOD COUNT W/ DIFF platelet count 398 K/uL 140-40 0 normal Not Available [address], [address], 02/02/2024 11:27:43 02/02/20 24 02/02/2024 COMPL ETE BLOOD COUNT W/ DIFF mean platelet volume 10.1 fL 8.6-12 .5 normal Not Available [address] [place], [address], 02/02/2024 11:27:43 02/02/20 24 02/02/2024 COMPL ETE BLOOD COUNT W/ DIFF %nucleated RBC auto 0.0 % 0.0-0. 7 normal Not Available [address], [address], 02/02/2024 11:27:43 02/02/20 24 02/02/2024 COMPL ETE BLOOD COUNT W/ DIFF %neutrophils auto 65.3 % Not Available [address], [address], 02/02/2024 11:27:43 02/02/20 24 02/02/2024 COMPL ETE BLOOD COUNT W/ DIFF %lymphocytes auto 27.6 % Not Available [address], [address], 02/02/2024 11:27:43 02/02/20 24 02/02/2024 COMPL ETE BLOOD COUNT W/ DIFF %monocytes auto 5.1 % Not Available [address], [address], 02/02/2024 11:27:43 02/02/20 24 02/02/2024 COMPL ETE BLOOD COUNT W/ DIFF %eosinophils auto 1.4 % Not Available [address], [address], 02/02/2024 11:27:43 02/02/20 24 02/02/2024 COMPL ETE BLOOD COUNT W/ DIFF %basophils auto 0.3 % Not Available [address], [address], 02/02/2024 11:27:43 02/02/20 24 02/02/2024 COMPL ETE BLOOD COUNT W/ DIFF %immature granulocytes auto 0.3 % Not Available [address], [address], 02/02/2024 11:27:43 02/02/20 24 02/02/2024 COMPL ETE BLOOD COUNT W/ DIFF #neutrophils auto 8.11 K/uL 1.50-7 .50 high Not Available [address], [address], 02/02/2024 11:27:43 02/02/20 24 02/02/2024 COMPL ETE BLOOD COUNT W/ DIFF #lymphocytes auto 3.42 K/uL 1.00-4 .50 normal Not Available [address], [address], 02/02/2024 11:27:43 02/02/20 24 02/02/2024 COMPL ETE BLOOD COUNT W/ DIFF #monocytes auto 0.63 K/uL 0.00-0 .80 normal Not Available [address], [address], 02/02/2024 11:27:43 02/02/20 24 02/02/2024 COMPL ETE BLOOD COUNT W/ DIFF #eosinophils auto 0.17 K/uL 0.00-0 .40 normal Not Available [address], [address], 02/02/2024 11:27:43 02/02/20 24 02/02/2024 COMPL ETE BLOOD COUNT W/ DIFF #basophils auto 0.04 K/uL 0.00-0 .20 normal Not Available [address], [address], 02/02/2024 11:27:43 02/02/20 24 02/02/2024 COMPL ETE BLOOD COUNT W/ DIFF #immature granulocytes auto 0.04 K/uL 0.00-0 .10 normal Not Available [address], [address], 02/02/2024 11:27:43 02/02/20 24 02/02/2024 COMPR EHENS JAMILAH METAB OLIC PANEL sodium 139 mEq/L 133-14 5 normal Not Available [address], [address], 02/02/2024 12:33:35 02/02/20 24 02/02/2024 COMPR EHENS JAMILAH METAB OLIC PANEL potassium 4.5 mEq/L 3.5-5. 1 normal Not Available [address], [address], 02/02/2024 12:33:35 02/02/20 24 02/02/2024 COMPR EHENS JAMILAH METAB OLIC PANEL chloride 104 mEq/L 98-112 normal Pleas e note new refer ence range . Not Available [address], [address], 02/02/2024 12:33:35 02/02/20 24 02/02/2024 COMPR EHENS JAMILAH METAB OLIC PANEL carbon dioxide 27 mEq/L 22-31 normal Not Available [address], [address], 02/02/2024 12:33:35 02/02/20 24 02/02/2024 COMPR EHENS JAMILAH METAB OLIC PANEL anion gap 8 mEq/L 5-15 normal Not Available [address], [address], 02/02/2024 12:33:35 02/02/20 24 02/02/2024 COMPR EHENS JAMILAH METAB OLIC PANEL blood urea nitrogen (BUN) 8 mg/dL 7-19 normal Not Available [address], [address], 02/02/2024 12:33:35 02/02/20 24 02/02/2024 COMPR EHENS JAMILAH METAB OLIC PANEL creatinine 0.84 mg/dL 0.50-1 .02 normal Not Available [address], [address], 02/02/2024 12:33:35 02/02/20 24 02/02/2024 COMPR EHENS [...] G5 (kidn ey failu re). Not Available [address], [address], 02/02/2024 12:33:35 02/02/20 24 02/02/2024 COMPR EHENS JAMILAH METAB OLIC PANEL glucose 82 mg/dL 70-100 normal Fasti ng Refer ence Inter norma: 70-10 0mg/d L Non-f astin g Refer ence Inter norma: 70-14 0mg/d L Not Available [address], [address], 02/02/2024 12:33:35 02/02/20 24 02/02/2024 COMPR EHENS JAMILAH METAB OLIC PANEL calcium 9.2 mg/dL 8.4-10 .4 normal Not Available [address], [address], 02/02/2024 12:33:35 02/02/20 24 02/02/2024 COMPR EHENS JAMILAH METAB OLIC PANEL bilirubin total 0.8 mg/dL 0.2-1. 2 normal Not Available [address], [address], 02/02/2024 12:33:35 02/02/20 24 02/02/2024 COMPR EHENS JAMILAH METAB OLIC PANEL aspartate amino transferase 22 IU/L 5-34 normal Not Available [address], [address], 02/02/2024 12:33:35 02/02/20 24 02/02/2024 COMPR EHENS JAMILAH METAB OLIC PANEL alanine aminotransfe rase 26 IU/L 0-55 normal Not Available [address], [address], 02/02/2024 12:33:35 02/02/20 24 02/02/2024 COMPR EHENS JAMILAH METAB OLIC PANEL total protein 7.2 g/dL 6.0-8. 3 normal Not Available [address], [address], 02/02/2024 12:33:35 02/02/20 24 02/02/2024 COMPR EHENS JAMILAH METAB OLIC PANEL albumin 3.3 g/dL 2.8-5. 4 normal Not Available [address], [address], 02/02/2024 12:33:35 02/02/20 24 02/02/2024 COMPR EHENS JAMILAH METAB OLIC PANEL alkaline phosphatase 105 IU/L 40-150 normal Not Available [address], [address], 02/02/2024 12:33:35 02/02/20 24 02/02/2024 LIPID PANEL triglyceride s 77 mg/dL normal Debra l <=150 Debra l 150-1 99 Borde rline High 200-4 99 High >=500 Very High Not Available [address], [address], 02/02/2024 12:33:35 07/23/20 24 02/02/2024 LIPID PANEL cholesterol 168 mg/dL normal Edu able <200 Edu able 200-2 39 Borde rline High >=240 High Not Available [address], [address], 02/02/2024 12:33:35 02/02/20 24 02/02/2024 LIPID PANEL LDL cholesterol calculated 106 mg/dL normal Near Optim al <100 Optim al 100-1 29 Near optim al 130-1 59 Borde rline High 160-1 89 High >=190 Very High Not Available [address], [address], 02/02/2024 12:33:35 02/02/20 24 02/02/2024 LIPID PANEL HDL cholesterol 47 mg/dL 40- Not Available [address], [address], 02/02/2024 12:33:35 02/02/20 24 02/02/2024 THYRO ID STIMU LATIN G HORMO NE thyroid stimulating hormone 1.58 uIU/m L 0.35-4 .94 normal Not Available [address], [address], 02/02/2024 12:33:36 Result Notes None recorded. Problems Name Problem SNOMED Code Status Onset Date Resolution Date Notes Provider Name and Address Organization Details Recorded Time Allergic rhinitis 76167842 Active 2019 Gavin Thomson MD [address] [place] [address], [place], [address], [place] - PMA/WIP 0 12:02:22 Obesity 284724221 Active 2022 Gavin Thomson MD [address] [place] [address], [place], [address], [place] P[place]IP 3 09:03:19 Attention deficit hyperactivity disorder 186463792 Active 2023 Gavin Thomson MD [address] [place] [address], [place], [address], [place] PMA/WIP 4 11:08:11 Essential hypertension 98026838 Active 2018 Gavin Thomson MD [address] [place] [address], [place] [address], [place], [address], [place] - PMA/WIP 9 14:42:20 Depressive disorder 34107622 Active 2018 Gavin Thomson MD [address] [place] [address], [place] [address], [place], [address], [place] - PMA/WIP 9 14:42:45 Anxiety 46595554 Active 2018 Gavin Thomson MD [address] [place] [address], [place] [address], [place], [address], [place] - PMA/WIP 9 14:42:52 Vitamin D deficiency 02446009 Active 2018 Gavin Thomson MD [address] [place] [address], [place] [address], [place], [address], [place] - PMA/WIP 9 14:43:13 Obstructive sleep apnea syndrome 56516623 Active 2018 on CPAP Gavin Thomson MD [address] [place] [address], [place], [address], [place] - PMA/WIP 9 14:43:42 Notes:Some problems listed i n Document: #[id number] could not be added to this patient's [...] Available Not Available losartan 25 mg tablet Take 1 tablet by mouth once daily 2024 active Not Available Not Available Not Avai lable bupropion HCl 75 mg tablet TAKE 1 TABLET BY MOUTH TWICE DAILY 02/03 completed Not Available Not Available Not Available hydrochloro thiazide 25 mg tablet Take 1 tablet by mouth once daily 2024 active Not Available Not Available Not Avai lable polyethylen e glycol 3350 17 gram/dose oral [...] blood by Pulse oximetry Heart rate Systolic And Diastolic Provider Name and Address Organization Details Last Updated DateTime 5 969402. 2 g 98 % 98 % 96 /min 120/80 mm[Hg] Celeste Lou-be [facility] [place] - PMA/WIP 5 14:47:36 Date Recorded Body weight Oxygen saturation Oxygen saturation in Arterial blood by Pulse oximetry Heart rate Systolic And Diastolic Provider Name and Address Organization Details Last Updated DateTime 5 539796. 05 g 95 % 95 % 82 /min 130/80 mm[Hg] Celeste Benavidesles-be [facility] [place] - PMA/WIP 5 14:36:13 Date Recorded Body weight Oxygen saturation Oxygen saturation in Arterial blood by Pulse oximetry Heart rate Systolic And Diastolic Provider Name and Address Organization Details Last Updated DateTime 5 50977.5 4 g 97 % 97 % 75 /min 128/88 mm[Hg] Celeste Lou-be [facility] [place] - PMA/WIP 5 08:29:09 Date Recorded Body weight Oxygen saturation Oxygen saturation in Arterial blood by Pulse oximetry Heart rate Systolic And Diastolic Provider Name and Address Organization Details Last Updated DateTime 4 038609. 01 g 98 % 98 % 87 /min 150/102 mm[Hg] Celeste Lou-be [facility] [place] - PMA/WIP 4 08:54:31 Date Recorded Systolic And Diastolic Provider Name and Address Organization Details Last Updated DateTime 03/24/2024 132/80 mm[Hg] Gavin Thomson MD [address] [place] [address], [address], [place], [address], [place] - PMA/WIP 03/24/2024 10:28:47 Date Recorded Body weight Oxygen saturation Oxygen saturation in Arterial blood by Pulse oximetry Heart rate Systolic And Diastolic Provider Name and Address Organization Details Last Updated DateTime 4 871379. 11 g 98 % 98 % 73 /min 146/92 mm[Hg] Celeste Lou-[facility] [place] - PMA/WIP 4 10:09:27 Social History Question Answer Notes LastModified by Organizat ion Details LastModified Time Tobacco Smoking Status Never Smoker Not Available [employer] 04/26/2020 03:13:01 What Was The Date Of Your Most Recent Tobacco Screening? 01/18/2019 [id number] Information not available 04/26/2020 Sex: Female Functional Status Question Answer Note LastModified by Organization D etails LastModified Time What is your level of alcohol consumption? None [email or web address] Information not available 12/05/2022 Mental Status None recorded. Family History Relationship [...] mcg/0.25mL dose 2 completed Gavin Thomson MD [address] [place] [address], [address], [place] - PMA/WIP 12/05/2022 08:17:49 COVID-19, mRNA, LNP-S, PF, 30 mcg/0.3 mL dose 1 completed Gavin Thomson MD [address] [place] [address], [address], [place] - PMA/WIP 12/05/2022 08:17:49 COVID-19, mRNA, LNP-S, PF, 30 mcg/0.3 mL dose 1 completed Gavin Thomson MD [address] [place] [address], [address], [place] - PMA/WIP 12/05/2022 08:17:49 Influenza, split virus, quadrivalent, preservative 9 completed Elvia vásquez, [place] - PMA/WIP 05/30/2019 09:12:53 Past Encounters Encounter ID Performer Location Encounter Start Date Encounter Closed Date Diagnosis/Indication Diagnosis SNOMED-CT Code Diagnosis ICD10 Code Diagnosis Note [id number] MD Sola [place] [address] [place] [address] 01/18/2019 14:34:53 01/19/2019 08:15:20 Body mass index 30+ - obesity 854175391 Z68.42 diet reviewed; discussed weight loss sugery Essential hypertension 61665243 I10 hctz, diet Obstructiv e sleep apnea syndrome 68722425 G47.33 CPAP [id number] Gavin Thomson MD [address] [address] 05/30/2019 08:47:16 05/31/2019 07:30:50 Obstructive sleep apnea syndrome 12746657 G47.33 CPAP Depressive disorder 3548 9007 F32.9 f/u psych; fluoxetine Anxiety 42582821 F41.9 f/u psych; fluoxetine Essential hypertension 17290702 I10 hctz; low salt Vitamin D deficiency 347 13630 E55.9 check level [id number] Gavin Thomson MD [address] [address] 11/24/2019 10:13:22 11/24/2019 12:59:09 Depressive disorder 26099545 F32.9 f/u psych; fluoxetine Anxiety 81667465 F41.9 f/u psych; fluoxetine Obstructiv e sleep apnea syndrome 32948906 G47.33 CPAP Essential hypertension 64832410 I10 hctz; low salt Body mass index 30+ - obesity 281735957 Z68.42 diet reviewed; discussed weight loss sugery Exposure t o SARS-CoV-2 128940788 Z20828 [id number] Gavin Thomson MD [address] [address] 04/10/2020 07:58:12 04/11/2020 14:33:04 Obstructive sleep apnea syndrome 87420627 G47.33 CPAP Anxiety 69081531 F41.9 f/u psych; fluoxetine Depressive disorder 3548 9007 F32.9 f/u psych; fluoxetine ; now with wellbutrin Essential hypertension 86557073 I10 hctz; low salt; check labs; Vitamin D deficiency 347 22778 E55.9 check level Body mass index 30+ - obesity 348199001 Z68.42 diet reviewed; discussed weight loss surgery Exposure t o SARS-CoV-2 259146119 [id number] Gavin Thomson MD [facility] [place] [address] [place] [address] 10/04/2020 07:53:36 10/04/2020 10:08:31 Obstructive sleep apnea syndrome 74802923 G47.33 CPAP Vitamin D deficiency 347 99059 E55.9 check level Anxiety 15630571 F41.9 f/u psych; fluoxetine Essential hypertension 99548383 I10 hctz; low salt; check labs; Depressive disorder 3548 9007 F32.9 f/u psych; fluoxetine ; now with wellbutrin Body mass index 30+ - obesity 741662761 Z68.42 diet reviewed; discussed weight loss surgery [id number] Gavin Thomson MD [address] [address] 08/19/2021 09:03:00 08/19/2021 10:18:49 Obstructive sleep apnea syndrome 57163199 G47.33 CPAP Vitamin D deficiency 347 24970 E55.9 check level Anxiety 80842006 F41.9 f/u psych; fluoxetine Depressive disorder 3548 9007 F32.9 f/u psych; fluoxetine ; now with wellbutrin Essential hypertension 47106112 I10 hctz; low salt; check labs; Allergic rhinitis 225101 04 J30.9 Impaired f asting glycemia 131155114 R73.01 [id number] Gavin Thomson MD [address] [address] 12/05/2022 08:11:00 12/05/2022 09:07:09 Obstructive sleep apnea syndrome 01307640 G47.33 CPAP Anxiety 99657727 F41.9 f/u psych; fluoxetine Depressive disorder 3548 9007 F32.9 f/u psych; fluoxetine ; now with wellbutrin Essential hypertension 50829036 I10 hctz; low salt; check labs; Vitamin D deficiency 347 72445 E55.9 check level History an d physical examination, school 46667691 Z02.0 needs he;p B SABneeds viral titres orderednee ds IGRAobes Obesity 463150994 E66.9 diet discussed [id number] Gavin Thomson MD [facility] [place] [address] [address] 02/04/2024 10:28:43 02/04/2024 12:15:32 Obesity 625929993 E66.9 diet discussed Obstructiv e sleep apnea syndrome 10410101 G47.33 CPAP Allergic rhinitis 131661 04 J30.9 Anxiety 22024846 F41.9 f/u psych; fluoxetine Essential hypertension 51915132 I10 hctz; low salt; check labs;bp checks on methylphen idate call with results Depressive disorder 3548 9007 F32.9 f/u psych; fluoxetine ; Attention deficit hyperactivity disorder 914624705 F90.9 continue psych therapy [id number] Gavin Thomson MD [facility] [place] [address] [place] [address] 02/23/2024 08:52:23 02/23/2024 09:19:34 Attention deficit hyperactivity disorder 919542857 F90.9 continue psych therapy Obstructiv e sleep apnea syndrome 26517128 G47.33 CPAP Depressive disorder 3548 9007 F32.9 f/u psych; fluoxetine ; Essential hypertension 84374008 I10 add losartan 25 mgreduce to 12.5 mg prior: hctz; low salt; check labs;bp checks on methylphen idate call with results [id number] Gavin Thomson MD [facility] [place] [address] [place] [address] 03/24/2024 10:05:45 03/24/2024 10:30:54 Attention deficit hyperactivity disorder 556066203 F90.9 continue psych therapy Obesity 961941925 E66.9 diet discussed Obstructiv e sleep apnea syndrome 76464718 G47.33 CPAP Anxiety 27360404 F41.9 f/u psych; fluoxetine Essential hypertension 01623422 I10 add losartan 25 mgcontinue hctz at 25 mg prior: hctz; low salt; check labs;bp checks on methylphen idate call with results [id number] Gavin Thomson MD [facility] [place] [address] [place] [address] 08/09/2024 14:44:59 08/11/2024 08:04:12 Attention deficit hyperactivity disorder 690886694 F90.9 continue psych therapy Obesity 231850068 E66.9 diet discussed Obstructiv e sleep apnea syndrome 70968976 G47.33 CPAP Depressive disorder 3548 9007 F32.9 f/u psych; fluoxetine ; Essential hypertension 88074060 I10 add losartan 25 mgcontinue hctz at 25 mg prior: hctz; low salt; check labs;bp checks on methylphen idate call with results [id number] Gavin Thomson MD [address] [address] 08/30/2024 14:16:44 09/01/2024 13:10:38 Attention deficit hyperactivity disorder 265637477 F90.9 continue psych therapy Obesity 702934880 E66.9 diet discussed Obstructiv e sleep apnea syndrome 02490876 G47.33 CPAP Anxiety 49953117 F41.9 f/u psych; fluoxetine Depressive disorder 3548 9007 F32.9 f/u psych; fluoxetine ; Essential hypertension 59472675 I10 add losartan 25 mgcontinue hctz at 25 mg prior: hctz; low salt; check labs;bp checks on methylphen idate call with results [id number] Gavin Thomson MD [address] [address] 11/15/2024 08:26:57 11/15/2024 12:17:49 Attention deficit hyperactivity disorder 175235544 F90.9 continue psych therapy Obesity 620903885 E66.9 s/p gastri sleevediet discussed Obstructiv e sleep apnea syndrome 04066710 G47.33 CPAP Depressive disorder 3548 9007 F32.9 f/u psych; fluoxetine ; Essential hypertension 41100818 I10 add losartan 25 mgcontinue hctz at 25 mg prior: hctz; low salt; check labs;bp checks on methylphen idate call with results Anxiety 77257753 F41.9 f/u psych; fluoxetine Health Concerns Section Related Observation LastModified by Organization Detai ls LastModified Time None Recorded Concern Status LastModified by Organization Details LastModified Time None Recorded Advance Directives Directive None Recorded Payers Encounter Date Sequence Insurance Name Policy Number Policy Grewal Covered Member ID Grewal Member ID Guarantor Name 02/23/2024 1 [employer] (PPO) [id number] Mannie V Beron [id number] Beckie R Connorsberon 03/24/2024 1 [place] [id number] Mannie V Beron [id number] Beckie R Connorsberon 08/09/2024 1 [place] [id number] Mannie V Beron [id number] Beckie R Connorsberon 08/30/2024 1 [place] [id number] Mannie V Beron [id number] Beckie R Connorsberon 08/30/2024 2 [place] [facility] [id number] Beckie R Connorsberon [id number] Beckie R Connorsberon 11/15/2024 1 [place] [id number] Mannie V Beron [id number] Beckie R Connorsberon 11/15/2024 2 [place] [facility] [id number] Beckie R Connorsberon [id number] Beckie R Connorsberon Notes Date Note Type Note Provider Name and Address Organization Details Recorded Time 02/23/2024 text/html was doing well; but bp has been up;140's /90used to be lower;stopped taking 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;mo od is better on lexapro;on hctz 25; Gavin Thomson MD [address] [place] [address], [place], [address], [facility] PMA/WIP 02/23/2024 09:16:00 03/24/2024 text/html doing well; no prob with meds;on losartan 25 mg hctz 25 mgbp at home 125/72now on zyprexa 7.5fluoxetine 60 mg Gavin Thomson MD [address] [place] [address], [place] [address], [place], [address], [facility] - PMA/WIP 03/24/2024 10:29:10 08/09/2024 text/html doing ok2 pets this month;tried concerta but choked on tabletsaw gi and had endoscopy for esophageal webbiopsy will have dilation done;had LEEP procedure done;start strattera tomorrow Gavin Thomson MD [address] [place] [address], [address], [place], [address], [place] - PMA/WIP 08/09/2024 15:18:49 08/30/2024 text/html wanting to lose weighthas been prescribed zepbound before but too expensivenow has new insuranceis considering bariatric surgeryhas lost 76 lbs through diet and exercise but weight loss has stopped Gavin Thomson MD [address] [place] [address], [address], [place], [address], [place] - PMA/WIP 09/01/2024 13:06:39 11/15/2024 text/html wanting to lose weighthas been prescribed zepbound before but too expensivenow has new insuranceis considering bariatric surgeryhas lost 76 lbs through diet and exercise but weight loss has stopped did not start zepboundhad gastric sleeve 5 days a GODOING WELLtakes 2 ml every minute of fluid while awake Gavin Thomson MD [address] [facility], [address], [place], [address], [place] - PMA/WIP 11/15/2024 12:12:35 OBGyn Episode No OBEpisode recorded.
[2024-12-06 13:46] VITALS: BP 120/85; PULSE 72; TEMP 36.7; O2SAT 98; BMI 32.0
== END 2024-12-06 14:15 | disposition home or self-care (01) ==
LOC: HO.HBS 13:15
PROVIDERS: PCP Internal Medicine; Visit Provider Physician Assistant Surgical
DX: Z98.84 Bariatric surgery status (principal)
CPT/HCPCS: 99024

== ENCOUNTER 2025-01-04 11:24 | Outpatient (AMB) | payer BC, SELFPAY ==
[2025-01-04 08:13] VITALS: BMI 29.4
--- NOTE | 2025-01-04 08:13 | A.OFFVIS_ITS ---
VS Expanded 01/04/25 08:13 Height 5 ft 6 in Weight 182 lb 6 oz BMI 29.4 Body Fat % 34.8 Fat Free Mass 118.9 Visceral Fat Rating 11 Body Water % 44.6 Muscle Mass/Score 111.8 Basal Metabolic Rate/Score 1,575 Intake Visit Reasons: TV PO LSG 11/10/24 Valve Pipe Irrigator Required: No Allergies pollen extracts Allergy (Intermediate, Verified 12/06/24 13:35) Itchy Eyes Medication List - Last Reconciled 01/04/25 by BHUMIKA Mcgregor drospirenone-ethinyl estradiol 3-0.02 mg (MARGARET (28)) 1 tab PO DAILY fluoxetine (Prozac) 80 mg PO BEDTIME lurasidone 40 mg PO BEDTIME modafinil 100 mg PO DAILY pantoprazole 40 mg PO DAILY propranolol 10 mg PO TID PRN spironolactone 50 mg PO BID sucralfate 10 mL PO BID trazodone 75 mg PO BEDTIME PRN HPI Comments Details: This?a?34?yo female who is s/p LSG without hiatal hernia repair on?11/10/2024. Presents for 2 month post op visit. Weight today is 182.6 pounds, with a BMI of 29.4. There has been a 140.4 pound weight loss,(initial weight 323 pounds) since starting the program on 04/08/2024 reflecting a 43.4 % total body weight loss and a weight loss of 39.5 pounds since surgery (operative weight 222.1 pounds) reflecting a 17.7 % TBWL since surgery. No complaints of nausea, emesis, abdominal pain or reflux. Reports infrequent but normal bowel movements every 2-3 days and uses stool softeners regularly. Improved w miralax. Feels great about the weight loss although fatigue continues. Mood improved. Present meal plan includes: Atkins RTD shake 6 oz 8-10 Atkins bar 11-1 entire shake 2-4 meal at 5 pm with 3 forks protein and 3 forks veg 1/2 bar 7-9 drinking 60 oz fluids Exercise routine includes: treadmill daily 100 min, 1000 ann, speed 3.5, incline 4-10 [facility] Medical History (Updated 11/19/24 @ 00:02 by Background Danni) BMI 34.0-34.9,adult Gastritis Bipolar 1 disorder Kidney stone Peptic ulcer Back pain GERD (gastroesophageal reflux disease) Anxiety Depression Obstructive sleep apnea on CPAP Hypertension Morbid obesity Surgical History S/P laparoscopic sleeve gastrectomy History of esophagogastroduodenoscopy (EGD) History of elective Hx of wisdom tooth extraction Family History Paternal Grandmother Colon cancer Maternal Grandmother Breast cancer Paternal Aunt Cervical cancer Paternal Grandfather Mesothelioma Social History Household Members: Spouse Housing: House Are you a primary child care cook to a significant other at home: No Do you presently have visiting nurse or other home services: No Alcohol intake: current Alcohol intake frequency: holidays/special occasions only Alcohol type: other Patient Tobacco Use Status: Never used Tobacco Telehealth Telehealth Telehealth Platform: Telephone Location of provider rendering services: practice address Location of patient: address on file Patient Identification confirmed using: Name, : Yes Telehealth method: voice only Patient verbally consented to treatment: Yes Patient verbally consented to billing insurance company: Yes Patient informed of any privacy concerns related to visit: Yes Minutes spent on Phone/Video with Pt.: 12 Assessment & Plan Assessment & Plan (1) S/P laparoscopic sleeve gastrectomy: Code(s): Z98.84 - Bariatric surgery status Category: Medical Plan: Patient is doing well overall. She is exercising vigorously, adhering to the meal plan. She has lost well over 100 lb so far and is very proud of her accomplishments. She was recently started on new medications per psychiatry and we will continue as such. She does have persistent fatigue although she attributes this to other issues. She will continue her current meal plan, communicating with Dr. Pinon, follow-up in the office in 1 month.
--- OUTSIDE RECORDS SUMMARY | 2025-01-04 13:31 | XMS_ITS | Data Portability ---
Author Organization [facility], DOT Address [address] [place] [address] Assessment No assessment recorded. Plan of Treatment Reminders Order Date Submit Date Provider Last Modified By Organization Details Last Modified Time Details Appointments None recorded. Lab None recorded. Referral None recorded. Procedures None recorded. Surgeries None recorded. Imaging None recorded. Medication Orders Zepbound 2.5 mg/0.5 mL subcutaneou s pen injector 2024 025 [facility], [address] [place] [address], [id number], 08:43:59 losartan 25 mg tablet 2023 024 [facility], [address] [place] [address], [address], 09:15:15 Patient TargetsNo targets recorded. Patient InstructionsNo instructions recorded. Reason for Referral None Reported. Results Created Date Observation Date Name Description Value Unit Range Abnormal Flag Note LastModifiedBy Organization Detail LastModifiedTime 02/02/2002/02/2024 COMPL ETE BLOOD COUNT W/ DIFF white blood count 12.4 K/mm3 4.0-11 .0 high Not Available [address], [address], 02/02/2024 11:27:43 02/02/20 24 02/02/2024 COMPL ETE BLOOD COUNT W/ DIFF red blood count 4.76 M/uL 4.00-5 .50 normal Not Available [address], [address], 02/02/2024 11:27:43 02/02/20 24 02/02/2024 COMPL ETE BLOOD COUNT W/ DIFF hemoglobin 13.6 gm/dL 12.0-1 6.0 normal Not Available [address], [address], 02/02/2024 11:27:43 02/02/20 24 02/02/2024 COMPL ETE BLOOD COUNT W/ DIFF hematocrit 43.8 % 37.0-4 7.0 normal Not Available [address], [address], 02/02/2024 11:27:43 02/02/20 24 02/02/2024 COMPL ETE BLOOD COUNT W/ DIFF mean corpuscular volume 92.0 fL 80.0-1 00.0 normal Not Available [address], [address], 02/02/2024 11:27:43 02/02/20 24 02/02/2024 COMPL ETE BLOOD COUNT W/ DIFF MCHC 31.1 % 32-37 low Not Available [address], [address], 02/02/2024 11:27:43 02/02/20 24 02/02/2024 COMPL ETE BLOOD COUNT W/ DIFF red cell distribution width 13.6 % 11.5-1 6.0 normal Not Available [address], [address], 02/02/2024 11:27:43 02/02/20 24 02/02/2024 COMPL ETE BLOOD COUNT W/ DIFF platelet count 398 K/uL 140-40 0 normal Not Available [address], [address], 02/02/2024 11:27:43 02/02/20 24 02/02/2024 COMPL ETE BLOOD COUNT W/ DIFF mean platelet volume 10.1 fL 8.6-12 .5 normal Not Available [address], [address], 02/02/2024 11:27:43 02/02/20 24 02/02/2024 COMPL ETE BLOOD COUNT W/ DIFF %nucleated RBC auto 0.0 % 0.0-0. 7 normal Not Available [address], [address], 02/02/2024 11:27:43 02/02/20 24 02/02/2024 COMPL ETE BLOOD COUNT W/ DIFF %neutrophils auto 65.3 % Not Available [address], [address], 02/02/2024 11:27:43 02/02/20 24 02/02/2024 COMPL ETE BLOOD COUNT W/ DIFF %lymphocytes auto 27.6 % Not Available [address], [address], 02/02/2024 11:27:43 02/02/20 24 02/02/2024 COMPL ETE BLOOD COUNT W/ DIFF %monocytes auto 5.1 % Not Available [address], [address], 02/02/2024 11:27:43 02/02/20 24 02/02/2024 COMPL ETE BLOOD COUNT W/ DIFF %eosinophils auto 1.4 % Not Available [address], [address], 02/02/2024 11:27:43 02/02/20 24 02/02/2024 COMPL ETE BLOOD COUNT W/ DIFF %basophils auto 0.3 % Not Available [address], [address], 02/02/2024 11:27:43 02/02/20 24 02/02/2024 COMPL ETE BLOOD COUNT W/ DIFF %immature granulocytes auto 0.3 % Not Available [address], [address], 02/02/2024 11:27:43 02/02/20 24 02/02/2024 COMPL ETE BLOOD COUNT W/ DIFF #neutrophils auto 8.11 K/uL 1.50-7 .50 high Not Available [address], [address], 02/02/2024 11:27:43 02/02/20 24 02/02/2024 COMPL ETE BLOOD COUNT W/ DIFF #lymphocytes auto 3.42 K/uL 1.00-4 .50 normal Not Available [address], [address], 02/02/2024 11:27:43 02/02/20 24 02/02/2024 COMPL ETE BLOOD COUNT W/ DIFF #monocytes auto 0.63 K/uL 0.00-0 .80 normal Not Available [address], [address], 02/02/2024 11:27:43 02/02/20 24 02/02/2024 COMPL ETE BLOOD COUNT W/ DIFF #eosinophils auto 0.17 K/uL 0.00-0 .40 normal Not Available [address], [address], 02/02/2024 11:27:43 02/02/20 24 02/02/2024 COMPL ETE BLOOD COUNT W/ DIFF #basophils auto 0.04 K/uL 0.00-0 .20 normal Not Available [address], [address], 02/02/2024 11:27:43 02/02/20 24 02/02/2024 COMPL ETE BLOOD COUNT W/ DIFF #immature granulocytes auto 0.04 K/uL 0.00-0 .10 normal Not Available [address], [address], 02/02/2024 11:27:43 02/02/20 24 02/02/2024 COMPR EHENS JAMILAH METAB OLIC PANEL sodium 139 mEq/L 133-14 5 normal Not Available [address], [address], 02/02/2024 12:33:35 02/02/20 24 02/02/2024 COMPR EHENS JAMILAH METAB OLIC PANEL potassium 4.5 mEq/L 3.5-5. 1 normal Not Available [address], [address], 02/02/2024 12:33:35 02/02/20 24 02/02/2024 COMPR EHENS JAMILAH METAB OLIC PANEL chloride 104 mEq/L 98-112 normal Pleas e note new refer ence range . Not Available [address], [address], 02/02/2024 12:33:35 02/02/20 24 02/02/2024 COMPR EHENS JAMILAH METAB OLIC PANEL carbon dioxide 27 mEq/L 22-31 normal Not Available [address], [address], 02/02/2024 12:33:35 02/02/20 24 02/02/2024 COMPR EHENS JAMILAH METAB OLIC PANEL anion gap 8 mEq/L 5-15 normal Not Available [address], [address], 02/02/2024 12:33:35 02/02/20 24 02/02/2024 COMPR EHENS JAMILAH METAB OLIC PANEL blood urea nitrogen (BUN) 8 mg/dL 7-19 normal Not Available [address], [address], 02/02/2024 12:33:35 02/02/20 24 02/02/2024 COMPR EHENS JAMILAH METAB OLIC PANEL creatinine 0.84 mg/dL 0.50-1 .02 normal Not Available [address], [address], 02/02/2024 12:33:35 02/02/20 24 02/02/2024 COMPR EHENS [...] G5 (kidn ey failu re). Not Available [address], [address], 02/02/2024 12:33:35 02/02/20 24 02/02/2024 COMPR EHENS JAMILAH METAB OLIC PANEL glucose 82 mg/dL 70-100 normal Fasti ng Refer ence Inter norma: 70-10 0mg/d L Non-f astin g Refer ence Inter norma: 70-14 0mg/d L Not Available [address], [address], 02/02/2024 12:33:35 02/02/20 24 02/02/2024 COMPR EHENS JAMILAH METAB OLIC PANEL calcium 9.2 mg/dL 8.4-10 .4 normal Not Available [address], [address], 02/02/2024 12:33:35 02/02/20 24 02/02/2024 COMPR EHENS JAMILAH METAB OLIC PANEL bilirubin total 0.8 mg/dL 0.2-1. 2 normal Not Available [address], [address], 02/02/2024 12:33:35 02/02/20 24 02/02/2024 COMPR EHENS JAMILAH METAB OLIC PANEL aspartate amino transferase 22 IU/L 5-34 normal Not Available [address], [address], 02/02/2024 12:33:35 02/02/20 24 02/02/2024 COMPR EHENS JAMILAH METAB OLIC PANEL alanine aminotransfe rase 26 IU/L 0-55 normal Not Available [address], [address], 02/02/2024 12:33:35 02/02/20 24 02/02/2024 COMPR EHENS JAMILAH METAB OLIC PANEL total protein 7.2 g/dL 6.0-8. 3 normal Not Available [address], [address], 02/02/2024 12:33:35 02/02/20 24 02/02/2024 COMPR EHENS JAMILAH METAB OLIC PANEL albumin 3.3 g/dL 2.8-5. 4 normal Not Available [address], [address], 02/02/2024 12:33:35 02/02/20 24 02/02/2024 COMPR EHENS JAMILAH METAB OLIC PANEL alkaline phosphatase 105 IU/L 40-150 normal Not Available [address], [address], 02/02/2024 12:33:35 02/02/20 24 02/02/2024 LIPID PANEL triglyceride s 77 mg/dL normal Debra l <=150 Debra l 150-1 99 Borde rline High 200-4 99 High >=500 Very High Not Available [address], [address], 02/02/2024 12:33:35 02/02/20 24 02/02/2024 LIPID PANEL cholesterol 168 mg/dL normal Edu able <200 Edu able 200-2 39 Borde rline High >=240 High Not Available [address], [address], 02/02/2024 12:33:35 02/02/20 24 02/02/2024 LIPID PANEL LDL cholesterol calculated 106 mg/dL normal Near Optim al <100 Optim al 100-1 29 Near optim al 130-1 59 Borde rline High 160-1 89 High >=190 Very High Not Available [address], [address], 02/02/2024 12:33:35 02/02/20 24 02/02/2024 LIPID PANEL HDL cholesterol 47 mg/dL 40- Not Available [address], [address], 02/02/2024 12:33:35 02/02/20 24 02/02/2024 THYRO ID STIMU LATIN G HORMO NE thyroid stimulating hormone 1.58 uIU/m L 0.35-4 .94 normal Not Available [address], [address], 02/02/2024 12:33:36 Result Notes None recorded. Problems Name Problem SNOMED Code Status Onset Date Resolution Date Notes Provider Name and Address Organization Details Recorded Time Allergic rhinitis 50962173 Active 2019 Gavin Thomson MD [address] [place] [address], [place], [address], [place] - PMA/WIP 0 12:02:22 Obesity 420061455 Active 2022 Gavin Thomson MD [address] [place] [address], [place], [address], [place] - PMA/WIP 3 09:03:19 Attention deficit hyperactivity disorder 098652150 Active 2023 Gavin Thomson MD [address] [place] [address], [place], [address], [place] - PMA/WIP 4 11:08:11 Essential hypertension 61948877 Active 2018 Gavin Thomson MD [address] [place] [address], [place] [address], [place], [address], [place] - PMA/WIP 9 14:42:20 Depressive disorder 46950758 Active 2018 Gavin Thomson MD [address] [place] [address], [place], [address], [place] - PMA/WIP 9 14:42:45 Anxiety 90776432 Active 2018 Gavin Thomson MD [address] [place] [address], [place], [address], [place] - PMA/WIP 9 14:42:52 Vitamin D deficiency 76022773 Active 2018 Gavin Thomson MD [address] [place] [address], [place], [address], [place] - PMA/WIP 9 14:43:13 Obstructive sleep apnea syndrome 69468887 Active 2018 on CPAP Gavin Thomson MD [address] [place] [address], [place], [address], [place] - PMA/WIP 9 14:43:42 Notes:Some problems listed i n Document: #[id number] could not be added to this patient's [...] Address Organization Details Last Updated DateTime 5 344929. 2 g 98 % 98 % 96 /min 120 mm[Hg] 80 mm[Hg] Celeste hong Lou-be ach [place] - PMA/WIP 5 14:47:36 Date Recorded Body weight Oxygen saturation Oxygen saturation in Arterial blood by Pulse oximetry Heart rate Systolic blood pressure Diastolic blood pressure Provider Name and Address Organization Details Last Updated DateTime 5 116037. 05 g 95 % 95 % 82 /min 130 mm[Hg] 80 mm[Hg] Celeste hong Lou-be ach [place] - PMA/WIP 5 14:36:13 Date Recorded Body weight Oxygen saturation Oxygen saturation in Arterial blood by Pulse oximetry Heart rate Systolic blood pressure Diastolic blood pressure Provider Name and Address Organization Details Last Updated DateTime 5 55411.5 4 g 97 % 97 % 75 /min 128 mm[Hg] 88 mm[Hg] Celeste hong Lou-be ach [place] - PMA/WIP 5 08:29:09 Date Recorded Body weight Oxygen saturation Oxygen saturation in Arterial blood by Pulse oximetry Heart rate Systolic blood pressure Diastolic blood pressure Provider Name and Address Organization Details Last Updated DateTime 4 227092. 01 g 98 % 98 % 87 /min 150 mm[Hg] 102 mm[Hg] Celeste hong Lou-be ach [place] - PMA/WIP 4 08:54:31 Date Recorded Systolic blood pressure Diastolic blood pressure Provider Name and Address Organization Details Last Updated DateTime 03/24/2024 132 mm[Hg] 80 mm[Hg] Gavin Thomson MD [address] [place] [address], [place], [address], [place] - PMA/WIP 03/24/2024 10:28:47 Date Recorded Body weight Oxygen saturation Oxygen saturation in Arterial blood by Pulse oximetry Heart rate Systolic blood pressure Diastolic blood pressure Provider Name and Address Organization Details Last Updated DateTime 4 984243. 11 g 98 % 98 % 73 /min 146 mm[Hg] 92 mm[Hg] Celeste hong Lou-be ach [place] - PMA/WIP 4 10:09:27 Social History Question Answer Notes LastModified by Organizat ion Details LastModified Time Tobacco Smoking Status Never Smoker Not Available [employer] 04/26/2020 03:13:01 What Was The Date Of Your Most Recent Tobacco Screening? 01/18/2019 [id number] Information not available 04/26/2020 Sex: Female Functional [...] mcg/0.25mL dose 2 completed Gavin Thomson MD [address] [place] [address], [address], [place] - PMA/WIP 12/05/2022 08:17:49 COVID-19, mRNA, LNP-S, PF, 30 mcg/0.3 mL dose 1 completed Gavin Thomson MD [address] [place] [address], [address], [place] - PMA/WIP 12/05/2022 08:17:49 COVID-19, mRNA, LNP-S, PF, 30 mcg/0.3 mL dose 1 completed Gavin Thomson MD [address] [place] [address], [address], [place] - PMA/WIP 12/05/2022 08:17:49 Influenza, split virus, quadrivalent, preservative 9 completed Elvia vásquez, [place] - PMA/WIP 05/30/2019 09:12:53 Past Encounters Encounter ID Performer Location Encounter Start Date Encounter Closed Date Diagnosis/Indication Diagnosis SNOMED-CT Code Diagnosis ICD10 Code Diagnosis Note [id number] [facility] [address] [address] 01/18/2019 14:34:53 01/19/2019 08:15:20 Body mass index 30+ - obesity 544060213 Z68.42 diet reviewed; discussed weight loss sugery Essential hypertension 38320948 I10 hctz, diet Obstructiv e sleep apnea syndrome 20540491 G47.33 CPAP [id number] Gavin Thomson MD [facility] [place] [address] [address] 05/30/2019 08:47:16 05/31/2019 07:30:50 Obstructive sleep apnea syndrome 45612821 G47.33 CPAP Depressive disorder 3548 9007 F32.9 f/u psych; fluoxetine Anxiety 49614832 F41.9 f/u psych; fluoxetine Essential hypertension 85107253 I10 hctz; low salt Vitamin D deficiency 347 78779 E55.9 check level [id number] MD [place] [address] [address] 11/24/2019 10:13:22 11/24/2019 12:59:09 Depressive disorder 71269226 F32.9 f/u psych; fluoxetine Anxiety 86954439 F41.9 f/u psych; fluoxetine Obstructiv e sleep apnea syndrome 03596998 G47.33 CPAP Essential hypertension 93529163 I10 hctz; low salt Body mass index 30+ - obesity 090481990 Z68.42 diet reviewed; discussed weight loss sugery Exposure t o SARS-CoV-2 592925493 Z20.828 [id number] [facility] [address] [address] 04/10/2020 07:58:12 04/11/2020 14:33:04 Obstructive sleep apnea syndrome 88978099 G47.33 CPAP Anxiety 54000586 F41.9 f/u psych; fluoxetine Depressive disorder 3548 9007 F32.9 f/u psych; fluoxetine ; now with wellbutrin Essential hypertension 16514074 I10 hctz; low salt; check labs; Vitamin D deficiency 347 96329 E55.9 check level Body mass index 30+ - obesity 129780994 Z68.42 diet reviewed; discussed weight loss surgery Exposure t o SARS-CoV-2 113526159 Z20.828 [id number] Gavin Thomson MD [address] [address] 10/04/2020 07:53:36 10/04/2020 10:08:31 Obstructive sleep apnea syndrome 03205909 G47.33 CPAP Vitamin D deficiency 347 07386 E55.9 check level Anxiety 08773656 F41.9 f/u psych; fluoxetine Essential hypertension 61760371 I10 hctz; low salt; check labs; Depressive disorder 3548 9007 F32.9 f/u psych; fluoxetine ; now with wellbutrin Body mass index 30+ - obesity 806424421 Z68.42 diet reviewed; discussed weight loss surgery [id number] Gavin Thomson MD [address] [address] 08/19/2021 09:03:00 08/19/2021 10:18:49 Obstructive sleep apnea syndrome 75691978 G47.33 CPAP Vitamin D deficiency 347 47007 E55.9 check level Anxiety 99171536 F41.9 f/u psych; fluoxetine Depressive disorder 3548 9007 F32.9 f/u psych; fluoxetine ; now with wellbutrin Essential hypertension 92489909 I10 hctz; low salt; check labs; Allergic rhinitis 845132 04 J30.9 Impaired f asting glycemia 041543598 R73.01 [id number] Gavin Thomson MD [address] [address] 12/05/2022 08:11:00 12/05/2022 09:07:09 Obstructive sleep apnea syndrome 44935887 G47.33 CPAP Anxiety 09932988 F41.9 f/u psych; fluoxetine Depressive disorder 3548 9007 F32.9 f/u psych; fluoxetine ; now with wellbutrin Essential hypertension 41741162 I10 hctz; low salt; check labs; Vitamin D deficiency 347 34579 E55.9 check level History an d physical examination, school 19454845 Z02.0 needs he;p B SABneeds viral titres orderednee ds IGRAobes Obesity 862871315 E66.9 diet discussed [id number] [facility] [address] [place] [address] 02/04/2024 10:28:43 02/04/2024 12:15:32 Obesity 563943173 E66.9 diet discussed Obstructiv e sleep apnea syndrome 23997686 G47.33 CPAP Allergic rhinitis 857090 04 J30.9 Anxiety 66147392 F41.9 f/u psych; fluoxetine Essential hypertension 54719297 I10 hctz; low salt; check labs;bp checks on methylphen idate call with results Depressive disorder 3548 9007 F32.9 f/u psych; fluoxetine ; Attention deficit hyperactivity disorder 934989622 F90.9 continue psych therapy [id number] MD Sola Koch [place] [address] [place] [address] 02/23/2024 08:52:23 02/23/2024 09:19:34 Attention deficit hyperactivity disorder 912494115 F90.9 continue psych therapy Obstructiv e sleep apnea syndrome 54786365 G47.33 CPAP Depressive disorder 3548 9007 F32.9 f/u psych; fluoxetine ; Essential hypertension 31731686 I10 add losartan 25 mgreduce to 12.5 mg prior: hctz; low salt; check labs;bp checks on methylphen idate call with results [id number] [facility] MD [facility] [place] [address] [place] [address] 03/24/2024 10:05:45 03/24/2024 10:30:54 Attention deficit hyperactivity disorder 592592294 F90.9 continue psych therapy Obesity 851576192 E66.9 diet discussed Obstructiv e sleep apnea syndrome 08758111 G47.33 CPAP Anxiety 03931200 F41.9 f/u psych; fluoxetine Essential hypertension 79679872 I10 add losartan 25 mgcontinue hctz at 25 mg prior: hctz; low salt; check labs;bp checks on methylphen idate call with results [id number] [facility] MD [facility] [address] [place] [address] 08/09/2024 14:44:59 08/11/2024 08:04:12 Attention deficit hyperactivity disorder 835082164 F90.9 continue psych therapy Obesity 680864805 E66.9 diet discussed Obstructiv e sleep apnea syndrome 91393765 G47.33 CPAP Depressive disorder 3548 9007 F32.9 f/u psych; fluoxetine ; Essential hypertension 62981474 I10 add losartan 25 mgcontinue hctz at 25 mg prior: hctz; low salt; check labs;bp checks on methylphen idate call with results [id number] Gavin Thomson MD [address] [address] 08/30/2024 14:16:44 09/01/2024 13:10:38 Attention deficit hyperactivity disorder 693797099 F90.9 continue psych therapy Obesity 731852688 E66.9 diet discussed Obstructiv e sleep apnea syndrome 97696827 G47.33 CPAP Anxiety 37803618 F41.9 f/u psych; fluoxetine Depressive disorder 3548 9007 F32.9 f/u psych; fluoxetine ; Essential hypertension 10990453 I10 add losartan 25 mgcontinue hctz at 25 mg prior: hctz; low salt; check labs;bp checks on methylphen idate call with results [id number] Gavin Thomson MD [address] [address] 11/15/2024 08:26:57 11/15/2024 12:17:49 Attention deficit hyperactivity disorder 138495779 F90.9 continue psych therapy Obesity 304489719 E66.9 s/p gastri sleevediet discussed Obstructiv e sleep apnea syndrome 46283107 G47.33 CPAP Depressive disorder 3548 9007 F32.9 f/u psych; fluoxetine ; Essential hypertension 56898902 I10 add losartan 25 mgcontinue hctz at 25 mg prior: hctz; low salt; check labs;bp checks on methylphen idate call with results Anxiety 51888755 F41.9 f/u psych; fluoxetine Health Concerns Section Related Observation LastModified by Organization Detai ls LastModified Time None Recorded Concern Status LastModified by Organization Details LastModified Time None Recorded Advance Directives Directive None Recorded Payers Insurance Date Sequence Insurance Name Policy Number Policy Grewal Covered Member ID Grewal Member ID Guarantor Name 11/12/2024 1 [place] [id number] Mannie Romero [id number] Beckie Edouard 11/15/2024 2 [place] [facility] [id number] Beckie Edouard [id number] Beckie Edouard 11/20/2024 2 UNSPECIFIED REMIT PAYOR Beckie Edouard Notes Date Note Type Note Provider Name and Address Organization Details Recorded Time 02/23/2024 text/html was doing well; but bp has been up;140's /90used to be lower;stopped taking 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;mo od is better on lexapro;on hctz 25; Gavin Thomson MD [address] [place] [address], [place], [address], [place] - PMA/WIP 02/23/2024 09:16:00 03/24/2024 text/html doing well; no prob with meds;on losartan 25 mg hctz 25 mgbp at home 125/72now on zyprexa 7.5fluoxetine 60 mg Gavin Thomson MD [address] [place] [address], [place], [address], [place] - PMA/WIP 03/24/2024 10:29:10 08/09/2024 text/html doing ok2 pets this month;tried concerta but choked on tabletsaw gi and had endoscopy for esophageal webbiopsy will have dilation done;had LEEP procedure done;start strattera tomorrow Gavin Thomson MD [address] [place] [address], [place], [address], [place] - PMA/WIP 08/09/2024 15:18:49 08/30/2024 text/html wanting to lose weighthas been prescribed zepbound before but too expensivenow has new insuranceis considering bariatric surgeryhas lost 76 lbs through diet and exercise but weight loss has stopped Gavin Thomson MD [address] [place] [address], [place], [address], [place] - PMA/WIP 09/01/2024 13:06:39 11/15/2024 text/html wanting to lose weighthas been prescribed zepbound before but too expensivenow has new insuranceis considering bariatric surgeryhas lost 76 lbs through diet and exercise but weight loss has stopped did not start zepboundhad gastric sleeve 5 days a GODO[facility] WELLtakes 2 ml every minute of fluid while awake Gavin Thomson MD [address] [place] [address], [address], [place], [address], [facility] - PMA/WIP 11/15/2024 12:12:35 OBGyn Episode No OBEpisode recorded.
== END 2025-01-04 11:29 | disposition home or self-care (01) ==
LOC: HO.HBS 11:24
PROVIDERS: PCP Internal Medicine; Visit Provider Physician Assistant Surgical
DX: Z98.84 Bariatric surgery status (principal)
CPT/HCPCS: 99024

== ENCOUNTER 2025-02-07 08:03 | Outpatient (AMB) | payer BC, SELFPAY ==
--- NOTE | 2025-02-07 07:31 | A.OFFVIS_ITS ---
VS Expanded 02/07/25 07:33 Height 5 ft 6 in Weight 166 lb 8 oz BMI 26.9 Body Fat % 30.9 Fat Free Mass 115.1 Visceral Fat Rating 9 Body Water % 47.3 Muscle Mass/Score 108.2 Basal Metabolic Rate/Score 1,506 Intake Visit Reasons: TV PO LSG 11/10/24 Clinical Engineering Director Required: No Allergies pollen extracts Allergy (Intermediate, Verified 12/06/24 13:35) Itchy Eyes Medication List - Last Reconciled 02/07/25 by BHUMIKA Mcgregor bupropion HCl XL (Wellbutrin XL) 150 mg PO QAM drospirenone-ethinyl estradiol 3-0.02 mg (MARGARET (28)) 1 tab PO DAILY fluoxetine (Prozac) 60 mg PO BEDTIME lurasidone 40 mg PO BEDTIME modafinil 100 mg PO DAILY spironolactone 50 mg PO BID trazodone 75 mg PO BEDTIME PRN HPI Comments Details: This?a?34?yo female who is s/p LSG without hiatal hernia repair on?11/10/2024. Presents for 3 month post op visit. Weight today is 166.8 pounds, with a BMI of 26.9. There has been a 156.2 pound weight loss,(initial weight 323 pounds) since starting the program on 04/08/2024 reflecting a 48.3 % total body weight loss and a weight loss of 55.3 pounds since surgery (operative weight 222.1 pounds) reflecting a 24.8 % TBWL since surgery. No complaints of nausea, emesis, abdominal pain or reflux. Reports infrequent but normal bowel movements every 2-3 days and uses stool softeners regularly. Improved w miralax. Feels great about the weight loss. She is having excess skin of the thighs, arms and stomach. She is not having any rashes or difficulty with ADLs. Satisfied with her meal plan Present meal plan includes: Atkins RTD shake 6 oz w 2 oz almond milk at 8-10 Atkins bar 11-1 entire shake 2-4 meal at 5 pm with 3 forks protein and 3 forks veg 1/2 bar 7-9 drinking 60 oz fluids Exercise routine includes: treadmill daily 100 min, 1000 ann, speed 3.5, incline 4-10 PFSH Medical History (Updated 01/15/25 @ 08:26 by Ralph Pinon MD) BMI 34.0-34.9,adult Gastritis Bipolar 1 disorder Kidney stone Peptic ulcer Back pain GERD (gastroesophageal reflux disease) Anxiety Depression Obstructive sleep apnea on CPAP Hypertension Morbid obesity Surgical History S/P laparoscopic sleeve gastrectomy History of esophagogastroduodenoscopy (EGD) History of elective Hx of wisdom tooth extraction Family History Paternal Grandmother Colon cancer Maternal Grandmother Breast cancer Paternal Aunt Cervical cancer Paternal Grandfather Mesothelioma Social History Household Members: Spouse Housing: House Are you a primary home care consultant to a significant other at home: No Do you presently have visiting nurse or other home services: No Alcohol intake: current Alcohol intake frequency: holidays/special occasions only Alcohol type: other Patient Tobacco Use Status: Never used Tobacco Telehealth Telehealth Telehealth Platform: Telephone Location of provider rendering services: practice address Location of patient: address on file Patient Identification confirmed using: Name, : Yes Telehealth method: voice only Patient verbally consented to treatment: Yes Patient verbally consented to billing insurance company: Yes Patient informed of any privacy concerns related to visit: Yes Minutes spent on Phone/Video with Pt.: 15 Assessment & Plan Assessment & Plan (1) S/P laparoscopic sleeve gastrectomy: Code(s): Z98.84 - Bariatric surgery status Category: Surgical Plan: Overall, patient is doing well. She has lost over 150 lb since starting the program approximately 10 months ago. She does note excess skin of the arms, thighs, abdomen although is not having any rashes or difficulty with ADLs. She is satisfied with her current meal plan. She is exercising regularly. She is communicating with Dr. Pinon. She has no questions and we will have her follow-up in the office in approximately 2 months.
[2025-02-07 07:33] VITALS: BMI 26.9
--- OUTSIDE RECORDS SUMMARY | 2025-02-07 08:05 | XMS_ITS | Data Portability ---
Author Organization [facility], [employer] Address [address] [place] [address] Assessment No assessment recorded. Plan of Treatment Reminders Order Date Submit Date Provider Last Modified By Organization Details Last Modified Time Details Appointments None recorded. Lab None recorded. Referral None recorded. Procedures None recorded. Surgeries None recorded. Imaging None recorded. Medication Orders Zepbound 2.5 mg/0.5 mL subcutaneou s pen injector 2024 025 [facility], [address] [place] [address], [address], 08:43:59 losartan 25 mg tablet 2023 024 [facility], [address] [place] [address], [address], 09:15:15 Patient TargetsNo targets recorded. Patient InstructionsNo instructions recorded. Reason for Referral None Reported. Results Created Date Observation Date Name Description Value Unit Range Abnormal Flag Note LastModifiedBy Organization Detail LastModifiedTime 02/02/2002/02/2024 COMPL ETE BLOOD COUNT W/ DIFF white blood count 12.4 K/mm3 4.0-11 .0 high Not Available [address], [address], 02/02/2024 11:27:43 02/02/20 24 02/02/2024 COMPL ETE BLOOD COUNT W/ DIFF red blood count 4.76 M/uL 4.00-5 .50 normal Not Available [address], [address], 02/02/2024 11:27:43 02/02/20 24 02/02/2024 COMPL ETE BLOOD COUNT W/ DIFF hemoglobin 13.6 gm/dL 12.0-1 6.0 normal Not Available [address], [address], 02/02/2024 11:27:43 02/02/20 24 02/02/2024 COMPL ETE BLOOD COUNT W/ DIFF hematocrit 43.8 % 37.0-4 7.0 normal Not Available [address], [address], 02/02/2024 11:27:43 02/02/20 24 02/02/2024 COMPL ETE BLOOD COUNT W/ DIFF mean corpuscular volume 92.0 fL 80.0-1 00.0 normal Not Available [address], [address], 02/02/2024 11:27:43 02/02/20 24 02/02/2024 COMPL ETE BLOOD COUNT W/ DIFF MCHC 31.1 % 32-37 low Not Available [address], [address], 02/02/2024 11:27:43 02/02/20 24 02/02/2024 COMPL ETE BLOOD COUNT W/ DIFF red cell distribution width 13.6 % 11.5-1 6.0 normal Not Available [address], [address], 02/02/2024 11:27:43 02/02/20 24 02/02/2024 COMPL ETE BLOOD COUNT W/ DIFF platelet count 398 K/uL 140-40 0 normal Not Available [address], [address], 02/02/2024 11:27:43 02/02/20 24 02/02/2024 COMPL ETE BLOOD COUNT W/ DIFF mean platelet volume 10.1 fL 8.6-12 .5 normal Not Available [address], [address], 02/02/2024 11:27:43 02/02/20 24 02/02/2024 COMPL ETE BLOOD COUNT W/ DIFF %nucleated RBC auto 0.0 % 0.0-0. 7 normal Not Available [address], [address], 02/02/2024 11:27:43 02/02/20 24 02/02/2024 COMPL ETE BLOOD COUNT W/ DIFF %neutrophils auto 65.3 % Not Available [address], [address], 02/02/2024 11:27:43 02/02/20 24 02/02/2024 COMPL ETE BLOOD COUNT W/ DIFF %lymphocytes auto 27.6 % Not Available [address], [address], 02/02/2024 11:27:43 02/02/20 24 02/02/2024 COMPL ETE BLOOD COUNT W/ DIFF %monocytes auto 5.1 % Not Available [address], [address], 02/02/2024 11:27:43 02/02/20 24 02/02/2024 COMPL ETE BLOOD COUNT W/ DIFF %eosinophils auto 1.4 % Not Available [address], [address], 02/02/2024 11:27:43 02/02/20 24 02/02/2024 COMPL ETE BLOOD COUNT W/ DIFF %basophils auto 0.3 % Not Available [address], [address], 02/02/2024 11:27:43 02/02/20 24 02/02/2024 COMPL ETE BLOOD COUNT W/ DIFF %immature granulocytes auto 0.3 % Not Available [address], [address], 02/02/2024 11:27:43 02/02/20 24 02/02/2024 COMPL ETE BLOOD COUNT W/ DIFF #neutrophils auto 8.11 K/uL 1.50-7 .50 high Not Available [address], [address], 02/02/2024 11:27:43 02/02/20 24 02/02/2024 COMPL ETE BLOOD COUNT W/ DIFF #lymphocytes auto 3.42 K/uL 1.00-4 .50 normal Not Available [address], [address], 02/02/2024 11:27:43 02/02/20 24 02/02/2024 COMPL ETE BLOOD COUNT W/ DIFF #monocytes auto 0.63 K/uL 0.00-0 .80 normal Not Available [address], [address], 02/02/2024 11:27:43 02/02/20 24 02/02/2024 COMPL ETE BLOOD COUNT W/ DIFF #eosinophils auto 0.17 K/uL 0.00-0 .40 normal Not Available [address], [address], 02/02/2024 11:27:43 02/02/20 24 02/02/2024 COMPL ETE BLOOD COUNT W/ DIFF #basophils auto 0.04 K/uL 0.00-0 .20 normal Not Available [address], [address], 02/02/2024 11:27:43 02/02/20 24 02/02/2024 COMPL ETE BLOOD COUNT W/ DIFF #immature granulocytes auto 0.04 K/uL 0.00-0 .10 normal Not Available [address], [address], 02/02/2024 11:27:43 02/02/20 24 02/02/2024 COMPR EHENS JAMILAH METAB OLIC PANEL sodium 139 mEq/L 133-14 5 normal Not Available [address], [address], 02/02/2024 12:33:35 02/02/20 24 02/02/2024 COMPR EHENS JAMILAH METAB OLIC PANEL potassium 4.5 mEq/L 3.5-5. 1 normal Not Available [address], [address], 02/02/2024 12:33:35 02/02/20 24 02/02/2024 COMPR EHENS JAMILAH METAB OLIC PANEL chloride 104 mEq/L 98-112 normal Pleas e note new refer ence range . Not Available [address], [address], 02/02/2024 12:33:35 02/02/20 24 02/02/2024 COMPR EHENS JAMILAH METAB OLIC PANEL carbon dioxide 27 mEq/L 22-31 normal Not Available [address], [address], 02/02/2024 12:33:35 02/02/20 24 02/02/2024 COMPR EHENS JAMILAH METAB OLIC PANEL anion gap 8 mEq/L 5-15 normal Not Available [address], [address], 02/02/2024 12:33:35 02/02/20 24 02/02/2024 COMPR EHENS JAMILAH METAB OLIC PANEL blood urea nitrogen (BUN) 8 mg/dL 7-19 normal Not Available [address], [address], 02/02/2024 12:33:35 02/02/20 24 02/02/2024 COMPR EHENS JAMILAH METAB OLIC PANEL creatinine 0.84 mg/dL 0.50-1 .02 normal Not Available [address], [address], 02/02/2024 12:33:35 02/02/20 24 02/02/2024 COMPR EHENS [...] G5 (kidn ey failu re). Not Available [address], [address], 02/02/2024 12:33:35 02/02/20 24 02/02/2024 COMPR EHENS JAMILAH METAB OLIC PANEL glucose 82 mg/dL 70-100 normal Fasti ng Refer ence Inter norma: 70-10 0mg/d L Non-f astin g Refer ence Inter norma: 70-14 0mg/d L Not Available [address], [address], 02/02/2024 12:33:35 02/02/20 24 02/02/2024 COMPR EHENS JAMILAH METAB OLIC PANEL calcium 9.2 mg/dL 8.4-10 .4 normal Not Available [address], [address], 02/02/2024 12:33:35 02/02/20 24 02/02/2024 COMPR EHENS JAMILAH METAB OLIC PANEL bilirubin total 0.8 mg/dL 0.2-1. 2 normal Not Available [address], [address], 02/02/2024 12:33:35 02/02/20 24 02/02/2024 COMPR EHENS JAMILAH METAB OLIC PANEL aspartate amino transferase 22 IU/L 5-34 normal Not Available [address], [address], 02/02/2024 12:33:35 02/02/20 24 02/02/2024 COMPR EHENS JAMILAH METAB OLIC PANEL alanine aminotransfe rase 26 IU/L 0-55 normal Not Available [address], [address], 02/02/2024 12:33:35 02/02/20 24 02/02/2024 COMPR EHENS JAMILAH METAB OLIC PANEL total protein 7.2 g/dL 6.0-8. 3 normal Not Available [address], [address], 02/02/2024 12:33:35 02/02/20 24 02/02/2024 COMPR EHENS JAMILAH METAB OLIC PANEL albumin 3.3 g/dL 2.8-5. 4 normal Not Available [address], [address], 02/02/2024 12:33:35 02/02/20 24 02/02/2024 COMPR EHENS JAMILAH METAB OLIC PANEL alkaline phosphatase 105 IU/L 40-150 normal Not Available [address], [address], 02/02/2024 12:33:35 02/02/20 24 02/02/2024 LIPID PANEL triglyceride s 77 mg/dL normal Debra l <=150 Debra l 150-1 99 Borde rline High 200-4 99 High >=500 Very High Not Available [address], [address], 02/02/2024 12:33:35 02/02/20 24 02/02/2024 LIPID PANEL cholesterol 168 mg/dL normal Edu able <200 Edu able 200-2 39 Borde rline High >=240 High Not Available [address], [address], 02/02/2024 12:33:35 02/02/20 24 02/02/2024 LIPID PANEL LDL cholesterol calculated 106 mg/dL normal Near Optim al <100 Optim al 100-1 29 Near optim al 130-1 59 Borde rline High 160-1 89 High >=190 Very High Not Available [address], [address], 02/02/2024 12:33:35 02/02/20 24 02/02/2024 LIPID PANEL HDL cholesterol 47 mg/dL 40- Not Available [address], [address], 02/02/2024 12:33:35 02/02/20 24 02/02/2024 THYRO ID STIMU LATIN G HORMO NE thyroid stimulating hormone 1.58 uIU/m L 0.35-4 .94 normal Not Available [address], [address], 02/02/2024 12:33:36 Result Notes None recorded. Problems Name Problem SNOMED Code Status Onset Date Resolution Date Notes Provider Name and Address Organization Details Recorded Time Essential hypertension 67037265 Active 2018 Gavin Thomson MD [address] [place] [address], [place], [address], [place] - PMA/WIP 9 14:42:20 Depressive disorder 71781965 Active 2018 Gavin Thomson MD [address] [place] [address], [place], [address], [place] - PMA/WIP 9 14:42:45 Anxiety 33266523 Active 2018 Gavin Thomson MD [address] [place] [address], [place], [address], [place] - PMA/WIP 9 14:42:52 Vitamin D deficiency 61732771 Active 2018 Gavin Thomson MD [address] [place] [address], [place], [address], [facility] - PMA/WIP 9 14:43:13 Obstructive sleep apnea syndrome 36099129 Active 2018 on CPAP Gavin Thomson MD [address] [place] [address], [place], [address], [place] - PMA/WIP 9 14:43:42 Allergic rhinitis 01282047 Active 2019 Gavin Thomson MD [address] [place] [address], [place], [address], [facility] - PMA/WIP 0 12:02:22 Obesity 130696750 Active 2022 Gavin Thomson MD [address] [place] [address], [place], [address], [place] - PMA/WIP 3 09:03:19 Attention deficit hyperactivity disorder 473896786 Active 2023 Gavin Thomson MD [address] [place] [address], [place], [address], [place] - PMA/WIP 4 11:08:11 Notes:Some problems listed i n Document: #[id number] could not be added to this patient's [...] Address Organization Details Last Updated DateTime 5 461693. 2 g 98 % 98 % 96 /min 120/80 mm[Hg] Celeste Lou-be [facility] [place] - PMA/WIP 5 14:47:36 Date Recorded Body weight Oxygen saturation Oxygen saturation in Arterial blood by Pulse oximetry Heart rate Systolic And Diastolic Provider Name and Address Organization Details Last Updated DateTime 5 466893. 05 g 95 % 95 % 82 /min 130/80 mm[Hg] Celeste Benavidesles-be [facility] [place] - PMA/WIP 5 14:36:13 Date Recorded Body weight Oxygen saturation Oxygen saturation in Arterial blood by Pulse oximetry Heart rate Systolic And Diastolic Provider Name and Address Organization Details Last Updated DateTime 5 87204.5 4 g 97 % 97 % 75 /min 128/88 mm[Hg] Celeste Lou-be [facility] [place] - PMA/WIP 5 08:29:09 Date Recorded Body weight Oxygen saturation Oxygen saturation in Arterial blood by Pulse oximetry Heart rate Systolic And Diastolic Provider Name and Address Organization Details Last Updated DateTime 4 340420. 01 g 98 % 98 % 87 /min 150/102 mm[Hg] Celeste Lou-be [facility] [place] - PMA/WIP 4 08:54:31 Date Recorded Systolic And Diastolic Provider Name and Address Organization Details Last Updated DateTime 03/24/2024 132/80 mm[Hg] Gavin Thomson MD [address] [place] [address], [address], [place], [address], [place] - PMA/WIP 03/24/2024 10:28:47 Date Recorded Body weight Oxygen saturation Oxygen saturation in Arterial blood by Pulse oximetry Heart rate Systolic And Diastolic Provider Name and Address Organization Details Last Updated DateTime 4 966648. 11 g 98 % 98 % 73 /min 146/92 mm[Hg] Celeste Lou-be [facility] [place] - PMA/WIP 4 10:09:27 Social History Question Answer Notes LastModified by Organizat ion Details LastModified Time Tobacco Smoking Status Never Smoker Not Available [facility] 04/26/2020 03:13:01 What Was The Date Of Your Most Recent Tobacco Screening? 01/18/2019 [id number] Information not available 04/26/2020 Sex: Female Functional Status Question Answer Note LastModified by Organization D etails LastModified Time What is your level of alcohol consumption? None [email or web address] Information not available 12/05/2022 Mental Status None [...] Immunizations Vaccine Type Date Status Note Provider Vasquez e and Address Organization Details Recorded Time COVID-19, mRNA, LNP-S, PF, 100 mcg/0.5mL dose or 50 mcg/0.25mL dose 2 completed Gavin Thomson MD [address] [place] [address], [address], [place] - PMA/WIP 12/05/2022 08:17:49 COVID-19, mRNA, LNP-S, PF, 30 mcg/0.3 mL dose 1 completed Gavin Thomson MD [address] [place] [address], [address], [place] - PMA/WIP 12/05/2022 08:17:49 COVID-19, mRNA, LNP-S, PF, 30 mcg/0.3 mL dose 1 completed Gavin Thomson MD [address] [place] [address], [address], [place] - PMA/WIP 12/05/2022 08:17:49 Influenza, split virus, quadrivalent, preservative 9 completed Elvia vásquez, [place] - PMA/WIP 05/30/2019 09:12:53 Past Encounters Encounter ID Performer Location Encounter Start Date Encounter Closed Date Diagnosis/Indication Diagnosis SNOMED-CT Code Diagnosis ICD10 Code Diagnosis Note [id number] MD Sola Koch [address] [address] [place] [address] 01/18/2019 14:34:53 01/19/2019 08:15:20 Body mass index 30+ - obesity 360024455 Z68.42 diet reviewed; discussed weight loss sugery Essential hypertension 43048680 I10 hctz, diet Obstructiv e sleep apnea syndrome 41267965 G47.33 CPAP [id number] Gavin Thomson MD [facility] [place] [address] [address] 05/30/2019 08:47:16 05/31/2019 07:30:50 Obstructive sleep apnea syndrome 99280126 G47.33 CPAP Depressive disorder 3548 9007 F32.9 f/u psych; fluoxetine Anxiety 56823951 F41.9 f/u psych; fluoxetine Essential hypertension 45094532 I10 hctz; low salt Vitamin D deficiency 347 10219 E55.9 check level [id number] Gavin Thomson MD [facility] [place] [address] [address] 11/24/2019 10:13:22 11/24/2019 12:59:09 Depressive disorder 04092913 F32.9 f/u psych; fluoxetine Anxiety 63207136 F41.9 f/u psych; fluoxetine Obstructiv e sleep apnea syndrome 90196162 G47.33 CPAP Essential hypertension 48255738 I10 hctz; low salt Body mass index 30+ - obesity 760215513 Z68.42 diet reviewed; discussed weight loss sugery Exposure t o SARS-CoV-2 788285080 Z20.828 [id number] Gavin Thomson MD [address] [address] 04/10/2020 07:58:12 04/11/2020 14:33:04 Obstructive sleep apnea syndrome 20566890 G47.33 CPAP Anxiety 48129035 F41.9 f/u psych; fluoxetine Depressive disorder 3548 9007 F32.9 f/u psych; fluoxetine ; now with wellbutrin Essential hypertension 45050583 I10 hctz; low salt; check labs; Vitamin D deficiency 347 70233 E55.9 check level Body mass index 30+ - obesity 791344095 Z68.42 diet reviewed; discussed weight loss surgery Exposure t o SARS-CoV-2 743163850 Z20.828 [id number] [facility] [address] [address] 10/04/2020 07:53:36 10/04/2020 10:08:31 Obstructive sleep apnea syndrome 64404075 G47.33 CPAP Vitamin D deficiency 347 88312 E55.9 check level Anxiety 37618596 F41.9 f/u psych; fluoxetine Essential hypertension 44132941 I10 hctz; low salt; check labs; Depressive disorder 3548 9007 F32.9 f/u psych; fluoxetine ; now with wellbutrin Body mass index 30+ - obesity 075943644 Z68.42 diet reviewed; discussed weight loss surgery [id number] Gavin Thomson MD [address] [address] 08/19/2021 09:03:00 08/19/2021 10:18:49 Obstructive sleep apnea syndrome 37049659 G47.33 CPAP Vitamin D deficiency 347 [address]403 E55.9 check level Anxiety 48213461 F41.9 f/u psych; fluoxetine Depressive disorder 3548 9007 F32.9 f/u psych; fluoxetine ; now with wellbutrin Essential hypertension 06110897 I10 hctz; low salt; check labs; Allergic rhinitis 351473 04 J30.9 Impaired f asting glycemia 631522174 R73.01 [id number] [facility] [address] [address] 12/05/2022 08:11:00 12/05/2022 09:07:09 Obstructive sleep apnea syndrome 14540918 G47.33 CPAP Anxiety 13568697 F41.9 f/u psych; fluoxetine Depressive disorder 3548 9007 F32.9 f/u psych; fluoxetine ; now with wellbutrin Essential hypertension 55484246 I10 hctz; low salt; check labs; Vitamin D deficiency 347 98402 E55.9 check level History an d physical examination, [facility] 78162850 Z02.0 needs he;p B SABneeds viral titres orderednee ds IGRAobes Obesity 181114791 E66.9 diet discussed [id number] MD Sola Koch [address] [place] [address] 02/04/2024 10:28:43 02/04/2024 12:15:32 Obesity 237683722 E66.9 diet discussed Obstructiv e sleep apnea syndrome 26756243 G47.33 CPAP Allergic rhinitis 807452 04 J30.9 Anxiety 84776139 F41.9 f/u psych; fluoxetine Essential hypertension 37574435 I10 hctz; low salt; check labs;bp checks on methylphen idate call with results Depressive disorder 3548 9007 F32.9 f/u psych; fluoxetine ; Attention deficit hyperactivity disorder 909367787 F90.9 continue psych therapy [id number] Gavin Thomson MD [facility] [place] [address] [address] [place] [address] 02/23/2024 08:52:23 02/23/2024 09:19:34 Attention deficit hyperactivity disorder 703747118 F90.9 continue psych therapy Obstructiv e sleep apnea syndrome 29007881 G47.33 CPAP Depressive disorder 3548 9007 F32.9 f/u psych; fluoxetine ; Essential hypertension 98769302 I10 add losartan 25 mgreduce to 12.5 mg prior: hctz; low salt; check labs;bp checks on methylphen idate call with results [id number] Gavin Thomson MD [facility] [place] [address] [address] 03/24/2024 10:05:45 03/24/2024 10:30:54 Attention deficit hyperactivity disorder 280827769 F90.9 continue psych therapy Obesity 739597396 E66.9 diet discussed Obstructiv e sleep apnea syndrome 13845350 G47.33 CPAP Anxiety 92719103 F41.9 f/u psych; fluoxetine Essential hypertension 07437180 I10 add losartan 25 mgcontinue hctz at 25 mg prior: hctz; low salt; check labs;bp checks on methylphen idate call with results [id number] Gavin Thomson MD [facility] [place] [address] [address] 08/09/2024 14:44:59 08/11/2024 08:04:12 Attention deficit hyperactivity disorder 769733816 F90.9 continue psych therapy Obesity 917690345 E66.9 diet discussed Obstructiv e sleep apnea syndrome 72550223 G47.33 CPAP Depressive disorder 3548 9007 F32.9 f/u psych; fluoxetine ; Essential hypertension 12522639 I10 add losartan 25 mgcontinue hctz at 25 mg prior: hctz; low salt; check labs;bp checks on methylphen idate call with results [id number] Gavin Thomson MD [address] [address] 08/30/2024 14:16:44 09/01/2024 13:10:38 Attention deficit hyperactivity disorder 266315327 F90.9 continue psych therapy Obesity 095153468 E66.9 diet discussed Obstructiv e sleep apnea syndrome 18993856 G47.33 CPAP Anxiety 21515661 F41.9 f/u psych; fluoxetine Depressive disorder 3548 9007 F32.9 f/u psych; fluoxetine ; Essential hypertension 57488593 I10 add losartan 25 mgcontinue hctz at 25 mg prior: hctz; low salt; check labs;bp checks on methylphen idate call with results [id number] Gavin Thomson MD [address] [address] 11/15/2024 08:26:57 11/15/2024 12:17:49 Attention deficit hyperactivity disorder 944636973 F90.9 continue psych therapy Obesity 066610933 E66.9 s/p gastri sleevediet discussed Obstructiv e sleep apnea syndrome 88127522 G47.33 CPAP Depressive disorder 3548 9007 F32.9 f/u psych; fluoxetine ; Essential hypertension 74814155 I10 add losartan 25 mgcontinue hctz at 25 mg prior: hctz; low salt; check labs;bp checks on methylphen idate call with results Anxiety 44709305 F41.9 f/u psych; fluoxetine Health Concerns Section Related Observation LastModified by Organization Detai ls LastModified Time None Recorded Concern Status LastModified by Organization Details LastModified Time None Recorded Advance Directives Directive None Recorded Payers Insurance Date Sequence Insurance Name Policy Number Policy Grewal Covered Member ID Grewal Member ID Guarantor Name 11/12/2024 1 [place] [id number] Mannie Romero [id number] Beckie Edouard 11/15/2024 2 [place] [facility] [place] [id number] Beckie Edouard [id number] Beckie Edouard 11/20/2024 2 UNSPECIFIED REMIT PAYOR Beckie Edouard OBGyn Episode No OBEpisode recorded.
== END 2025-02-07 08:10 | disposition home or self-care (01) ==
LOC: HO.HBS 08:03
PROVIDERS: PCP Internal Medicine; Visit Provider Physician Assistant Surgical
DX: Z98.84 Bariatric surgery status (principal)
CPT/HCPCS: 99024

== ENCOUNTER 2025-04-10 10:59 | Outpatient (AMB) | payer BC, SELFPAY ==
--- NOTE | 2025-04-10 10:29 | A.OFFVIS_ITS ---
VS Expanded 04/10/25 10:33 Height 5 ft 6 in Weight 145 lb BMI 23.4 Intake Visit Reasons: TV PO LSG 11/10/24 Allergies pollen extracts Allergy (Intermediate, Verified 12/06/24 13:35) Itchy Eyes Medication List - Last Reconciled 04/10/25 by BHUMIKA Diamond bupropion HCl XL (Wellbutrin XL) 150 mg PO QAM drospirenone-ethinyl estradiol 3-0.02 mg (MARGARET (28)) 1 tab PO DAILY fluoxetine (Prozac) 60 mg PO BEDTIME lurasidone 40 mg PO BEDTIME modafinil 100 mg PO DAILY spironolactone 50 mg PO BID trazodone 75 mg PO BEDTIME PRN HPI Comments Details: This a 34 yo female who is s/p LSG without hiatal hernia repair on 11/10/2024. Presents for 5 month post op visit. Weight today is 145 pounds, with a BMI of 2 6.9. Initial weight 323 pounds since starting the program on 04/08/2024 No complaints of nausea, emesis, abdominal pain or reflux. Reports infrequent but normal bowel movements every 2-3 days and uses stool softeners regularly. Improved w miralax. She is having excess skin of the thighs, arms and stomach. She is not having any rashes or difficulty with ADLs. She does report clothing does not fit well anymore due to the excess skin. Stomach and arms are most bothersome. Satisfied with her meal plan. Present meal plan includes: Atkins RTD shake 6 oz w 2 oz almond milk at 8-10 Atkins bar 11-1 entire shake 2-4 meal at 5 pm with 3 forks protein and 3 forks veg 1/2 bar 7-9 drinking 60 oz fluids Exercise routine includes: treadmill daily 100 min, 1000 ann, speed 3.5, incline 4-10 [facility] Medical History (Updated 01/15/25 @ 08:26 by Ralph Pinon MD) BMI 34.0-34.9,adult Gastritis Bipolar 1 disorder Kidney stone Peptic ulcer Back pain GERD (gastroesophageal reflux disease) Anxiety Depression Obstructive sleep apnea on CPAP Hypertension Morbid obesity Surgical History S/P laparoscopic sleeve gastrectomy History of esophagogastroduodenoscopy (EGD) History of elective Hx of wisdom tooth extraction Family History Paternal Grandmother Colon cancer Maternal Grandmother Breast cancer Paternal Aunt Cervical cancer Paternal Grandfather Mesothelioma Social History Household Members: Spouse Housing: House Are you a primary health care facilities inspector to a significant other at home: No Do you presently have visiting nurse or other home services: No Alcohol intake: current Alcohol intake frequency: holidays/special occasions only Alcohol type: other Patient Tobacco Use Status: Never used Tobacco Telehealth Telehealth Telehealth Platform: Telephone Location of provider rendering services: other Location of patient: address on file Patient Identification confirmed using: Name, : Yes Telehealth method: voice only Patient verbally consented to treatment: Yes Patient verbally consented to billing insurance company: Yes Patient informed of any privacy concerns related to visit: Yes Minutes spent on Phone/Video with Pt.: 12 Assessment & Plan Assessment & Plan (1) S/P laparoscopic sleeve gastrectomy: Code(s): Z.84 - Bariatric surgery status Category: Medical Plan Congratulated pt on achieving healthy BMI. She will continue current meal plan for now, still communicates with Dr. Grewal. She is having issues with excess skin of abdomen, arms, and thighs; primarily abdomen and arms. Labs ordered; pt will have done approx 1mo from now. RTC 3-4mo for phone visit (30 min). Orders: Orders Insulin Today 84 - Bariatric surgery status Ferritin Today Z.84 - Bariatric surgery status C Reactive Protein Today .84 - Bariatric surgery status Comprehensive Met. Panel Today 84 - Bariatric surgery status Vitamin B12 and Folate Today Z.84 - Bariatric surgery status Zinc Today Z.84 - Bariatric surgery status Hemoglobin A1c Today Z98.84 - Bariatric surgery status Complete Blood Count Auto Diff Today Z.84 - Bariatric surgery status TSH reflex Free T4 Today Z98.84 - Bariatric surgery status Vitamin D 25-OH Total Today Z.84 - Bariatric surgery status Vitamin A Today Z.84 - Bariatric surgery status Vitamin B1 Today Z.84 - Bariatric surgery status IRON PROFILE Today Z.84 - Bariatric surgery status Lipid Panel Today Z.84 - Bariatric surgery status
[2025-04-10 10:33] VITALS: BMI 23.4
== END 2025-04-10 10:59 | disposition home or self-care (01) ==
LOC: HO.HBS 10:59
PROVIDERS: PCP Internal Medicine; Visit Provider Physician Assistant Surgical
DX: Z71.3 Dietary counseling and surveillance (principal); Z90.3 Acquired absence of stomach [part of]; Z98.84 Bariatric surgery status
CPT/HCPCS: 98967

== ENCOUNTER 2025-06-03 09:36 | Outpatient (REF) | payer BC, SELFPAY ==
--- OUTSIDE RECORDS SUMMARY | 2025-06-03 09:40 | XMS_ITS | Data Portability ---
Author Organization [facility], [place] Address [address] [place] [address] Assessment No assessment recorded. Plan of Treatment Reminders Order Date Submit Date Provider Last Modified By Organization Details Last Modified Time Details Appointments None recorded. Lab None recorded. Referral None recorded. Procedures None recorded. Surgeries None recorded. Imaging None recorded. Medication Orders Zepbound 2.5 mg/0.5 mL subcutaneou s pen injector [address] [place] [address] Pharmacy, [address] [place], [address], 5 08:43:59 Patient TargetsNo targets recorded. Patient InstructionsNo instructions recorded. Reason for Referral None Reported. Results Created Date Observation Date Name Description Value Unit Range Abnormal Flag Note LastModifiedBy Organization Detail LastModifiedTime Result Notes None recorded. Problems Name Problem SNOMED Code Status Onset Date Resolution Date Notes Provider Name and Address Organization Details Recorded Time Essential hypertension 76046367 Active 2018 Gavin [place] MD [address] [place] [address], [place], [address], [place] - P[place]/WIP 9 14:42:20 Depressive disorder 56558162 Active 2018 Gavin [place] MD [address] [place] [address], [place], [address], [place] 9 14:42:45 Anxiety 59851049 Active 2018 Gavin [place] MD [address] [place] [address], [place], [address], [place] PMA/WIP 9 14:42:52 Vitamin D deficiency 24337525 Active 2018 Gavin [place] MD [address] [place] [address], [place], [address], [place] 9 14:43:13 Obstructive sleep apnea syndrome 29368457 Active 2018 on CPAP Gavin [place] MD [address] [place] [address], [place], [address], [place] 9 14:43:42 Allergic rhinitis 56740396 Active 2019 Gavin [place] MD [address] [place] [address], [place], [address], [place] 0 12:02:22 Obesity 887716963 Active 2022 Gavin [place] MD [address] [place] [address], [place], [address], [place] 3 09:03:19 Attention deficit hyperactivity disorder 399974200 Active 2023 Gavin [place] MD [address] [place] [address], [place], [address], [place] - P[place]IP 4 11:08:11 Notes:Some problems listed i n Document: #[id number] could not be added to this patient's [...] Not Available fluoxetine 40 mg capsule TAKE 1 CAPSULE BY MOUTH [...] Available Not Available propranolol 10 mg tablet TAKE 1 TABLET BY MOUTH ONCE DAILY NEEDED FOR ANXIETY active Not Available Not Available No t Available modafinil 200 mg tablet TAKE 1 TABLET BY MOUTH ONCE DAILY 04/11 completed Not Available Not Available Not Available pantoprazol [...] Take 1 tablet by mouth once daily 04/11 completed Not Available Not Available Not Available bupropion HCl 75 mg tablet TAKE 1 TABLET BY MOUTH TWICE DAILY 02/03 completed Not Available Not Available Not Available hydrochloro thiazide 25 mg tablet Take 1 tablet by mouth once daily 04/11 completed Not Available Not Available Not Available polyethylen e glycol 3350 17 gram/dose [...] tablet DISSOLVE 1 TABLET IN MOUTH EVERY 6 HOURS NEEDED FOR NAUSEA AND VOMITING active Not Available Not Available No t Available fluoxetine 20 mg capsule TAKE 1 CAPSULE BY MOUTH ONCE DAILY active Not Available Not Available No t Available spironolact one 50 mg tablet TAKE 1 TABLET BY MOUTH TWICE DAILY active Not Available Not Available No t Available atomoxetine 18 mg capsule TAKE 1 CAPSULE BY MOUTH ONCE DAILY 11/15 completed Not Available Not Available Not Available atomoxetine 60 mg capsule TAKE 1 CAPSULE BY MOUTH ONCE DAILY active Not Available Not Available No t Available bupropion HCl XL 300 mg 24 hr tablet, extended release TAKE 1 TABLET BY MOUTH ONCE DAILY IN THE MORNING active Not Available Not Available No t Available bupropion HCl XL 150 mg 24 hr tablet, extended release TAKE 1 TABLET BY MOUTH ONCE DAILY IN THE MORNING active Not Available Not Available No t [...] completed Not Available Not Available Not Available lisdexamfet amine 10 mg capsule TAKE 1 CAPSULE BY MOUTH ONCE DAILY IN THE MORNING active Not Available Not Available No t Available methylpheni date 08/09 completed Not Available Not Available Not Available Sunosi 75 mg tablet TAKE 1 TABLET BY MOUTH ONCE DAILY 04/11 completed Not Available Not Available Not Available Zepbound 2.5 mg/0.5 mL subcutaneou s pen injector active Not Available Not Available Not Available Vitals Date Recorded Body weight Oxygen saturation Heart rate Systolic And Diastolic Provider Name and Address Organization Details Last Updated DateTime 08/09/2024 532085.2 g 98 % 96 /min 120/80 mm[Hg] [facility] 08/09/2024 14:47:36 Date Recorded Body weight Oxygen saturation Heart rate Systolic And Diastolic Provider Name and Address Organization Details Last Updated DateTime 08/30/2024 408973.0 5 g 95 % 82 /min 130/80 mm[Hg] [facility] 08/30/2024 14:36:13 Date Recorded Body weight Oxygen saturation Heart rate Systolic And Diastolic Provider Name and Address Organization Details Last Updated DateTime 11/15/2024 60493.54 g 97 % 75 /min 128/88 mm[Hg] [facility] 11/15/2024 08:29:09 Date Recorded Systolic And Diastolic Provider Name and Address Organization Details Last Updated DateTime 03/24/2024 132/80 mm[Hg] Gavin [place] MD [address] [place] [address], [address], [place], [address], [place] - PMA/WIP 03/24/2024 10:28:47 Date Recorded Body weight Oxygen saturation Heart rate Systolic And Diastolic Provider Name and Address Organization Details Last Updated DateTime 03/24/2024 363284.1 1 g 98 % 73 /min 146/92 mm[Hg] [facility] 03/24/2024 10:09:27 Date Recorded Body weight Oxygen saturation Heart rate Systolic And Diastolic Provider Name and Address Organization Details Last Updated DateTime 04/11/2025 58173.89 g 98 % 79 /min 100/70 mm[Hg] [facility] 04/11/2025 10:32:04 Social History Question Answer Notes LastModified by Organizat ion Details LastModified Time Tobacco Smoking Status Never Smoker Not Available [employer] 04/26/2020 03:13:01 What Was The Date Of Your Most Recent Tobacco Screening? 01/18/2019 [id number] Information not available 04/26/2020 Sex: Female Functional [...] mcg/0.25mL dose 2 completed Gavin [place] MD [address] [place] [address], [address], [place] - PMA/WIP 12/05/2022 08:17:49 COVID-19, mRNA, LNP-S, PF, 30 mcg/0.3 mL dose 1 completed Gavin [place] MD [address] [place] [address], [address], [place] - [place]/WIP 12/05/2022 08:17:49 COVID-19, mRNA, LNP-S, PF, 30 mcg/0.3 mL dose 1 completed Gavin [place] MD [address] [place] [address], [address], [place] 12/05/2022 08:17:49 Influenza, split virus, quadrivalent, preservative 9 completed Elvia vásquez, [place] - PMA/WIP 05/30/2019 09:12:53 Past Encounters Encounter ID Performer Location Encounter Start Date Encounter Closed Date Diagnosis/Indication Diagnosis SNOMED-CT Code Diagnosis ICD10 Code Diagnosis IMO Codes Diagnosis Note [id number] Gavin [place] MD [facility] [address] [address] 01/18/2019 14:34:53 01/19/2019 08:15:20 Body mass index 30+ - obesity 553826255 Z68.42 diet reviewed; discussed weight loss sugery Essential hypertension 16643391 I10 hctz, diet Obstructiv e sleep apnea syndrome 93837285 G47.33 CPAP [id number] MD [place] [address] [place] [address] 05/30/2019 08:47:16 05/31/2019 07:30:50 Obstructive sleep apnea syndrome 52797822 G47.33 CPAP Depressive disorder 3548 9007 F32.9 f/u psych; fluoxetine Anxiety 87778818 F41.9 f/u psych; fluoxetine Essential hypertension 91007129 I10 hctz; low salt Vitamin D deficiency 347 62317 E55.9 check level [id number] MD Sophy Koch [address] [address] 11/24/2019 10:13:22 11/24/2019 12:59:09 Depressive disorder 86116321 F32.9 f/u psych; fluoxetine Anxiety 40251967 F41.9 f/u psych; fluoxetine Obstructiv e sleep apnea syndrome 56318463 G47.33 CPAP Essential hypertension 54386794 I10 hctz; low salt Body mass index 30+ - obesity 788492801 Z68.42 diet reviewed; discussed weight loss sugery Exposure t o SARS-CoV-2 836514165 Z20.828 [id number] [facility] [place] [facility] [address] [address] 04/10/2020 07:58:12 04/11/2020 14:33:04 Obstructive sleep apnea syndrome 08183031 G47.33 CPAP Anxiety 01269948 F41.9 f/u psych; fluoxetine Depressive disorder 3548 9007 F32.9 f/u psych; fluoxetine ; now with wellbutrin Essential hypertension 94439136 I10 hctz; low salt; check labs; Vitamin D deficiency 347 78486 E55.9 check level Body mass index 30+ - obesity 237295008 Z68.42 diet reviewed; discussed weight loss surgery Exposure t o SARS-CoV-2 886805081 Z20.828 [id number] Gavin [place] MD [address] [address] 10/04/2020 07:53:36 10/04/2020 10:08:31 Obstructive sleep apnea syndrome 76109273 G47.33 CPAP Vitamin D deficiency 347 93139 E55.9 check level Anxiety 59495815 F41.9 f/u psych; fluoxetine Essential hypertension 28187806 I10 hctz; low salt; check labs; Depressive disorder 3548 9007 F32.9 f/u psych; fluoxetine ; now with wellbutrin Body mass index 30+ - obesity 035004517 Z68.42 diet reviewed; discussed weight loss surgery [id number] Gavin [place] MD [address] [address] 08/19/2021 09:03:00 08/19/2021 10:18:49 Obstructive sleep apnea syndrome 20555026 G47.33 CPAP Vitamin D deficiency 347 60718 E55.9 check level Anxiety 67905726 F41.9 f/u psych; fluoxetine Depressive disorder 3548 9007 F32.9 f/u psych; fluoxetine ; now with wellbutrin Essential hypertension 05187930 I10 hctz; low salt; check labs; Allergic rhinitis 626356 04 J30.9 Impaired f asting glycemia 076687532 R73.01 [id number] Gavin [place] MD [address] [address] 12/05/2022 08:11:00 12/05/2022 09:07:09 Obstructive sleep apnea syndrome 45679240 G47.33 CPAP Anxiety 63047787 F41.9 f/u psych; fluoxetine Depressive disorder 3548 9007 F32.9 f/u psych; fluoxetine ; now with wellbutrin Essential hypertension 04618139 I10 hctz; low salt; check labs; Vitamin D deficiency 347 20322 E55.9 check level History an d physical examination, school 45728421 Z02.0 needs he;p B SABneeds viral titres orderednee ds IGRAobes Obesity 577322160 E66.9 diet discussed [id number] [facility] [place] [facility] [address] [address] 02/04/2024 10:28:43 02/04/2024 12:15:32 Obesity 194309541 E66.9 diet discussed Obstructiv e sleep apnea syndrome 10995018 G47.33 CPAP Allergic rhinitis 095056 04 J30.9 Anxiety 26208068 F41.9 f/u psych; fluoxetine Essential hypertension 91515587 I10 hctz; low salt; check labs;bp checks on methylphen idate call with results Depressive disorder 3548 9007 F32.9 f/u psych; fluoxetine ; Attention deficit hyperactivity disorder 269350482 F90.9 continue psych therapy [id number] [facility] [place] [facility] [address] [address] 02/23/2024 08:52:23 02/23/2024 09:19:34 Attention deficit hyperactivity disorder 597247487 F90.9 continue psych therapy Obstructiv e sleep apnea syndrome 93857365 G47.33 CPAP Depressive disorder 3548 9007 F32.9 f/u psych; fluoxetine ; Essential hypertension 12424798 I10 add losartan 25 mgreduce to 12.5 mg prior: hctz; low salt; check labs;bp checks on methylphen idate call with results [id number] Gavin [place] MD [facility] [place] [address] [address] 03/24/2024 10:05:45 03/24/2024 10:30:54 Attention deficit hyperactivity disorder 560039661 F90.9 continue psych therapy Obesity 605142576 E66.9 diet discussed Obstructiv e sleep apnea syndrome 43837234 G47.33 CPAP Anxiety 50667770 F41.9 f/u psych; fluoxetine Essential hypertension 59583741 I10 add losartan 25 mgcontinue hctz at 25 mg prior: hctz; low salt; check labs;bp checks on methylphen idate call with results [id number] [facility] [place] [facility] [address] [place] [address] 08/09/2024 14:44:59 08/11/2024 08:04:12 Attention deficit hyperactivity disorder 538096591 F90.9 continue psych therapy Obesity 009303214 E66.9 diet discussed Obstructiv e sleep apnea syndrome 82377316 G47.33 CPAP Depressive disorder 3548 9007 F32.9 f/u psych; fluoxetine ; Essential hypertension 38806912 I10 add losartan 25 mgcontinue hctz at 25 mg prior: hctz; low salt; check labs;bp checks on methylphen idate call with results [id number] Gavin [place] MD [facility] [place] [address] [address] 08/30/2024 14:16:44 09/01/2024 13:10:38 Attention deficit hyperactivity disorder 546296405 F90.9 continue psych therapy Obesity 125477740 E66.9 diet discussed Obstructiv e sleep apnea syndrome 72390259 G47.33 CPAP Anxiety 82648502 F41.9 f/u psych; fluoxetine Depressive disorder 3548 9007 F32.9 f/u psych; fluoxetine ; Essential hypertension 22902398 I10 add losartan 25 mgcontinue hctz at 25 mg prior: hctz; low salt; check labs;bp checks on methylphen idate call with results [id number] Gavin [place] MD [facility] [place] [address] [address] 11/15/2024 08:26:57 11/15/2024 12:17:49 Attention deficit hyperactivity disorder 951311152 F90.9 continue psych therapy Obesity 054042000 E66.9 s/p gastri sleevediet discussed Obstructiv e sleep apnea syndrome 92810274 G47.33 CPAP Depressive disorder 3548 9007 F32.9 f/u psych; fluoxetine ; Essential hypertension 85423472 I10 add losartan 25 mgcontinue hctz at 25 mg prior: hctz; low salt; check labs;bp checks on methylphen idate call with results Anxiety 66680319 F41.9 f/u psych; fluoxetine [id number] Gavin MD S[place] Zhao [facility] [address] [facility] [address] [place] [address] 04/11/2025 10:27:20 04/11/2025 12:29:36 Attention deficit hyperactivity disorder 450505036 F90.9 continue psych therapy Obstructiv e sleep apnea syndrome 24741306 G47.33 CPAP Anxiety 81821147 F41.9 f/u psych; fluoxetine Depressive disorder 3548 9007 F32.9 f/u psych; fluoxetine ; Essential hypertension 79180162 I10 add losartan 25 mgcontinue hctz at 25 mg prior: hctz; low salt; check labs;bp checks on methylphen idate call with results Weight decreased 9291298 01 R63.4 [id number] after surgery Vasovagal syncope 789013 005 R55 07276 fluids Health Concerns Section Related Observation LastModified by Organization Detai ls LastModified Time None Recorded Concern Status LastModified by Organization Details LastModified Time None Recorded Advance Directives Directive None Recorded Payers Insurance Date Sequence Insurance Name Policy Number Policy Grewal Covered Member ID Grewal Member ID Guarantor Name 04/11/2025 1 [place] [id number] Mannie Romero [id number] Beckie Edouard 04/23/2025 2 [facility] [facility] [place] [place] [id number] Beckie Edouard [id number] Beckie Edouard 11/20/2024 2 UNSPECIFIED REMIT PAYOR Beckie Edouard Notes Date Note Type Note Provider Name and Address Organization Details Recorded Time 03/24/2024 text/html doing well; no prob with meds;on losartan 25 mg hctz 25 mgbp at home 125/72now on zyprexa 7.5fluoxetine 60 mg Gavin [place] MD [address] [place] [address], [address], [place], [address], [place] - [place]/W[place] 03/24/2024 10:29:10 08/09/2024 text/html doing ok2 pets this month;tried concerta but choked on tabletsaw gi and had endoscopy for esophageal webbiopsy will have dilation done;had LEEP procedure done;start strattera tomorrow Gavin [place] MD [address] [address], [place], [address], [place] - [place] 08/09/2024 15:18:49 08/30/2024 text/html wanting to lose weighthas been prescribed zepbound before but too expensivenow has new insuranceis considering bariatric surgeryhas lost 76 lbs through diet and exercise but weight loss has stopped Gavin [place] MD [address] [address], [place], [address], [facility] - PMA/WIP 09/01/2024 13:06:39 11/15/2024 text/html wanting to lose weighthas been prescribed zepbound before but too expensivenow has new insuranceis considering bariatric surgeryhas lost 76 lbs through diet and exercise but weight loss has stopped did not start zepboundhad gastric sleeve 5 days a GODO[facility] WELLtakes 2 ml every minute of fluid while awake Gavin [place] MD [address] [place] [address], [place], [address], [facility] - PMA/WIP 11/15/2024 12:12:35 04/11/2025 text/html had episode of orthostatic hypotension;no chest painno spinning;had nausea afterweight loss 180 lbs Gavin [place] MD [address] [place] [address], [place], [address], [place] - [place]/W[place] 04/11/2025 12:13:00 OBGyn Episode No OBEpisode recorded.
--- OUTSIDE RECORDS SUMMARY | 2025-06-03 09:40 | XMS_ITS | Clinical Summary ---
Author Organization [facility] Address [address] [place] [address] Care Team Providers Care Senior Structural Engineer Name Role Phone Gavin Thomson MD Primary Care Provider [phone] Allergies No known active allergies Medications No known medications Encounters Date Type Department Care Team Description 04/10/2025 12:20 PM EDT - 04/10/2025 8:50 PM EDT Emergency [facility] Emergency Department [address] [place] [address] Discharge Disposition: Left Without Being Seen (07) from Last 3 Months Social History Tobacco Use Types Packs/Day Years Used Date Smoking Tobacco: Never Smokeless Tobacco: Never Tobacco Cessation:Counseling Given: No Alcohol Use Standard Drinks/Week Comments Not Currently 0 (1 standard drink = 0.6 oz pur e alcohol) Comments No Sex and Gender Information Value Date Recorded Sex Assigned at Not on file Legal Sex Female 12:20 PM EDT Gender Identity Not on file Sexual Orientation Not on file Last Filed Vital Signs Vital Sign Reading Time Taken Comments Blood Pressure 113/80 04/10/2025 12:47 PM EDT Pulse 75 04/10/2025 12:47 PM EDT Temperature 36.4 C (97.5 F) 04/10/2025 12:47 PM EDT Respiratory Rate 18 04/10/2025 12:47 PM EDT Oxygen Saturation 98% 04/10/2025 12:47 PM EDT Inhaled Oxygen Concentration - - Weight 65.8 kg (145 lb) 04/10/2025 12:47 PM EDT Height - - Body Mass Index - - Plan of Treatment Health Maintenance Due Date Last Done Comments Cervical Cancer Screening 1990 HIV Screening 1990 HPV and Pap Smear 1990 Pap Smear 1990 Varicella Vaccines (1 of 2 - 13+ 2-dose series) 12/13/2003 Hepatitis B Vaccines (1 of 3 - 19+ 3-dose series) 2009 DTaP,Tdap,and Td Vaccines (1 - Tdap) 2012 Alcohol/Substance Use Screening 07/13/2024 Influenza Vaccine (#1) 2025 COVID-19 Vaccine (1 - 2024-2 6 season) 2025 Pneumococcal Vaccine: Pediat jackson (0-5 Years) and At-Risk Patients (6-50 Years) Aged Out No longer eligible b ased on patient's age to complete this topic Procedures * Due to [place] [facility] law, this organization might not be sharing negative HIV tests. Procedure Name Priority Date/Time Associated Diagnosis Comments HCG QUALITATIVE, URINE STAT 04/10/2025 5:38 PM EDT HEPATITIS C ANTIBODY W/REFLEX TO HCV RNA, QUANTITATIVE PCR STAT 04/10/2025 1:02 PM EDT BASIC METABOLIC PANEL STAT 04/10/2025 1:02 PM EDT CBC AUTO DIFFERENTIAL STAT 04/10/2025 1:02 PM EDT ECG 12-LEAD STAT 04/10/2025 12:58 PM EDT from Last 3 Months Results * Due to [place] [facility] law, this organization might not be sharing negative HIV tests. * HCG Qualitative, Urine (04/10/2025 5:38 PM EDT) HCG Qualitative, Urine Negative Negative [facility] 04/10/2025 5:49 PM EDT [facility] Comment: hCG may be negative in early . Suggest repeat testing in 2-4 days if clinically indicated. The results of this test should be interpreted with the patient's clinical presentation. Urine Urine specimen collection, clean catch / Unknown Non-Blood Collection / Unknown 04/10/2025 5:38 PM EDT 04/10/2025 5:41 PM EDT us Protocol French Lc Ed Treatment LAB URINE ORDERAB LES Final Result [facility] [address] [place] [address], [place] * CBC Auto Differential (04/10/2025 1:02 PM EDT) WBC 7.8 3.8 - 10.8 10*3/uL 04/10/2025 1:08 PM EDT [facility] RBC 4.44 3.80 - 5.10 10*6/uL 04/10/2025 1:08 PM EDT [facility] Hemoglobin 14.0 11.7 - 15.5 g/dL 04/10/2025 1:08 PM EDT [facility] Hematocrit 41.7 35.0 - 45.0 % 04/10/2025 1:08 PM EDT [facility] MCV 93.9 80.0 - 100.0 fL 04/10/2025 1:08 PM EDT [facility] MCH 31.5 27.0 - 33.0 pg 04/10/2025 1:08 PM EDT [facility] MCHC 33.6 32.0 - 36.0 g/dL 04/10/2025 1:08 PM EDT [facility] RDW 13.2 11.0 - 15.0 % 04/10/2025 1:08 PM EDT [facility] Platelets 251 140 - 400 10*3/uL 04/10/2025 1:08 PM EDT [facility] MPV 11.1 7.5 - 12.5 fL 04/10/2025 1:08 PM EDT [facility] Neutrophil % 59.5 % 04/10/2025 1:08 PM EDT [facility] Immature Grans % 0.1 0.0 - 0.9 % 04/10/2025 1:08 PM EDT [facility] Lymphocyte % 33.5 % 04/10/2025 1:08 PM EDT [facility] Monocyte % 5.4 % 04/10/2025 1:08 PM EDT [facility] Eosinophil % 1.2 % 04/10/2025 1:08 PM EDT [facility] Basophil % 0.3 % 04/10/2025 1:08 PM EDT [facility] Neutrophil # 4.63 1.50 - 7.80 10*3/uL 04/10/2025 1:08 PM EDT [facility] Immature Grans # <0.03 <=0.03 10*3/uL 04/10/2025 1:08 PM EDT [facility] Lymphocyte # 2.60 0.85 - 3.90 10*3/uL 04/10/2025 1:08 PM EDT [facility] Monocyte # 0.40 0.20 - 0.95 10*3/uL 04/10/2025 1:08 PM EDT [facility] Eosinophil # 0.10 0.02 - 0.50 10*3/uL 04/10/2025 1:08 PM EDT [facility] Basophil # <0.03 0.00 - 0.20 10*3/uL 04/10/2025 1:08 PM EDT [facility] nRBC % 0.0 /100 WBCs 04/10/2025 1:08 PM EDT [facility] nRBC # <0.01 <0.01 10*3/uL 04/10/2025 1:08 PM EDT [facility] Blood Structure of peripheral vein / Unknown Venipuncture / Unknown 04/10/2025 1:02 PM EDT 04/10/2025 1:05 PM EDT Protocol French Lc Ed Treatment MD LAB BLOOD ORDERAB LES Final Result Performing Organization Address City/[facility]/ZIP Co de Phone Number [facility] [address] [place] [id number], [place] * Hepatitis C Antibody w/Reflex to HCV RNA, Quantitative PCR (04/10/2025 1:02 PM EDT) Hepatitis C Antibody Interpretation Nonreactive Nonreactive 04/11/2025 2:16 PM EDT [facility] Blood Structure of peripheral vein / Unknown Venipuncture / Unknown 04/10/2025 1:02 PM EDT 04/10/2025 1:06 PM EDT us Instant Order Physician LAB BLOOD ORDERABLES Fin al Result Performing Organization Address City/[facility]/ZIP Co de Phone Number [facility] [address] [place] [id number], [place] * Basic Metabolic Panel (04/10/2025 1:02 PM EDT) NA 141 135 - 145 mmol/L 04/10/2025 1:45 PM EDT [facility] K 4.5 3.5 - 5.3 mmol/L 04/10/2025 1:45 PM EDT [facility] Cl 105 98 - 107 mmol/L 04/10/2025 1:45 PM EDT [facility] CO2 23 22 - 32 mmol/L 04/10/2025 1:45 PM EDT [facility] BUN 17 7 - 23 mg/dL 04/10/2025 1:45 PM EDT [facility] Creatinine 0.99 0.50 - 1.20 mg/dL 04/10/2025 1:45 PM EDT [facility] Glucose 98 65 - 99 mg/dL 04/10/2025 1:45 PM EDT [facility] Calcium 9.6 8.6 - 10.5 mg/dL 04/10/2025 1:45 PM EDT [facility] Anion Gap 13 5 - 15 04/10/2025 1:45 PM EDT [facility] eGFR 77 >=60 mL/min/1. 73m2 04/10/2025 1:45 PM EDT [facility] Comment:The estimated glomer ular filtration rate (eGFR) is calculated using a new formula developed by the NKF-ASN task force to eliminate race-based correction factors. The new formula uses serum/plasma creatinine, age, and gender to determine eGFR. A value below 60mls/min might indicate kidney disease and will be flagged. For additional information, see Kebede et al, Am J Kidney Dis. 2021;79(2):268- 288, A Unifying Approach for GFR estimation: Recommendations of the NKF-ASN Task Force on Reassessing the Inclusion of Race in Diagnosing Kidney Disease . Blood Structure of peripheral vein / Unknown Venipuncture / Unknown 04/10/2025 1:02 PM EDT 04/10/2025 1:06 PM EDT us Protocol French Lc Ed Treatment LAB BLOOD ORDERAB LES Final Result [facility] [address] [place] [address], * ECG 12 lead For Preop? No (04/10/2025 12:58 PM EDT) Ventricular Rate EKG 78 BPM MUSE EKG Atrial Rate [address] Interval 144 ms MUSE EKG QRS Interval 84 ms MUSE EKG QT Interval 402 ms MUSE EKG QTC Interval 458 ms MUSE EKG P [place] 60 degrees MUSE EKG R [place] 41 degrees MUSE EKG T Wave [place] 52 degrees MUSE EKG 04/10/2025 12:5 8 PM EDT 04/13/2025 12:09 AM EDT Impressions MUSE EKG - 04/12/2025 11:59 PM EDT Normal sinus rhythm Normal ECG No previous ECGs available Confirmed by Dimitry Vargas ([id number]) on 04/12/2025 11:59:54 PM Also confirmed by Dimitry Vargas ([id number]) on 04/13/2025 12:09:40 AM Narrative Procedure Note Dimitry Vargas MD - 04/13/2025 IMPRESSION: Normal sinus rhythm Normal ECG No previous ECGs available Confirmed by Dimitry Vargas ([id number]) on 04/12/2025 11:59:54 PM Also confirmed by Dimitry Vargas ([id number]) on 04/13/2025 12:09:40 AM us Protocol [facility] Ed Treatment ECG ORDERABLES E dited Result - Final MUSE EKG from Last 3 Months Insurance [employer] Care Teams Senior Structural Engineer Relationship Specialty Start Date End Date Gavin Thomson MD [address] [place] [phone] PCP - General Internal Medicine 04/07/25
[2025-06-03 09:49] LABS: MANUAL DIFF FLAG NO
[2025-06-03 10:10] LABS: Hematocrit 42.1 % (37.0-47.0); Hemoglobin 14.1 g/dl (12.0-16.0); Imm Gran Abs Auto 0.01 X10*3/uL (0.00-0.03); Imm Gran Pct Auto 0.2 % (0.0-0.4); Lymphocytes Absolute Auto 3.4 X10*3/uL (1.2-4.9); Mean Corpuscular HGB Conc 33.5 g/dl (31.0-35.0); Mean Corpuscular Hemoglobin 32.0 pg (27.0-33.0); Mean Corpuscular Volume 95.7 fL (80.0-98.0); NRBC Abs Auto 0.000 X10*3/uL (0.0-0.012); NRBC Pct Auto 0.0 /100WBC (0.0-0.2); Platelet Count 274 X10*3/uL (160-400); Red Blood Count 4.40 X10*6/uL (4.20-5.50); White Blood Count 6.5 X10*3/uL (4.8-10.8)
[2025-06-03 10:55] LABS: Alanine Aminotransferase 14 U/L (0-31); Albumin Level 4.2 g/dL (3.5-5.0); Alkaline Phosphatase 54 U/L (39-117); Anion Gap 11 (12-20); Aspartate Amino Transferase 19 U/L (5-31); Blood Urea Nitrogen 14 mg/dL (9-16); Calcium 9.7 mg/dL (8.4-10.2); Carbon Dioxide 25 mmol/L (22-29); Chloride 108 mmol/L (96-108); Cholesterol 195 mg/dL (<200); Estimated Glomerular Filt Rate > 60; HDL Cholesterol 59 mg/dL (>40); Iron 94 mcg/dL (30-160); Percent Iron Saturation 44 % (15-50); Potassium 3.8 mmol/L (3.3-5.1); Sodium 140 mmol/L (135-145); Total Iron Binding Capacity 216 mcg/dL (228-428); Total Protein 6.8 g/dL (6.5-8.0); Triglycerides 46 mg/dL (<150); Unsaturated Iron Binding 122 ug/dL
[2025-06-03 11:13] LABS: Ferritin 246 ng/mL (10-122)
[2025-06-03 11:20] LABS: Folate 4.7 ng/mL (> or = 4.0); Vitamin B12 1029 pg/mL (200-900)
== END 2025-06-03 09:37 | disposition home or self-care (01) ==
LOC: HO.LAB 09:36
PROVIDERS: PCP Internal Medicine; Visit Provider Physician Assistant Surgical
DX: Z13.1 Encounter for screening for diabetes mellitus (principal); Z13.6 Encounter for screening for cardiovascular disorders; Z13.29 Encounter for screening for other suspected endocrine disorder; Z98.84 Bariatric surgery status
CPT/HCPCS: 36415; 80053; 80061; 82306; 82607; 82728; 82746; 83036; 83525; 83540; 84425; 84443; 84590; 84630; 85025; 86140